=== PATIENT | female | born 1945 | race Caucasian/White ===

== ENCOUNTER 2018-03-06 08:12 | Emergency (ER) | payer MEDICARE, BC, SELFPAY ==
[2018-03-06 08:21] VITALS: BP 142/118; PULSE 91; RESP 16; TEMP 37; O2SAT 96
--- NOTE | 2018-03-06 08:33 | ED.GENADUL_ITS ---
Discharge Plan Disposition Patient Disposition: HOME Condition: Stable Discharge Details Chief Complaint: Abd Prob Clinical Impression: Acute pancreatitis Primary Care Provider: Faith Fink ED Provider: Kirt Wall Home Meds and New Rx's Prescriptions: New ondansetron 4 mg tablet,disintegrating 4 mg PO TID PRN (Reason: nausea and vomiting) 5 Days Qty: 20 RF: 0 oxycodone 5 mg tablet 5 mg PO Q4H PRN (Reason: pain) 10 Days Qty: 12 RF: 0 Continue Lactobac comb [id number] [Probiotic and Acidophilus] 1 EACH capsule 1 ea PO DAILY RF: 0 magnesium oxide [Laxative Dietary Supplement] 500 MG tablet 500 mg PO HS PRN RF: 0 trazodone 50 MG tablet 150 mg PO HS Qty: 270 RF: 4 almotriptan malate [Axert] 12.5 MG tablet 12.5 mg PO as directed Qty: 12 RF: 3 albuterol sulfate [Proventil HFA] 6.7 GM HFA aerosol inhaler 2 puff Inhalation Q4H PRN Qty: 1 RF: 6 fluticasone [Flovent Diskus] 50 MCG blister with device 50 mcg Inhalation BID RF: 0 dicyclomine [Bentyl] 10 MG/1 ML solution 10 mg PO QID RF: 0 gabapentin 100 MG capsule 100 mg PO HS RF: 0 aspirin 325 MG tablet 325 mg PO DAILY RF: 0 vitamins A,C,A-mxnb-ontfbu [PreserVision AREDS] 1 EACH capsule 1 ea PO DAILY RF: 0 Discharge Instructions Instructions: Pancreatitis (ED) Additional Instructions: for pain take 1000mg tylenol and 600mg ibuprofen every 6 hours for pain. If you need additional pain relief take 1 oxycodone follow up this week with your primary care provider's office if you have severe worsening of pain, high fevers or difficulty breathing return to the emergency department Discharge Data Discharge Physician: Kirt Wall Medical Decision Making 72 yo female with hx of zabrina, 2 partial bowel resection, who comes in with intermittent abdominal pain and bloating since december but worse this past week. She has had nausea but no vomit due to her prior zabrina. Has had increased bleching. She saw her pcp yesterday who started her on meds to help her have stools as prior to yesterday she hadn't had a stool in a week. Given her tenderness and hx will obtain labs and imaging to eval for pancreatitis vs sbo. Has no pain out of proprotion to exam so doubt mesenteric ischemia. pt feels better with toradol and zofran, lab work shows lipase in the 400's, has had elevations in the past but is not aware of prior diagnosis of pancreatitis. Awaiting imaging. Doesn't drink alcohol and has no known hx of gallstones so unclear cause of her pancreatitis imaging shows inflammation of the pancreas otherwise no findings. I recommended admission for pain control and fluids but she declined this as she feels she can adequately treat her pain at home. She is hd stable so feel this is reasonable, she has the capacity to make her own decisions and understands she must return if she worsens. Will have her f/u this week with her pcp's office Differential Diagnosis sbo, pancreatitis, ibs HPI General Mode of arrival: ambulatory . Date/Time Provider Initiated Documentation: 03/06/18 08:21 . Limitations to Documentation: no limitations . Information obtained by: patient . History of Present Illness 72 year old F presents to the emergency department with the chief complaint of abdominal pain, described as moderate, with intensity rated at 6. Quality is described as stabbing, and is localized to the abdomen. Patient reports no radiation. Patient started experiencing this week(s) (2) and it has been intermittent. No relieving factors improve symptom(s), No exacerbating factors reported . Patient notes other (nausea). Related Data Home Medications Medication Instructions Recorded Confirmed Lactobac comb 5-[id number] 1 ea PO DAILY 08/24/12 03/06/18 [Probiotic and Acidophilus] magnesium oxide [Laxative Dietary 500 mg PO HS PRN 08/24/12 03/06/18 Supplement] albuterol sulfate [Proventil HFA] 2 puff INHALATION Q4H PRN #1 02/12/16 03/06/18 inhaler almotriptan malate [Axert] 12.5 mg PO as directed #12 tab 02/12/16 03/06/18 trazodone 150 mg PO HS #270 tab-cap 02/12/16 03/06/18 vitamins A,C,M-jdek-mrnzwe 1 ea PO DAILY 03/25/16 03/06/18 [PreserVision AREDS] aspirin 325 mg PO DAILY tab-cap 09/24/17 03/06/18 dicyclomine [Bentyl] 10 mg PO QID 09/24/17 03/06/18 fluticasone [Flovent Diskus] 50 mcg INHALATION BID disk 09/24/17 03/06/18 gabapentin 100 mg PO HS tab-cap 09/24/17 03/06/18 ondansetron 4 mg PO TID PRN 5 Days #20 tab 03/06/18 oxycodone 5 mg PO Q4H PRN 10 Days #12 tab 03/06/18 Previous Rx's Medication Instructions Recorded ondansetron 4 mg PO TID PRN 5 Days #20 tab 03/06/18 oxycodone 5 mg PO Q4H PRN 10 Days #12 tab 03/06/18 Allergies Allergy/AdvReac Type Severity Reaction Status Date / Time codeine Allergy Mild Itching Unverified 03/06/18 08:25 hydromorphone Allergy Mild PRURITIS Unverified 03/06/18 08:25 morphine Allergy Mild PRURITIS Unverified 03/06/18 08:25 oxycodone Allergy Mild ITCH Unverified 03/06/18 08:25 polyethylene glycol Allergy Unknown HIVES Unverified 03/06/18 08:25 topiramate AdvReac Nausea Unverified 03/06/18 08:25 verapamil AdvReac HYPOTENSION Unverified 03/06/18 08:25 General Stated Complaint: Abd Prob SERENA: 3 Review of Systems Review of Systems All systems reviewed & are unremarkable except as noted in HPI and below Constitutional Denies chills, Denies fever(s) and Denies weakness Eyes Denies loss of vision ENT Denies change in voice Cardiovascular Denies chest pain and Denies dyspnea Respiratory Denies dyspnea Gastrointestinal Denies vomiting Genitourinary Denies dysuria Musculoskeletal Denies joint swelling Integumentary/Breasts Denies rash Neurologic Denies loss of vision and Denies weakness Psychiatric Denies depression Endocrine Denies cold intolerance and Denies heat intolerance PFSH Family History Mother Essential hypertension Personal history of malignant neoplasm Hyperlipidemia Father Diabetes Heart disease Sister Diabetes Brother Diabetes Essential hypertension Personal history of malignant neoplasm Hyperlipidemia Grandfather No problems noted. Grandfather No problems noted. Grandmother No problems noted. Grandmother No problems noted. Brother Alcohol abuse Personal history of malignant neoplasm Depression Obesity Brother No problems noted. Brother Diabetes Essential hypertension Heart disease Hyperlipidemia Brother Essential hypertension Heart disease Hyperlipidemia Myocardial infarction Brother Essential hypertension Depression Hyperlipidemia Sister Diabetes Essential hypertension Depression Hyperlipidemia Obesity Sister Benign neoplasm of brain Diabetes Essential hypertension Depression Hyperlipidemia Hypothyroidism Sister Diabetes Essential hypertension Depression Hyperlipidemia Sister Diabetes Essential hypertension Depression Hyperlipidemia Obesity Sister Diabetes Essential hypertension Hyperlipidemia Son Asthma Son No problems noted. Son Depression Asthma Social History Smoking/Tobacco Use Status: Former Tobacco Use Surgical History Fasciectomy, Palmar Fracture, Closed Treatment Ligation of fallopian tube (~12/1977) Zabrina Fundoplication Partial resection of colon Spinal Fusion (~06/2002) Spine Discectomy gastropexy Exam Const General: no acute distress Orientation: alert HENMT Head: normal to inspection Ears: external ears normal General nose exam: external nose normal Mouth: moist mucous membranes Eyes General: appearance normal, both eyes and all related structures Neck Neck: normal visual inspection Resp Effort & Inspection: normal respiratory effort and able to speak in complete sentences Cardio Rate: regular rate GI Inspection: other (luq tenderness, no significant distention or pain elsewhere, no guarding or rebound) Skin General skin exam: no rashes or lesions noted Neuro General: alert and oriented x3 Extrem General: normal to inspection Psych Mental Status: mental status grossly normal Course Vital Signs Temperature 37 C 03/06/18 08:21 Pulse 91 H 03/06/18 08:21 Respiratory Rate 16 03/06/18 08:21 Blood Pressure 142/118 H 03/06/18 08:21 Pulse Oximetry 96 03/06/18 08:21 Temperature 37 C 03/06/18 08:21 Temperature Source Skin 03/06/18 08:21 Pulse 91 H 03/06/18 08:21 Respiratory Rate 16 03/06/18 08:21 Respiratory Effort Non-Labored 03/06/18 08:21 Blood Pressure 142/118 H 03/06/18 08:21 Pulse Oximetry 96 03/06/18 08:21 Pain Level 8 03/06/18 08:21
--- NOTE | 2018-03-06 08:42 | DI.CT_ITS ---
SYMPTOM/DIAGNOSIS: ABD PAIN, BLOATING ABDOMEN AND PELVIC CT: The lung bases are clear. There is suture material at the GE junction. The liver, spleen, gallbladder, kidneys and adrenals are unremarkable. There is a question of mild prominence of the pancreatic head. No definite inflammatory changes are seen. Suture material is seen at the cecum and rectum. No bowel dilatation or inflammatory changes are seen. There is no free air or free fluid. The urinary bladder is nearly empty. The uterus and ovaries are unremarkable. There are post surgical changes at L 4-5. IMPRESSION: Previous stomach and colon surgery. No acute abnormality.
[2018-03-06 08:44] LABS: Abs Immature Grans 0.01 k/cumm (0.0-0.09); Absolute Basophil Count 0.02 k/cumm (0.0-0.2); Absolute Eosinophil Count 0.07 k/cumm (0.0-0.7); Absolute Lymphocyte Count 0.78 k/cumm (1.2-3.4); Absolute Monocyte Count 0.64 k/cumm (0.11-0.7); Absolute Neutrophil Count 5.59 k/cumm (1.2-6.7); Basophils % 0.3; HCT 43.7 % (36.0-46.0); HGB 14.7 g/dL (12.0-15.5); Immature Grans % 0.1; Mean Corp. HGB Concentration 33.6 g/dL (32.0-36.0); Mean Corpuscular Hemoglobin 31.7 pg (27.0-33.0); Mean Corpuscular Volume 94.4 fL (80-95); Mean Platelet Volume 9.9 fL (8.0-11.0); Neutrophils % 78.6; Platelet Count 171 x1000/uL (130-400); RBC 4.63 m/cumm (4.00-5.20); RBC Distribution Width 13.2 % (11.7-14.6); White Blood Cell Count 7.11 k/cumm (4.4-10.8)
[2018-03-06] MEDS: Normal Saline 1,000 ML 1000 ML IV (08:50)
[2018-03-06] MEDS: Ondansetron 4 MG/2 ML VIAL IVP (08:50)
[2018-03-06 08:53] LABS: Bilirubin Small (Negative); Blood Trace-intact (Negative); Clarity Sl Cloudy; Glucose Negative (Negative); Ketones Trace mg/dL (Negative); Leukocyte Esterase Trace (Negative); Nitrite Negative (Negative); Urobilinogen 0.2 EU/dL (Up TO 0.2); pH 7.5 (5-8)
[2018-03-06 08:55] LABS: Prothrombin Time 9.4 sec (9.3-10.8)
[2018-03-06] MEDS: Ketorolac 15 MG/ML VIAL IVP (08:55)
[2018-03-06 08:58] LABS: ALT 32 U/L (12-78); AST 17 U/L (15-37); Albumin 3.5 g/dL (3.4-5.0); Alkaline Phosphatase 83 U/L (46-116); Anion Gap 9.8 mmol/L (3-11); BUN 12 mg/dL (7-18); Bilirubin, Total 0.4 mg/dL (0.2-1.0); CO2 29.2 mmol/L (21.0-32.0); CREATININE 0.89 mg/dL (0.55-1.02); Calcium 8.7 mg/dL (8.5-10.1); Chloride 105 mmol/L (98-107); Glucose 117 mg/dL (70-100); Lipase 466 U/L (73-393); Potassium 3.6 mmol/L (3.5-5.1); Sodium 144 mmol/L (136-145); Total Protein 6.9 g/dL (6.4-8.2)
[2018-03-06 09:03] LABS: Bacteria Negative HPF (Negative); C & S Indicated? No; Casts Negative LPF (Negative); Crystals Many Amorphous HPF (Negative); Epithelial Cells Rare HPF (Negative); Mucus Negative (Negative); WBC 0-2 HPF (0-5)
--- NOTE | 2018-03-06 09:50 | DI.VRAD_ITS ---
EXAM: CT Abdomen and Pelvis Without Intravenous Contrast EXAM DATE/TIME: 03/06/2018 8:43 AM CLINICAL HISTORY: 72 years old, female; Pain and signs and symptoms; Bloating; Abdominal pain; Other: Upper abd pain TECHNIQUE: Axial computed tomography images of the abdomen and pelvis without intravenous contrast. All CT scans at this facility use at least one of these dose optimization techniques: automated exposure control; mA and/or kV adjustment per patient size (includes targeted exams where dose is matched to clinical indication); or iterative reconstruction. Coronal and sagittal reformatted images were created and reviewed. COMPARISON: CT ABD PELVIS WITH CONTRAST 05/25/2012 2:21 PM FINDINGS: Lower thorax: Sutures at the gastroesophageal junction ABDOMEN: Liver: Normal. No mass. Gallbladder and bile ducts: Normal. No calcified stones. No ductal dilation. Pancreas: Inflammatory changes around the head of the pancreas may represent pancreatitis in the appropriate clinical setting. Spleen: Normal. No splenomegaly. Adrenals: Normal. No mass. Kidneys and ureters: No renal calculus. No ureteral calculus. Stomach and bowel: Sutures in the right colon Sutures in the distal rectosigmoid Appendix: No evidence of appendicitis. PELVIS: Bladder: Unremarkable as visualized. Reproductive: Unremarkable as visualized. ABDOMEN and PELVIS: Intraperitoneal space: Normal. No free air. No significant fluid collection. Bones/joints: No acute fracture. No dislocation. Soft tissues: Unremarkable. Vasculature: Normal. No abdominal aortic aneurysm. Lymph nodes: Normal. No enlarged lymph nodes. IMPRESSION: Inflammatory changes around the head of the pancreas may represent pancreatitis in the appropriate clinical setting. Dictated and Authenticated by: Duyen Shukla MD. Ordering:ELSIE JORDAN MD
[2018-03-06 10:30] VITALS: BP 105/45; PULSE 57; RESP 16; TEMP 37; O2SAT 96
--- NOTE | 2018-03-08 08:18 | PDOC.ERCMPRO ---
Care Management Progress Note 03/08- requested assistance with a PCP (Aleks) f/u this week for pancreatitis. Referral faxed to [facility] this am.
--- NOTE | 2018-03-08 08:19 | CMPROGNOTE_ITS ---
Care Management Progress Note 03/08- requested assistance with a PCP (Aleks) f/u this week for pancreatitis. Referral faxed to [facility] this am.
== END 2018-03-06 12:53 | disposition home or self-care (01) ==
PROVIDERS: Emergency Provider Emergency Medicine; PCP Family Medicine
DX: K85.90 Acute pancreatitis without necrosis or infection, unspecified (principal); K58.9 Irritable bowel syndrome, unspecified
CPT/HCPCS: 36415; 80053; 80076; 83690; 96361; 96374; 96375; 99284; 74176; 81003; 81015; 85025; 85610; 99285; J1885; J2405

== ENCOUNTER 2018-05-13 01:23 | Outpatient (CLI) | payer MEDICARE, BC, SELFPAY ==
--- NOTE | 2018-05-13 13:07 | DI.MAMMO_ITS ---
SYMPTOMS/DIAGNOSIS: SCREENING, Z12.31 MAMMOGRAM: Mammograms were interpreted according to the usual protocol including computer analysis with CAD system, tomosynthesis and C view imaging. The breast tissue is of moderate radiodensity. There is no evidence of a dominant mass. There are no suspicious calcifications. When compared with previous examinations there is a question regarding interval development of a small symmetrical ovoid area of nodularity in the lateral portion of the left breast. The finding most likely representing an intramammary lymph node. The possibility of a small malignancy could not be entirely excluded and further assessment with a craniocaudad compression spot film and ultrasound is recommended. Category 0. Breast density Category B. MQSA ASSESSMENT OF FINDINGS: Incomplete: Needs additional imaging evaluation. Category 0. Patient will receive a letter notifying them of these results. BI-RADS category B. There are scattered areas of fibroglandular density.
== END 2018-05-13 01:43 ==
PROVIDERS: PCP Family Medicine; Visit Provider Family Medicine
DX: Z12.31 Encounter for screening mammogram for malignant neoplasm of breast (principal); R92.8 Other abnormal and inconclusive findings on diagnostic imaging of breast
CPT/HCPCS: 77063; 77067

== ENCOUNTER 2018-05-25 01:19 | Outpatient (CLI) | payer MEDICARE, BC, SELFPAY ==
--- NOTE | 2018-05-25 14:32 | DI.COMBO_ITS ---
SYMPTOMS/DIAGNOSIS: F/U MAMMO, ASYMMETRICAL OVOID AREA OF NODULARITY ADDITIONAL VIEWS OF THE RIGHT BREAST AND RIGHT BREAST ULTRASOUND: Additional images are interpreted according to the usual protocol including tomosynthesis and 2D imaging. Additional views of the right breast show a well circumscribed ovoid nodule in the outer right breast. No associated microcalcifications or architectural distortion is present. A targeted right breast ultrasound was evaluated. The upper outer and lower outer quadrants were evaluated sonographically. There is an ovoid hypoechoic radially oriented mass at the 9:00 o'clock position of the right breast 4 cm from the nipple. No internal blood flow, posterior acoustic enhancement or shadowing is seen. IMPRESSION: No definite evidence for malignancy. Sonographically benign appearing nodule in the right breast. This may represent an intraparenchymal lymph node. A 3 month follow up right ultrasound is recommended for re- evaluation. Category 3. The findings were discussed with the patient on the date of the examination. Breast density B. MQSA ASSESSMENT OF FINDINGS: Probably benign. Three month follow up recommended. Category 3. Patient will receive a letter notifying them of these results. BI-RADS category B. There are scattered areas of fibroglandular density.
== END 2018-05-25 01:39 ==
PROVIDERS: PCP Family Medicine; Visit Provider Family Medicine
DX: Z12.31 Encounter for screening mammogram for malignant neoplasm of breast (principal); R92.8 Other abnormal and inconclusive findings on diagnostic imaging of breast; N63.11 Unspecified lump in the right breast, upper outer quadrant
CPT/HCPCS: 76642; 77063; 77067

== ENCOUNTER 2018-08-26 00:08 | Outpatient (CLI) | payer MEDICARE, BC, SELFPAY ==
--- NOTE | 2018-08-26 14:03 | DI.US_ITS ---
SYMPTOMS/DIAGNOSIS: 3-MONTH F/U TO PREVIOUS ABNORMAL ULTRASOUND, R93.89 RIGHT BREAST ULTRASOUND: Ultrasound examination was obtained to reevaluate a well-circumscribed nodule seen in the right breast in the 9 o'clock position on examination of 05/25/2018. This is considerably smaller on today's examination measuring about 4 mm in greatest diameter and remains well circumscribed and of low echogenicity with no increased vascular flow in the area. CONCLUSION: Interval decrease in size of small right breast nodule. Follow-up mammogram suggested according to usual screening protocol. Category 1.
== END 2018-08-26 00:28 ==
PROVIDERS: PCP Family Medicine; Visit Provider Family Medicine
DX: R92.8 Other abnormal and inconclusive findings on diagnostic imaging of breast (principal); N63.11 Unspecified lump in the right breast, upper outer quadrant
CPT/HCPCS: 76642

== ENCOUNTER 2019-02-10 00:46 | Outpatient (CLI) | payer MEDICARE, BC, SELFPAY ==
--- NOTE | 2019-02-10 15:30 | DI.DEXA_ITS ---
EXAM: XR DEXA BONE DENSITY W/WO CHEL INDICATION: POSTMENOPAUSAL Z78.0, SCREENING OSTEOPOROSIS. COMPARISON: Prior examination of September 2012 TECHNIQUE: 2D digital imaging was performed. FINDINGS: DEXA scan was performed according to the usual protocol. Findings for the lumbar spine scanning are a T-score of -1.5. Prior examination of September 2012 showed lumbar T-score of -1.0. Left hip scanning shows T-score of -1.2. Left femoral neck T-score of -1.9. Prior examination of 2012 showed left hip T-score of -1.2 Right forearm scanning shows T-score of -2.1, prior examination of September 2012 showed right forearm T-sc ore of -1.3. IMPRESSION: Findings consistent with osteopenia according to the WHO criteria. Lateral vertebral scanogram shows no evidence of vertebral compression fracture.
[2019-02-10 17:16] LABS: Anion Gap 7.2 mmol/L (3-11); BUN 13 mg/dL (7-18); CO2 28.8 mmol/L (21.0-32.0); CREATININE 0.89 mg/dL (0.55-1.02); Calcium 8.7 mg/dL (8.5-10.1); Chloride 104 mmol/L (98-107); Glucose 98 mg/dL (70-100); Magnesium 2.2 mg/dL (1.8-2.4); Potassium 4.3 mmol/L (3.5-5.1); Sodium 140 mmol/L (136-145); Vitamin B12 353 pg/mL (193-986)
== END 2019-02-10 01:06 ==
PROVIDERS: PCP Family Medicine; Visit Provider Internal Medicine Gastroenterology
DX: M85.88 Other specified disorders of bone density and structure, other site (principal); Z78.0 Asymptomatic menopausal state; Z79.899 Other long term (current) drug therapy
CPT/HCPCS: 36415; 77080; 80048; 82607; 83735

== ENCOUNTER 2019-04-25 10:08 | Outpatient (REF) | payer MEDICARE, BC, SELFPAY ==
[2019-04-25 14:37] LABS: ALT 26 U/L (14-59); AST 18 U/L (15-37); Albumin 3.7 g/dL (3.4-5.0); Alkaline Phosphatase 92 U/L (46-116); BUN 14 mg/dL (7-18); Bilirubin, Total 0.4 mg/dL (0.2-1.0); CREATININE 0.84 mg/dL (0.55-1.02); Calcium 8.8 mg/dL (8.5-10.1); Calculated LDL 157 mg/dL; Chloride 106 mmol/L (98-107); Cholesterol 228 mg/dL (<200); Glucose 98 mg/dL (74-106); HDL Cholesterol 56 mg/dL (40-60); Potassium 3.9 mmol/L (3.5-5.1); Sodium 144 mmol/L (136-145); Total Protein 6.6 g/dL (6.4-8.2); Triglyceride 79 mg/dL (<150)
[2019-04-25 14:55] LABS: Hemoglobin A1C 5.7 % (4.5-6.2)
== END 2019-04-25 10:28 ==
LOC: NCHCN 10:08
PROVIDERS: PCP Family Medicine; Visit Provider Family Medicine
DX: E78.5 Hyperlipidemia, unspecified (principal); M79.7 Fibromyalgia; Z79.899 Other long term (current) drug therapy
CPT/HCPCS: 80053; 80061; 83036

== ENCOUNTER 2019-05-02 12:52 | Outpatient (CLI) | payer MEDICARE, BC, SELFPAY ==
[2019-05-02 14:15] LABS: Vitamin D 25 Total 44.2 ng/ml (30-100)
== END 2019-05-02 13:12 ==
PROVIDERS: PCP Family Medicine; Visit Provider Internal Medicine Gastroenterology
DX: R79.9 Abnormal finding of blood chemistry, unspecified (principal); M85.88 Other specified disorders of bone density and structure, other site
CPT/HCPCS: 36415; 82306

== ENCOUNTER 2019-06-02 00:50 | Outpatient (CLI) | payer MEDICARE, BC, SELFPAY ==
--- NOTE | 2019-06-02 13:01 | DI.MAMMO_ITS ---
EXAM: MG MAMMO SCREENING CLINICAL HISTORY: SCREENING Z12.31, CYST N60.09. TECHNIQUE: Full field digital CC and MLO mammographic images were obtained with 3D tomosynthesis and utilizing computer aided detection (CAD). COMPARISON: 2009 through 2018 FINDINGS: Breast Density - Category B - Scattered areas of fibroglandular density Masses/Architectural Distortion: None seen. Previously noted area of nodularity seen in the lateral r ight breast is not present on the current exam. Microcalcifications: No suspicious pleomorphic-type calcifications are seen. Skin Thickening/Nipple Retraction: None. Axilla: Unremarkable. IMPRESSION: 1. BI-RADS category 1, negative. No significant interval change with no specific features of maligna ncy noted. 2. Unless there is more urgent need, screening mammography is recommended, as per [employer] guidelines. BI-RADS Cat 1 - Negative Breast Density - Category B - Scattered areas of fibroglandular density A negative radiographic report should not delay biopsy if a dominant or clinically suspicious mass is present. Up to ten percent of cancers are not identified on mammography. A negative report may reinforce clinical impression. Adenosis and dense breasts may obscure an underlying neoplasm. False positive reports average 6 to 10%. Patient will receive a letter notifying them of these results.
== END 2019-06-02 01:10 ==
PROVIDERS: PCP Family Medicine; Visit Provider Family Medicine
DX: Z12.31 Encounter for screening mammogram for malignant neoplasm of breast (principal); N60.01 Solitary cyst of right breast
CPT/HCPCS: 77063; 77067

== ENCOUNTER 2020-04-25 09:30 | Outpatient (REF) | payer MEDICARE, BC, SELFPAY ==
[2020-04-25 22:15] LABS: HCT 45.3 % (36.0-46.0); HGB 14.9 g/dL (11.2-15.7); MCH 31.6 pg (27.0-33.0); MCHC 32.9 % (32.0-36.0); MCV 96.2 fL (80-95); MPV 10.7 fL (8.0-11.0); Platelet Count 191 10^3/uL (130-400); RBC 4.71 10^6/uL (3.93-5.22); RDW 12.2 % (11.7-14.6); RDW-SD 43.7 fL; WBC 6.34 10^3/uL (4.4-10.8)
[2020-04-25 22:32] LABS: ALT 22 U/L (14-59); AST 17 U/L (15-37); Albumin 3.8 g/dL (3.4-5.0); Alkaline Phosphatase 89 U/L (46-116); Anion Gap 6.7 mmol/L (3-11); BUN 14 mg/dL (7-18); Bilirubin, Total 0.5 mg/dL (0.2-1.0); CO2 30.3 mmol/L (21.0-32.0); CREATININE 0.95 mg/dL (0.55-1.02); Calcium 8.8 mg/dL (8.5-10.1); Calculated LDL 159 mg/dL (<100); Chloride 105 mmol/L (98-107); Cholesterol 237 mg/dL (<200); Estimated GFR 57.35 (mL/min/1.73m2); Glucose 99 mg/dL (74-106); HDL Cholesterol 54 mg/dL (40-60); Potassium 3.8 mmol/L (3.5-5.1); Sodium 142 mmol/L (136-145); Total Protein 6.7 g/dL (6.4-8.2); Triglyceride 120 mg/dL (<150)
== END 2020-04-25 09:50 ==
LOC: NCHCN 09:30
PROVIDERS: PCP Family Medicine; Visit Provider Family Medicine
DX: E78.5 Hyperlipidemia, unspecified (principal)
CPT/HCPCS: 80053; 80061; 85027

== ENCOUNTER 2020-05-04 15:47 | Emergency (ER) | payer MEDICARE, BC, SELFPAY ==
[2020-05-04] VITALS (14 sets, daily range): BP systolic 108–139; BP diastolic 64–113; PULSE 75–92; RESP 13–25; TEMP 36.8; O2SAT 94–97
--- NOTE | 2020-05-04 16:15 | DI.CT_ITS ---
EXAM: CT HEAD WO CLINICAL HISTORY: headache. TECHNIQUE: Imaging Protocol: Axial computed tomography images with coronal and sagittal reformatted images were created and reviewed COMPARISON: No exams were available for comparison FINDINGS: Ventricles and Extra axial spaces: Normal in size and morphology for the patient's age. Hemorrhage: None. Cerebral parenchyma: Normal. Midline shift: None. Brainstem/Cerebellum: Normal. Calvarium: Normal. Visualized Paranasal sinuses/Mastoids: Clear. Soft Tissues: Unremarkable. IMPRESSION: No acute intracranial process. RADIATION DOSE DELIVERED: 647.29mGy.cm Total DLP DATA REPOSITORY: All CT scans at this facility are submitted to the National Radiology Data Registry (NRDR) Dose Index Registry (DIR) with the [employer] (A[employer]). RADIATION OPTIMIZATION: All CT scans at this facility use at least one of these dose optimization te chniques: automated exposure control; mA and/or kV adjustment per patient size (includes targeted exa ms where dose is matched to clinical indication); or iterative reconstruction.
--- NOTE | 2020-05-04 16:15 | RT.EKG_ITS ---
APPROVED REPORT Exam: Resting ECG Patient Location: E HR:77 bpm ECG Measurements Heart Rate 77 AXIS NM 180 P 62 QRSd 74 QRS 4 QT 359 T 14 QTc 406 Conclusion Sinus rhythm...normal P axis, V-rate 60- 99
[2020-05-04 16:32] LABS: Abs Immature Grans 0.01 10^3/uL (0.0-0.06); Absolute Basophil Count 0.02 10^3/uL (0.0-0.2); Absolute Eosinophil Count 0.05 10^3/uL (0.0-0.7); Absolute Lymphocyte Count 0.65 10^3/uL (1.2-3.4); Absolute Monocyte Count 0.62 10^3/uL (0.1-0.8); Absolute Neutrophil Count 7.13 10^3/uL (1.2-6.7); Basophils % 0.2; Eosinophils % 0.6; HCT 46.1 % (36.0-46.0); HGB 15.4 g/dL (11.2-15.7); Immature Grans % 0.1; Lymphocytes % 7.7; MCH 31.3 pg (27.0-33.0); MCHC 33.4 % (32.0-36.0); MCV 93.7 fL (80-95); MPV 9.7 fL (8.0-11.0); Monocytes % 7.3; Neutrophils % 84.1; Nucleated RBC 0 %; Platelet Count 184 10^3/uL (130-400); RBC 4.92 10^6/uL (3.93-5.22); RDW 12.1 % (11.7-14.6); RDW-SD 42.3 fL; WBC 8.48 10^3/uL (4.4-10.8)
--- NOTE | 2020-05-04 16:35 | W.ED.GENAD ---
Discharge Plan Disposition Patient Disposition: HOME Condition: Stable Discharge Details Clinical Impression: GCA (giant cell arteritis) Primary Care Provider: Faith Fink ED Provider: Karmne Harrell Home Meds and New Rx's Prescriptions: New prednisone 20 mg tablet 80 mg PO DAILY Qty: 60 RF: 0 No Action Probiotic and Acidophilus 1 EACH capsule 1 ea PO DAILY RF: 0 magnesium oxide [Laxative Dietary Supplement] 500 MG tablet 500 mg PO HS PRN RF: 0 trazodone 50 MG tablet 150 mg PO HS Qty: 270 RF: 4 almotriptan malate [Axert] 12.5 MG tablet 12.5 mg PO as directed Qty: 12 RF: 3 albuterol sulfate [Proventil HFA] 6.7 GM HFA aerosol inhaler 2 puff Inhalation Q4H PRN Qty: 1 RF: 6 Flovent Diskus 50 MCG blister with device 50 mcg Inhalation BID RF: 0 gabapentin 100 MG capsule 400 mg PO HS RF: 0 PreserVision AREDS 1 EACH capsule 1 ea PO DAILY RF: 0 Discharge Instructions Instructions: Temporal Arteritis (ED) Additional Instructions: You need to return to the emergency department immediately if you have any visual changes or disturbances. Take prednisone 80 mg daily with food You need an ophthalmology appointment on Thursday May 07, 2020. You will need rheumatology follow up in one week. Referrals: [facility] - (you need an opthomologist follow up appointment early next week. case management has been consulted to help schedule this appointment. you will need an temporal artery biopsy in addition to exam) Medical Decision Making patient presents with left temporal pain, left jaw claudication, with suspected history of GCA and subsequent loss of vision in right eye 5 years ago. took 40 mg oral prednisone prior to arrival establish IV, labs including cbc, cmp, mag trop, sed rate crp. given 1 liter of NS with compazine [address] unremarkable. labs reviewed and suspicion for GCA, case discussed with DR Pedroza at [facility] who recommends 80mg oral prednisone daily and outpatient f/u, emergent return to ED for any visual changes. discharge plan reviewed with pt who acknowledges plan. case management consulted for coordinating outpatient ophthalmology appointment early next week. Medical Records Medical records reviewed: Yes I reviewed the patient's medical records. Medical records narrative: Patient Name: SHIREEN WOODS #: [id number]: ER Ordering Provider: : REG ER Primary Care Provider: Gloria Fink of Exam: 05/04/20ex: F : 5Age: 75 Exam(s) PROCEDURE INFORMATION: Exam: CT Head Without Contrast Exam date and time: 05/04/2020 5:22 PM Age: 75 years old Clinical indication: Other: Headache TECHNIQUE: Imaging protocol: Computed tomography of the head without contrast. Radiation optimization: All CT scans at this facility use at least one of these dose optimization techniques: automated exposure control; mA and/or kV adjustment per patient size (includes targeted exams where dose is matched to clinical indication); or iterative reconstruction. COMPARISON: MRI - BRAIN WO CONTRAST 03/13/2015 4:57 PM FINDINGS: Brain: Normal. No hemorrhage. Unremarkable white matter. No mass effect. Cerebral ventricles: No ventriculomegaly. Bones/joints: Unremarkable. No acute fracture. Paranasal sinuses: Visualized sinuses are unremarkable. No fluid levels. Mastoid air cells: Visualized mastoid air cells are well aerated. Soft tissues: Unremarkable. IMPRESSION: No acute intracranial abnormality. Dictated and Authenticated by: Phuong Howell MD. Ordering:TANNA Peraza MD Lab Data Lab results reviewed: Yes I reviewed the patient's lab results. Lab results narrative: Laboratory Results - last 24 hr 05/04/20 05/04/20 16:20 16:20 WBC 8.48 RBC 4.92 Hgb 15.4 Hct 46.1 H MCV 93.7 MCH 31.3 MCHC 33.4 RDW 12.1 Plt Count 184 MPV 9.7 Immature Gran % 0.1 Neutrophils % 84.1 Lymphocytes % 7.7 Monocytes % 7.3 Eosinophils % 0.6 Basophils % 0.2 Nucleated RBC % 0 Absolute Neutrophils 7.13 H Absolute Lymphocytes 0.65 L Absolute Monocytes 0.62 Absolute Eosinophils 0.05 Absolute Basophils 0.02 ESR 60 H Sodium 136 Potassium 3.9 Chloride 99 Carbon Dioxide 27.7 Anion Gap 9.3 BUN 11 Creatinine 0.88 Estimated GFR/1.73 m2 >= 60.00 Glucose 105 Calcium 9.2 Magnesium 2.2 Total Bilirubin 0.5 AST 23 ALT 32 Alkaline Phosphatase 111 Troponin I < 0.05 C-Reactive Protein 7.41 H Total Protein 8.2 Albumin 3.9 HPI General Mode of arrival: ambulatory. Date/Time Provider Initiated Documentation: 05/04/20 15:48. Limitations to Documentation: no limitations. Information obtained by: patient. HPI Narrative: Patient presents to the emergency department with a 1 day history of left temporal pain jaw claudication who denies any visual changes or disturbances in that left eye. 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 She also had a Covid test which is pending for a fever of unknown origin. She has chronic IBS with intermittent diarrhea no new symptoms she denies any respiratory complaints shortness of breath chest pain edema nausea or vomiting. She does have a history of migraines and that her symptoms initially were a typical migraine but states that today it is more evident these are the symptoms that were similar to symptoms she had 5 years ago and ultimately last vision in her right suspected to be caused by giant cell arteritis. Related Data Home Medications Medication Instructions Recorded Confirmed Probiotic and Acidophilus 1 ea PO DAILY 08/24/12 05/04/20 magnesium oxide [Laxative Dietary 500 mg PO HS PRN 08/24/12 05/04/20 Supplement] albuterol sulfate [Proventil HFA] 2 puff INHALATION Q4H PRN #1 02/12/16 05/04/20 inhaler almotriptan malate [Axert] 12.5 mg PO as directed #12 tab 02/12/16 05/04/20 trazodone 150 mg PO HS #270 tab-cap 02/12/16 05/04/20 PreserVision AREDS 1 ea PO DAILY 03/25/16 05/04/20 Flovent Diskus 50 mcg INHALATION BID disk 09/24/17 05/04/20 gabapentin 400 mg PO HS tab-cap 09/24/17 05/04/20 prednisone 80 mg PO DAILY #60 tab 05/04/20 Previous Rx's Medication Instructions Recorded prednisone 80 mg PO DAILY #60 tab 05/04/20 Allergies Allergy/AdvReac Type Severity Reaction Status Date / Time codeine Allergy Mild Itching Unverified 05/04/20 16:02 hydromorphone Allergy Mild PRURITIS Unverified 05/04/20 16:02 morphine Allergy Mild PRURITIS Unverified 05/04/20 16:02 oxycodone Allergy Mild ITCH Unverified 05/04/20 16:02 polyethylene glycol Allergy Unknown HIVES Unverified 05/04/20 16:02 topiramate AdvReac Nausea Unverified 05/04/20 16:02 verapamil AdvReac HYPOTENSION Unverified 05/04/20 16:02 General Stated Complaint: GenMedical SERENA: 3 Review of Systems All systems reviewed & are unremarkable except as noted in HPI and below Constitutional Constitutional: Denies body ache(s), Reports fever(s) and Reports headache(s) Eyes Eyes: Denies blurry vision, Denies change in vision, Denies diplopia, Denies eye discharge, Denies irritation, Denies itchy eyes, Denies loss of peripheral vision, Denies loss of vision, Denies other visual disturbances, Denies eye pain, Denies seeing flashes, Denies spots in vision and Denies tunnel vision ENT Ears, Nose, Mouth, and Throat: Reports headache(s) Cardiovascular Cardiovascular: Denies chest pain and Denies dyspnea Respiratory Respiratory: Denies chest congestion and Denies dyspnea Gastrointestinal Gastrointestinal: Denies abdominal pain, Denies constipation, Reports diarrhea (chronic and unchanged) and Denies nausea Neurologic Neurologic: Reports headache(s) and Denies loss of vision Allergic/Immunologic Allergic/Immunologic: Denies itchy eyes [facility] Surgical History Fasciectomy, Palmar 2004; right 2005; left Fracture, Closed Treatment FEMUR; DR. ESQUEDA gastropexy [facility] Ligation of fallopian tube (~12/1977) Zabrina Fundoplication Partial resection of colon 07/2009; 07/26/13 Spinal Fusion (~06/2002) Spine Discectomy Family History Mother Essential hypertension Personal history of malignant neoplasm BREAST Hyperlipidemia Father Diabetes Heart disease Sister Diabetes Brother Diabetes Essential hypertension Personal history of malignant neoplasm COLON Hyperlipidemia Grandfather No problems noted. Grandfather No problems noted. Grandmother No problems noted. Grandmother No problems noted. Brother Alcohol abuse Personal history of malignant neoplasm LIVER Depression Obesity Brother No problems noted. Brother Diabetes Essential hypertension Heart disease Hyperlipidemia Brother Essential hypertension Heart disease Hyperlipidemia Myocardial infarction Brother Essential hypertension Depression Hyperlipidemia Sister Diabetes Essential hypertension Depression Hyperlipidemia Obesity Sister Benign neoplasm of brain Diabetes Essential hypertension Depression Hyperlipidemia Hypothyroidism Sister Diabetes Essential hypertension Depression Hyperlipidemia Sister Diabetes Essential hypertension Depression Hyperlipidemia Obesity Sister Diabetes Essential hypertension Hyperlipidemia Son Asthma Son No problems noted. Son Depression Asthma Social History Smoking/Tobacco Use Status: Former Tobacco Use Smoking risk assessment performed?: Yes Alcohol Intake: current Alcohol Intake frequency: holidays/special occasions only Drug use: Never Substance use type: does not use Do you feel safe at home: Yes Do you feel safe in your relationship?: Yes Exam Const General: cooperative, healthy appearing, comfortable, no acute distress and anxious Nutritional Appearance: overweight Orientation: alert, awake and oriented x3 HENMT Head: normal to inspection, normocephalic and atraumatic Mouth: oral mucosae normal Eyes Periorbital: periorbital findings normal Eyelids: eyelids normal Conjunctivae: conjunctivae normal Sclera: sclerae normal Cornea: corneas normal EOM: EOM intact bilaterally Chest Chest: normal inspection of the chest Resp Effort & Inspection: normal respiratory effort Auscultation: clear to auscultation bilaterally Cardio Rate: regular rate Rhythm: regular rhythm GI Inspection: normal to inspection Palpation: soft Auscultation: normal bowel sounds Skin General skin exam: no rashes or lesions noted Neuro General: patient alert, patient awake, patient oriented x3, moves all extremities and no focal motor deficits Course Vital Signs Vital signs: Vital Signs Temperature 36.8 C 05/04/20 15:57 Pulse 85 05/04/20 15:57 Respiratory Rate 18 05/04/20 15:57 Blood Pressure 139/113 H 05/04/20 15:57 Pulse Oximetry 96 05/04/20 15:57 Temperature 36.8 C 05/04/20 15:57 Pulse 85 05/04/20 15:57 Respiratory Rate 18 05/04/20 15:57 Respiratory Effort Non-Labored 05/04/20 16:06 Blood Pressure 139/113 H 05/04/20 15:57 Blood Pressure Position Sitting 05/04/20 15:57 Pulse Oximetry 96 05/04/20 15:57 Oxygen Delivery Method Room Air 05/04/20 15:57 Oxygen Flow Rate 0 05/04/20 15:57 Pain Level 6 05/04/20 15:57 Lab/Test Results Lab/Test Results: Laboratory Tests Range/Units 05/04/20 16:20 WBC (4.4-10.8) 10^3/uL 8.48 RBC (3.93-5.22) 10^6/uL 4.92 Hgb (11.2-15.7) g/dL 15.4 Hct (36.0-46.0) % 46.1 H MCV (80-95) fL 93.7 MCH (27.0-33.0) pg 31.3 MCHC (32.0-36.0) % 33.4 RDW (11.7-14.6) % 12.1 Plt Count (130-400) 10^3/uL 184 MPV (8.0-11.0) fL 9.7 Immature Gran % 0.1 Neutrophils % 84.1 Lymphocytes % 7.7 Monocytes % 7.3 Eosinophils % 0.6 Basophils % 0.2 Nucleated RBC % % 0 Absolute Neutrophils (1.2-6.7) 10^3/uL 7.13 H Absolute Lymphocytes (1.2-3.4) 10^3/uL 0.65 L Absolute Monocytes (0.1-0.8) 10^3/uL 0.62 Absolute Eosinophils (0.0-0.7) 10^3/uL 0.05 Absolute Basophils (0.0-0.2) 10^3/uL 0.02
--- NOTE | 2020-05-04 16:37 | DI.RAD_ITS ---
EXAM: XR CHEST 1V IN DI DEPT CLINICAL HISTORY: jaw pain TECHNIQUE: 2D digital imaging was performed. COMPARISON: CR ABD FLAT UPRIGHT PA CHEST from 04/17/2015 FINDINGS: MEDIASTINUM: Normal. HEART: Normal. PULMONARY VASCULATURE: Normal. LUNGS: Clear. PLEURAL SPACE: No pleural effusion or pneumothorax. BONE:Within normal limits for the patient's age. OTHER FINDINGS:Normal. IMPRESSION: No acute pulmonary findings. DATA REPOSITORY: RADIATION DOSE DELIVERED:
[2020-05-04] MEDS: Normal Saline 1,000 ML 1000 ML IV (16:45)
[2020-05-04] MEDS: Prochlorperazine 10 MG/2 ML VIAL IVP (16:46)
[2020-05-04 16:53] LABS: ALT 32 U/L (14-59); AST 23 U/L (15-37); Albumin 3.9 g/dL (3.4-5.0); Alkaline Phosphatase 111 U/L (46-116); Anion Gap 9.3 mmol/L (3-11); BUN 11 mg/dL (7-18); Bilirubin, Total 0.5 mg/dL (0.2-1.0); C-Reactive Protein 7.41 mg/dL (0.0-0.3); CO2 27.7 mmol/L (21.0-32.0); CREATININE 0.88 mg/dL (0.55-1.02); Calcium 9.2 mg/dL (8.5-10.1); Chloride 99 mmol/L (98-107); Glucose 105 mg/dL (74-106); Magnesium 2.2 mg/dL (1.8-2.4); Potassium 3.9 mmol/L (3.5-5.1); Sodium 136 mmol/L (136-145); Total Protein 8.2 g/dL (6.4-8.2); Troponin I < 0.05 ng/mL (<0.06)
[2020-05-04 17:08] LABS: ESR 60 mm/hr (0-30)
--- NOTE | 2020-05-04 17:25 | DI.VRAD_ITS ---
PROCEDURE INFORMATION: Exam: XR Chest, 1 View Exam date and time: 05/04/2020 5:19 PM Age: 75 years old Clinical indication: Other: Jaw pain TECHNIQUE: Imaging protocol: XR of the chest Views: 1 view. COMPARISON: CR ABD FLAT UPRIGHT PA CHEST 04/17/2015 12:36 PM FINDINGS: Lungs: Patchy infiltrate in the right mid lung field.. Pleural space: Unremarkable. No pleural effusion. No pneumothorax. Heart/Mediastinum: Unremarkable. No cardiomegaly. Bones/joints: Unremarkable. IMPRESSION: Patchy infiltrate in the right mid lung field. Correlate with CT if clinically relevant. Dictated and Authenticated by: Phuong Howell MD. Ordering:TANNA Peraza MD
--- NOTE | 2020-05-04 17:31 | DI.VRAD_ITS ---
PROCEDURE INFORMATION: Exam: CT Head Without Contrast Exam date and time: 05/04/2020 5:22 PM Age: 75 years old Clinical indication: Other: Headache TECHNIQUE: Imaging protocol: Computed tomography of the head without contrast. Radiation optimization: All CT scans at this facility use at least one of these dose optimization techniques: automated exposure control; mA and/or kV adjustment per patient size (includes targeted exams where dose is matched to clinical indication); or iterative reconstruction. COMPARISON: MRI - BRAIN WO CONTRAST 03/13/2015 4:57 PM FINDINGS: Brain: Normal. No hemorrhage. Unremarkable white matter. No mass effect. Cerebral ventricles: No ventriculomegaly. Bones/joints: Unremarkable. No acute fracture. Paranasal sinuses: Visualized sinuses are unremarkable. No fluid levels. Mastoid air cells: Visualized mastoid air cells are well aerated. Soft tissues: Unremarkable. IMPRESSION: No acute intracranial abnormality. Dictated and Authenticated by: Phuong Howell MD. Ordering:TANNA Peraza MD
--- NOTE | 2020-05-04 18:51 | NUR.NOTE ---
Nursing Note: Patient did not get the Prednisone 40 mg prior to discharge. I called patient and instructed her to take 40 mg from the Rx. she already has for a total of 80 mg today. States she understands. States she will fill her new Rx. tomorrow. Provider notified.
== END 2020-05-04 18:20 | disposition home or self-care (01) ==
PROVIDERS: Emergency Provider Nurse Practitioner Acute Care; PCP Family Medicine
DX: M31.6 Other giant cell arteritis (principal); I73.9 Peripheral vascular disease, unspecified
CPT/HCPCS: 36415; 80053; 85652; 93005; 96361; 96374; 99285; 70450; 71045; 83735; 84484; 85025; 86140; 93010; J0780

== ENCOUNTER 2020-05-30 15:17 | Outpatient (REF) | payer MEDICARE, BC, SELFPAY ==
[2020-05-30 13:25] LABS: C-Reactive Protein 0.07 mg/dL (0.0-0.3)
== END 2020-05-30 15:37 ==
LOC: NCHCN 15:17
PROVIDERS: PCP Family Medicine; Visit Provider Family Medicine
DX: M31.9 Necrotizing vasculopathy, unspecified (principal)
CPT/HCPCS: 86140

== ENCOUNTER 2020-06-04 01:20 | Outpatient (CLI) | payer MEDICARE, BC, SELFPAY ==
--- NOTE | 2020-06-04 13:27 | DI.MAMMO_ITS ---
EXAM: MG MAMMO SCREENING CLINICAL HISTORY: SCREENING, 05.17 TECHNIQUE: Bilateral full field digital CC and MLO mammographic images were obtained with 3D tomosyn thesis and utilizing computer aided detection (CAD). COMPARISON: Available for comparison. FINDINGS: Masses/Architectural Distortion: None seen. Microcalcifications: No suspicious pleomorphic-type are seen. Skin Thickening/Nipple Retraction: None. IMPRESSION: 1. No significant interval change with no specific features of malignancy noted. 2. Unless there is more urgent need, screening mammography is recommended, as per [place] guidelines. BI-RADS Category 1 - Negative Breast Density - Category B - Scattered areas of fibroglandular density Breast density category C or D implies that the patient has dense breast tissue. Dense breast tissue is very common and is not abnormal but dense breast tissue can make it harder to find cancer on a ma mmogram. Also, dense breast tissue may increase their breast cancer risk. This information about the result of the mammogram report was provided to the patient to raise their awareness. Use this report when you speak with the patient about their risks for breast cancer, which includes their family hist ory. At that time, you may recommend for more screening tests (Ultrasound or MRI) as they might be us eful based on their risk. A negative radiographic report should not delay biopsy if a dominant or clinically suspicious mass is present. Up to ten percent of cancers are not identified on mammography. A negative report may reinforce clinical impression. Adenosis and dense breasts may obscure an underlying neoplasm. False positive reports average 6 to 10%. Patient will receive a letter notifying them of these results.
== END 2020-06-04 01:40 ==
PROVIDERS: PCP Family Medicine; Visit Provider Family Medicine
DX: Z12.31 Encounter for screening mammogram for malignant neoplasm of breast (principal)
CPT/HCPCS: 77063; 77067

== ENCOUNTER 2020-08-10 02:22 | Outpatient (CLI) | payer MEDICARE, BC, SELFPAY ==
[2020-08-10 11:27] LABS: C-Reactive Protein 0.43 mg/dL (0.0-0.3)
== END 2020-08-10 02:23 | disposition home or self-care (01) ==
LOC: LBO 02:22
PROVIDERS: PCP Family Medicine; Visit Provider Internal Medicine Rheumatology
DX: M35.3 Polymyalgia rheumatica (principal); M31.6 Other giant cell arteritis; Z79.899 Other long term (current) drug therapy
CPT/HCPCS: 36415; 86140

== ENCOUNTER 2020-09-03 03:16 | Outpatient (CLI) | payer MEDICARE, BC, SELFPAY ==
[2020-09-03 12:51] LABS: C-Reactive Protein 0.19 mg/dL (0.0-0.3)
== END 2020-09-03 03:17 | disposition home or self-care (01) ==
LOC: LOS 03:16
PROVIDERS: PCP Family Medicine; Visit Provider Internal Medicine Rheumatology
DX: M35.3 Polymyalgia rheumatica (principal); M31.6 Other giant cell arteritis; Z79.899 Other long term (current) drug therapy
CPT/HCPCS: 36415; 86140

== ENCOUNTER 2020-09-17 02:21 | Outpatient (CLI) | payer MEDICARE, BC, SELFPAY ==
[2020-09-17 12:49] LABS: C-Reactive Protein 0.34 mg/dL (0.0-0.3)
== END 2020-09-17 02:22 | disposition home or self-care (01) ==
LOC: LOS 02:21
PROVIDERS: PCP Family Medicine; Visit Provider Internal Medicine Rheumatology
DX: M35.3 Polymyalgia rheumatica (principal); M31.6 Other giant cell arteritis; Z79.899 Other long term (current) drug therapy
CPT/HCPCS: 36415; 86140

== ENCOUNTER 2020-10-01 03:17 | Outpatient (CLI) | payer MEDICARE, BC, SELFPAY ==
[2020-10-01 12:29] LABS: C-Reactive Protein 0.27 mg/dL (0.0-0.3)
== END 2020-10-01 03:18 | disposition home or self-care (01) ==
LOC: LOS 03:17
PROVIDERS: PCP Family Medicine; Visit Provider Internal Medicine Rheumatology
DX: M35.3 Polymyalgia rheumatica (principal); Z79.899 Other long term (current) drug therapy; M31.6 Other giant cell arteritis
CPT/HCPCS: 36415; 86140

== ENCOUNTER 2020-10-18 10:01 | Outpatient (CLI) | payer MEDICARE, BC, SELFPAY ==
[2020-10-18 12:20] LABS: C-Reactive Protein 0.51 mg/dL (0.0-0.3)
== END 2020-10-18 10:02 | disposition home or self-care (01) ==
PROVIDERS: PCP Family Medicine; Visit Provider Internal Medicine Rheumatology
DX: M35.3 Polymyalgia rheumatica (principal); M31.6 Other giant cell arteritis; Z79.899 Other long term (current) drug therapy
CPT/HCPCS: 36415; 86140

== ENCOUNTER 2020-11-16 01:28 | Outpatient (CLI) | payer MEDICARE, BC, SELFPAY ==
[2020-11-16 12:44] LABS: C-Reactive Protein 0.26 mg/dL (0.0-0.3)
== END 2020-11-16 01:29 | disposition home or self-care (01) ==
LOC: LOS 01:28
PROVIDERS: PCP Family Medicine; Visit Provider Internal Medicine Rheumatology
DX: M31.6 Other giant cell arteritis (principal); M35.3 Polymyalgia rheumatica; Z79.899 Other long term (current) drug therapy
CPT/HCPCS: 36415; 86140

== ENCOUNTER 2020-12-14 01:32 | Outpatient (CLI) | payer MEDICARE, BC, SELFPAY ==
[2020-12-14 12:39] LABS: C-Reactive Protein 0.25 mg/dL (0.0-0.3)
== END 2020-12-14 01:33 | disposition home or self-care (01) ==
LOC: LOS 01:32
PROVIDERS: PCP Family Medicine; Visit Provider Internal Medicine Rheumatology
DX: M35.3 Polymyalgia rheumatica (principal); M31.6 Other giant cell arteritis; Z79.899 Other long term (current) drug therapy
CPT/HCPCS: 36415; 86140

== ENCOUNTER 2021-01-01 03:12 | Outpatient (CLI) | payer MEDICARE, BC, SELFPAY ==
[2021-01-01 12:37] LABS: C-Reactive Protein 0.51 mg/dL (0.0-0.3)
== END 2021-01-01 03:13 | disposition home or self-care (01) ==
LOC: LOS 03:13
PROVIDERS: PCP Family Medicine; Visit Provider Internal Medicine Rheumatology
DX: M31.6 Other giant cell arteritis (principal); Z79.899 Other long term (current) drug therapy; M35.3 Polymyalgia rheumatica
CPT/HCPCS: 36415; 86140

== ENCOUNTER 2021-01-16 02:37 | Outpatient (CLI) | payer MEDICARE, BC, SELFPAY ==
[2021-01-16 12:52] LABS: C-Reactive Protein 0.38 mg/dL (0.0-0.3)
== END 2021-01-16 02:38 | disposition home or self-care (01) ==
LOC: LOS 02:38
PROVIDERS: PCP Family Medicine; Visit Provider Internal Medicine Rheumatology
DX: M31.6 Other giant cell arteritis (principal); Z79.899 Other long term (current) drug therapy; M35.3 Polymyalgia rheumatica
CPT/HCPCS: 36415; 86140

== ENCOUNTER 2021-01-29 01:13 | Outpatient (CLI) | payer MEDICARE, BC, SELFPAY ==
[2021-01-29 12:29] LABS: C-Reactive Protein 0.39 mg/dL (0.0-0.3)
== END 2021-01-29 01:14 | disposition home or self-care (01) ==
LOC: LOS 01:14
PROVIDERS: PCP Family Medicine; Visit Provider Internal Medicine Rheumatology
DX: M35.3 Polymyalgia rheumatica (principal); M31.6 Other giant cell arteritis; Z79.899 Other long term (current) drug therapy
CPT/HCPCS: 36415; 86140

== ENCOUNTER 2021-02-14 03:53 | Outpatient (CLI) | payer MEDICARE, BC, SELFPAY ==
[2021-02-14 13:45] LABS: C-Reactive Protein 0.24 mg/dL (0.0-0.3)
== END 2021-02-14 03:54 | disposition home or self-care (01) ==
LOC: LOS 03:53
PROVIDERS: PCP Family Medicine; Visit Provider Internal Medicine Rheumatology
DX: M35.3 Polymyalgia rheumatica (principal); M31.6 Other giant cell arteritis; Z79.899 Other long term (current) drug therapy
CPT/HCPCS: 36415; 86140

== ENCOUNTER 2021-03-04 02:52 | Outpatient (CLI) | payer MEDICARE, BC, SELFPAY ==
[2021-03-04 10:39] LABS: C-Reactive Protein 0.34 mg/dL (0.0-0.3)
== END 2021-03-04 02:53 | disposition home or self-care (01) ==
LOC: LOS 02:52
PROVIDERS: PCP Family Medicine; Visit Provider Internal Medicine Rheumatology
DX: M35.3 Polymyalgia rheumatica (principal); Z79.899 Other long term (current) drug therapy; M31.6 Other giant cell arteritis
CPT/HCPCS: 36415; 86140

== ENCOUNTER 2021-03-18 02:36 | Outpatient (CLI) | payer MEDICARE, BC, SELFPAY ==
[2021-03-18 12:43] LABS: Anion Gap 10.1 mmol/L (3-11); BUN 15 mg/dL (7-18); CO2 27.9 mmol/L (21.0-32.0); Calcium 8.6 mg/dL (8.5-10.1); Chloride 105 mmol/L (98-107); Estimated GFR 54.05 (mL/min/1.73m2); Glucose 122 mg/dL (74-106); Sodium 143 mmol/L (136-145)
[2021-03-18 13:05] LABS: C-Reactive Protein 0.39 mg/dL (0.0-0.3)
== END 2021-03-18 02:37 | disposition home or self-care (01) ==
PROVIDERS: PCP Family Medicine; Visit Provider Internal Medicine Rheumatology
DX: Z79.899 Other long term (current) drug therapy (principal); M31.6 Other giant cell arteritis; M35.3 Polymyalgia rheumatica
CPT/HCPCS: 36415; 80048; 86140

== ENCOUNTER 2021-04-01 03:12 | Outpatient (CLI) | payer MEDICARE, BC, SELFPAY ==
[2021-04-01 13:58] LABS: C-Reactive Protein 0.38 mg/dL (0.0-0.3)
== END 2021-04-01 03:13 | disposition home or self-care (01) ==
LOC: LOS 03:12
PROVIDERS: Internal Medicine Rheumatology; PCP Family Medicine; Visit Provider Family Medicine
DX: M35.3 Polymyalgia rheumatica (principal); Z79.899 Other long term (current) drug therapy; M31.6 Other giant cell arteritis
CPT/HCPCS: 36415; 86140

== ENCOUNTER 2021-04-05 02:10 | Outpatient (CLI) | payer MEDICARE, BC, SELFPAY ==
--- NOTE | 2021-04-05 14:30 | DI.DEXA_ITS ---
Exam(s) XR DEXA BONE DENSITY W/WO CHEL EXAM: XR DEXA BONE DENSITY W/WO CHEL CLINICAL HISTORY: OSTEOPENIA M85.88 TECHNIQUE: App[employer] Horizon C densitometer COMPARISON: CR XR DEXA BONE DENSITY W/WO CHEL from 2012 and 02/10/2019 FINDINGS: Lateral view of the thoracic and lumbar spine shows no evidence of compression fractures. Bone mineral density measurements of the lumbar spine correspond to a total T-score of -1.8, consiste nt with osteopenia. 3.9 percent decrease from 2019. 9.1 percent decrease compared with 2012. Bone mineral density measurements of the left hip correspond to a total T-score of -1.4. The femora l neck T-score is -1.9, in the osteopenic range. 3.9 percent decrease when compared with 2018. 3. 1 percent decrease compared with 2012.. The left forearm bone mineral density measurements correspond to a T-score of the distal 3rd of -2.3 , in the osteopenic range.. FRAX: 10 year fracture risk of major osteoporotic fracture 19 percent. 10 year risk of hip fracture 5.5 percent. IMPRESSION: Osteopenia of the lumbar spine, left hip and left forearm. Mildly decreased bone density when compar ed with previous exams.
== END 2021-04-05 02:30 ==
PROVIDERS: PCP Family Medicine; Visit Provider Internal Medicine Gastroenterology
DX: M85.88 Other specified disorders of bone density and structure, other site (principal)
CPT/HCPCS: 77080

== ENCOUNTER 2021-04-17 17:00 | Outpatient (REF) | payer MEDICARE, BC, SELFPAY ==
[2021-04-17 22:49] LABS: ALT 37 U/L (14-59); AST 24 U/L (15-37); Albumin 3.9 g/dL (3.4-5.0); Alkaline Phosphatase 81 U/L (46-116); Anion Gap 7.9 mmol/L (3-11); BUN 15 mg/dL (7-18); Bilirubin, Total 0.5 mg/dL (0.2-1.0); CO2 30.1 mmol/L (21.0-32.0); CREATININE 1.1 mg/dL (0.55-1.02); Calcium 9.5 mg/dL (8.5-10.1); Calculated LDL 181 mg/dL (<100); Chloride 103 mmol/L (98-107); Cholesterol 273 mg/dL (<200); Estimated GFR 48.29 (mL/min/1.73m2); Glucose 109 mg/dL (74-106); HDL Cholesterol 71 mg/dL (40-60); Potassium 4.4 mmol/L (3.5-5.1); Sodium 141 mmol/L (136-145); Total Protein 6.8 g/dL (6.4-8.2); Triglyceride 109 mg/dL (<150)
== END 2021-04-17 17:01 | disposition home or self-care (01) ==
LOC: NCHCN 17:00
PROVIDERS: PCP Family Medicine; Visit Provider Family Medicine
DX: E78.5 Hyperlipidemia, unspecified (principal); F32.9 Major depressive disorder, single episode, unspecified; M85.88 Other specified disorders of bone density and structure, other site
CPT/HCPCS: 80053; 80061

== ENCOUNTER 2021-05-09 03:24 | Outpatient (CLI) | payer MEDICARE, BC, SELFPAY ==
[2021-05-09 15:47] LABS: Anion Gap 8.5 mmol/L (3-11); BUN 14 mg/dL (7-18); CO2 29.5 mmol/L (21.0-32.0); Chloride 105 mmol/L (98-107); Estimated GFR 53.91 (mL/min/1.73m2); Glucose 109 mg/dL (74-106); Potassium 3.7 mmol/L (3.5-5.1); Sodium 143 mmol/L (136-145)
[2021-05-09 16:05] LABS: C-Reactive Protein 0.37 mg/dL (0.0-0.3)
== END 2021-05-09 03:25 | disposition home or self-care (01) ==
PROVIDERS: PCP Family Medicine; Visit Provider Internal Medicine Rheumatology
DX: M35.3 Polymyalgia rheumatica (principal); M31.6 Other giant cell arteritis; Z79.899 Other long term (current) drug therapy
CPT/HCPCS: 36415; 80048; 86140

== ENCOUNTER 2021-05-27 04:40 | Outpatient (CLI) | payer MEDICARE, SELFPAY ==
[2021-05-27 13:00] LABS: C-Reactive Protein 0.42 mg/dL (0.0-0.3)
[2021-05-27 13:15] LABS: Vitamin D 25 Total 57.1 ng/mL (30-100)
== END 2021-05-27 04:41 | disposition home or self-care (01) ==
LOC: LBO 04:40
PROVIDERS: PCP Family Medicine; Visit Provider Internal Medicine Rheumatology
DX: M85.88 Other specified disorders of bone density and structure, other site (principal); M35.3 Polymyalgia rheumatica; M31.6 Other giant cell arteritis; Z79.899 Other long term (current) drug therapy
CPT/HCPCS: 36415; 80048; 82306; 86140

== ENCOUNTER 2021-06-12 01:42 | Outpatient (CLI) | payer MEDICARE, SELFPAY ==
[2021-06-12 09:56] LABS: C-Reactive Protein 0.39 mg/dL (0.0-0.3)
== END 2021-06-12 01:43 | disposition home or self-care (01) ==
LOC: LBO 01:42
PROVIDERS: PCP Family Medicine; Visit Provider Internal Medicine Rheumatology
DX: M35.3 Polymyalgia rheumatica (principal); M31.6 Other giant cell arteritis; Z79.899 Other long term (current) drug therapy
CPT/HCPCS: 36415; 86140

== ENCOUNTER 2021-06-14 10:19 | Emergency (ER) | payer MEDICARE, SELFPAY ==
[2021-06-14 10:26] VITALS: BP 143/82; PULSE 64; RESP 16; TEMP 36.4; O2SAT 96
--- NOTE | 2021-06-14 10:30 | DI.RAD_ITS ---
Exam(s) XR WRIST RT COMPLETE EXAM: XR WRIST RT COMPLETE CLINICAL HISTORY: pain volar radial after lifting. TECHNIQUE: 2D digital imaging was performed of the right wrist. Three views were obtained. PA, lat eral and oblique views were obtained. COMPARISON: No exams were available for comparison FINDINGS: BONES: No acute fracture is present. No bony destructive lesion is seen. JOINTS: The carpal bones are normally aligned. Chondrocalcinosis is present. SOFT TISSUE: Normal. IMPRESSION: No acute fracture or dislocation. DATA REPOSITORY: RADIATION DOSE DELIVERED:
--- NOTE | 2021-06-14 10:57 | ED.GENADUL_ITS ---
Discharge Plan Disposition Patient Disposition: HOME Condition: Stable Discharge Details Clinical Impression: Arthritis of right wrist Primary Care Provider: Faith Fink ED Provider: Antelmo Harrington Home Meds and New Rx's Prescriptions: Continued Probiotic and Acidophilus 1 EACH capsule 1 ea PO DAILY RF: 0 magnesium oxide [Laxative Dietary Supplement] 500 MG tablet 500 mg PO HS PRN RF: 0 trazodone 50 MG tablet 75 mg PO HS Qty: 270 RF: 4 albuterol sulfate [Proventil HFA] 6.7 GM HFA aerosol inhaler 2 puff Inhalation Q4H PRN Qty: 1 RF: 6 Flovent Diskus 50 MCG blister with device 50 mcg Inhalation BID RF: 0 gabapentin 100 MG capsule 400 mg PO HS RF: 0 PreserVision AREDS 1 EACH capsule 1 ea PO DAILY RF: 0 prednisone 20 mg tablet 3 mg PO DAILY RF: 0 Discharge Instructions Instructions: Wrist Injury (ED) Additional Instructions: Use Velcro wrist splint over the next 1 week. Please take acetaminophen (tylenol) - 650mg every 6 hours by mouth as needed for pain. If pain persist, please follow-up with orthopedics. Please contact your primary care physician to arrange follow-up. Return to the ER immediately for any worsening or new concerning symptoms. Referrals: [facility] [Provider Group] Faith Fink [Primary Care Provider] - Discharge Data Discharge Date/Time-TO BE ENTERED AT DEPARTURE: 06/14/21 11:40 Medical Decision Making 76-year-old female here with right wrist pain over the past 4 days after lifting heavy weight. Patient is neurovascular intact distally. Tender over distal radius volarly. She has had a nodule removed from her right wrist in the remote past and tenderness the same localized to area under scar. I am concerned about tendinitis versus less likely fracture. Patient is concerned pain symptoms very similar to when she fell and fractured her left wrist. X-ray of the right wrist was reviewed and interpreted by radiology: No fracture or acute injury. Suspect tendinitis. Lidocaine patch applied for analgesia. Patient has Velcro volar wrist splint and this was reapplied. I recommended supportive care over the next week and recommended follow-up with orthopedics if pain persists. HPI General Mode of arrival: ambulatory . Date/Time Provider Initiated Documentation: 06/14/21 10:40 . Limitations to Documentation: no limitations . Information obtained by: patient . HPI Narrative: 76-year-old female presents with chief complaint of right wrist pain. Patient notes that 4 days ago she assisted her sister after a fall. She does not recall any specific trauma to her wrist but believes she injured it while lifting her sister from ground. Pain is moderate to severe, worse with movement. Pain localized to volar wrist. No associated numbness/tingling. Related Data Home Medications Medication Instructions Recorded Confirmed Probiotic and Acidophilus 1 ea PO DAILY 08/24/12 06/14/21 magnesium oxide [Laxative Dietary 500 mg PO HS PRN 08/24/12 06/14/21 Supplement] albuterol sulfate [Proventil HFA] 2 puff INHALATION Q4H PRN #1 02/12/16 06/14/21 inhaler trazodone 75 mg PO HS #270 tab-cap 02/12/16 06/14/21 PreserVision AREDS 1 ea PO DAILY 03/25/16 06/14/21 Flovent Diskus 50 mcg INHALATION BID disk 09/24/17 06/14/21 gabapentin 400 mg PO HS tab-cap 09/24/17 06/14/21 prednisone 3 mg PO DAILY 06/14/21 06/14/21 Allergies Allergy/AdvReac Type Severity Reaction Status Date / Time codeine Allergy Mild Itching Unverified 06/14/21 10:30 hydromorphone Allergy Mild PRURITIS Unverified 06/14/21 10:30 morphine Allergy Mild PRURITIS Unverified 06/14/21 10:30 oxycodone Allergy Mild ITCH Unverified 06/14/21 10:30 polyethylene glycol Allergy Unknown HIVES Unverified 06/14/21 10:30 topiramate AdvReac Nausea Unverified 06/14/21 10:30 verapamil AdvReac HYPOTENSION Unverified 06/14/21 10:30 General Stated Complaint: Orthopedic SERENA: 4 Review of Systems Constitutional Constitutional: Denies fever(s) Musculoskeletal Musculoskeletal: Reports as per HPI Neurologic Neurologic: Reports as per HPI PFSH All Active Problems (Updated 06/14/21 @ 11:28 by Antelmo Harrington MD) Arthritis of right wrist (Acute) Deep venous thrombosis of lower extremity (Acute ~1975) Diverticulitis (Acute 07/26/13) Status post sigmoid resection (Acute 07/26/13) Lap. Hand assisted sigmoid resection with colorectal anastomosis done by Dr. Jonathan Nguyen. Surgical History Fasciectomy, Palmar 2004; right 2005; left Fracture, Closed Treatment FEMUR; DR. ESQUEDA gastropexy [facility] [place] Ligation of fallopian tube (~12/1977) Zabrina Fundoplication Partial resection of colon 07/2009; 07/26/13 Spinal Fusion (~06/2002) Spine Discectomy Family History Mother Essential hypertension Personal history of malignant neoplasm BREAST Hyperlipidemia Father Diabetes Heart disease Sister Diabetes Brother Diabetes Essential hypertension Personal history of malignant neoplasm COLON Hyperlipidemia Grandfather No problems noted. Grandfather No problems noted. Grandmother No problems noted. Grandmother No problems noted. Brother Alcohol abuse Personal history of malignant neoplasm LIVER Depression Obesity Brother No problems noted. Brother Diabetes Essential hypertension Heart disease Hyperlipidemia Brother Essential hypertension Heart disease Hyperlipidemia Myocardial infarction Brother Essential hypertension Depression Hyperlipidemia Sister Diabetes Essential hypertension Depression Hyperlipidemia Obesity Sister Benign neoplasm of brain Diabetes Essential hypertension Depression Hyperlipidemia Hypothyroidism Sister Diabetes Essential hypertension Depression Hyperlipidemia Sister Diabetes Essential hypertension Depression Hyperlipidemia Obesity Sister Diabetes Essential hypertension Hyperlipidemia Son Asthma Son No problems noted. Son Depression Asthma Social History Smoking/Tobacco Use Status: Former Tobacco Use Smoking risk assessment performed?: Yes Alcohol Intake: current Alcohol Intake frequency: a few times a week Drug use: Never Substance use type: does not use Do you feel safe at home: Yes Do you feel safe in your relationship?: Yes Exam Const General: cooperative and no acute distress HENMT Mouth: moist mucous membranes Eyes Conjunctivae: normal conjunctivae Sclera: normal sclerae Cardio Rate: regular rate and not tachycardic Rhythm: regular rhythm Skin General skin exam: no rashes or lesions noted Extrem General: no edema Right upper extremity: wrist Details: tenderness Location: of the distal radius and abnormal ROM Details: pain with active ROM during Details: with extension and with flexion; no swelling, no unusual warmth, no lacerations, no ecchymosis and no deformity Other: no scaphoid tenderness Course Vital Signs Vital signs: Vital Signs Temperature 36.4 C L 06/14/21 10:26 Pulse 64 06/14/21 10:26 Respiratory Rate 16 06/14/21 10:26 Blood Pressure 143/82 H 06/14/21 10:26 Pulse Oximetry 96 06/14/21 10:26 Temperature 36.4 C L 06/14/21 10:26 Temperature Source Skin 06/14/21 10:26 Pulse 64 06/14/21 10:26 Respiratory Rate 16 06/14/21 10:26 Respiratory Effort 06/14/21 10:26 Blood Pressure 143/82 H 06/14/21 10:26 Blood Pressure Position Sitting 06/14/21 10:26 Pulse Oximetry 96 06/14/21 10:26 Oxygen Delivery Method Room Air 06/14/21 10:26 Oxygen Flow Rate 0 06/14/21 10:26 Pain Level 6 06/14/21 10:26
[2021-06-14] MEDS: Lidocaine 5% Patch 1 PATCH TP (10:59)
== END 2021-06-14 11:40 | disposition home or self-care (01) ==
PROVIDERS: Emergency Provider Student in an Organized Health Care Education/Training Program; PCP Family Medicine
DX: M13.831 Other specified arthritis, right wrist (principal); M25.531 Pain in right wrist
CPT/HCPCS: 29125; 99283; 73110

== ENCOUNTER 2021-06-26 01:52 | Outpatient (CLI) | payer MEDICARE, SELFPAY ==
[2021-06-26 12:06] LABS: C-Reactive Protein 0.19 mg/dL (0.0-0.3)
== END 2021-06-26 01:53 | disposition home or self-care (01) ==
LOC: LBO 01:52
PROVIDERS: PCP Family Medicine; Visit Provider Internal Medicine Rheumatology
DX: M35.3 Polymyalgia rheumatica (principal); M31.6 Other giant cell arteritis; Z79.899 Other long term (current) drug therapy
CPT/HCPCS: 36415; 86140

== ENCOUNTER 2021-06-28 01:27 | Outpatient (CLI) | payer MEDICARE, SELFPAY ==
--- NOTE | 2021-06-28 | DI.US_ITS ---
Exam(s) US PELVIS TRANSVAGINAL EXAM: US PELVIS TRANSVAGINAL CLINICAL HISTORY: UTERINE ADNEXAL CYST, N83.8. TECHNIQUE: Transabdominal and transvaginal pelvic ultrasound was performed using standard protocol. COMPARISON: CT CT ANGIO CHEST from 04/10/2021 FINDINGS: KIDNEYS: Kidneys are symmetric in size. No evidence of renal calculi. No evidence of hydronephrosis. No renal mass or cyst identified. UTERUS: Position: Anteverted. Size: 4.7 long by 2.5 AP by 4.3 transverse cm Endometrium: 0.3 cm. Normal for patient's menstrual status. Myometrium: There is a 1 cm hypoechoic area in the fundus of the uterus which may represent a fibroid . Cervix: Unremarkable. OVARIES: The right ovary cannot be seen due to overlying bowel. Left: 2.6 x 1.6 x 2.1 cm Cyst or mass: There is a 1.9 x 1.6 x 2 cm simple cyst on the left ovary. CUL-DE-SAC: Free fluid: None. Other: None. IMPRESSION: 1. Normal sonographic appearance of the kidneys. 2. Question of a 1 cm uterine fibroid. 3. The right ovary was not seen due to overlying bowel. 4. There is a 1.9 x 1.6 x 2 cm simple cyst on the left ovary. A follow-up pelvic ultrasound is recom mended in 3-6 months for re-evaluation. DATA REPOSITORY:
--- NOTE | 2021-06-28 | DI.CT_ITS ---
Exam(s) CT CHEST WO EXAM: CT CHEST WO CLINICAL HISTORY: F/U PULMONARY NODULE, R91.1. TECHNIQUE: Imaging protocol: Axial computed tomography images were obtained and coronal and sagittal reformatted images were created and reviewed. COMPARISON: CT CHEST WITH CONTRAST from 09/02/[address] ANGIO CHEST from 04/10/2021 FINDINGS: Tracheobronchial tree: Patent where visualized. Pulmonary parenchyma: No focal consolidation. There are few noncalcified pulmonary nodules in the linda ngs. The largest measures 3 mm. No architectural distortion. Mediastinum and Toya: No dominant adenopathy or fluid collection. The esophagus is unremarkable.Posts urgical changes at the gastroesophageal junction. Thyroid gland: Unremarkable. Pleura: No effusion or pneumothorax. Heart: The heart is not dilated. Coronary artery calcification is present. No pericardial effusion. Aorta: Thoracic aorta non-dilated. Atherosclerosis. Upper abdomen: Unremarkable. Lymph nodes: Within normal limits. Soft tissues: Unremarkable. Bones:Within normal limits for the patient's age. IMPRESSION: A few small pulmonary nodules. The largest measures 3 mm. For high risk patients, optional CT scan of the chest in 12 months may be considered. (Samson et al, 2017). RADIATION DOSE DELIVERED: 661.97mGy.cm Total DLP 661.97mGy.cm Total DLP DATA REPOSITORY: All CT scans at this facility are submitted to the National Radiology Data Registry (NRDR) Dose Index Registry (DIR) with the [employer] (ACR). RADIATION OPTIMIZATION: All CT scans at this facility use at least one of these dose optimization te chniques: automated exposure control; mA and/or kV adjustment per patient size (includes targeted exa ms where dose is matched to clinical indication); or iterative reconstruction.
== END 2021-06-28 01:47 ==
PROVIDERS: PCP Family Medicine; Visit Provider Family Medicine
DX: N83.8 Other noninflammatory disorders of ovary, fallopian tube and broad ligament (principal); N83.292 Other ovarian cyst, left side; R91.1 Solitary pulmonary nodule; R91.8 Other nonspecific abnormal finding of lung field
CPT/HCPCS: 71250; 76830; 76856

== ENCOUNTER 2021-07-10 01:48 | Outpatient (CLI) | payer MEDICARE, SELFPAY ==
[2021-07-10 11:55] LABS: C-Reactive Protein 0.18 mg/dL (0.0-0.3)
== END 2021-07-10 01:49 | disposition home or self-care (01) ==
LOC: LBO 01:48
PROVIDERS: PCP Family Medicine; Visit Provider Internal Medicine Rheumatology
DX: M31.6 Other giant cell arteritis (principal)
CPT/HCPCS: 36415; 86140

== ENCOUNTER 2021-07-23 03:01 | Outpatient (CLI) | payer MEDICARE, SELFPAY ==
--- NOTE | 2021-07-23 10:58 | DI.MAMMO_ITS ---
Exam(s) MAMMO SCREENING EXAM: MAMMO SCREENING CLINICAL HISTORY: SCREENING MAMMO FOR BREAST CANCER Z12.31. TECHNIQUE: Bilateral full field digital CC and MLO mammographic images were obtained with 3D tomosyn thesis and utilizing computer aided detection (CAD). COMPARISON: Prior mammograms were reviewed, the most recent being May 2020. FINDINGS: Are no CAD designations. No new significant radiograph findings in the right breast. In the left breast there are 2 findings seen on the CC 3D imaging, 1 located 3 cm in from the nipple and the other located 6 cm in from the nipple, the former measuring approximately 4 x 2 millimeters a nd the other measuring approximately 7 x 5 millimeters. There are no malignant-appearing microcalcif ication groups in these regions nor elsewhere in either breast. There is no significant architectural distortion nor skin thickening-retraction. IMPRESSION: 1. No radiographic evidence of malignancy in the right breast. 2. Two findings in left breast as described above. Spot compression view and ultrasound recommended. BI-RADS Category 0 - Assessment Incomplete: Need additional imaging evaluation Breast Density - Category B - Scattered areas of fibroglandular density Breast density Category C or D implies that the patient has dense breast tissue. Dense breast tissue can make it harder to find cancer on a mammogram. Dense breast tissue is also associated with an incr eased risk of breast cancer. This information about the result of the mammogram report was provided to the patient to raise their awareness. Use this report when you speak with the patient about their risks for breast cancer, which includes their family history. At that time, you may recommend additional screening tests (Ultrasoun d or MRI) as these tests may add significant information. A negative radiographic report should not delay biopsy if a dominant or clinically suspicious mass is present. Up to ten percent of cancers are not identified on mammography. A negative report may reinforce clinical impression. Adenosis and dense breasts may obscure an underlying neoplasm. False positive reports average 6 to 10%. Patient will receive a letter notifying them of these results.
== END 2021-07-23 03:21 ==
PROVIDERS: PCP Family Medicine; Visit Provider Family Medicine
DX: Z12.31 Encounter for screening mammogram for malignant neoplasm of breast (principal); R92.8 Other abnormal and inconclusive findings on diagnostic imaging of breast
CPT/HCPCS: 77063; 77067

== ENCOUNTER 2021-07-24 04:23 | Outpatient (CLI) | payer MEDICARE, SELFPAY ==
[2021-07-24 13:15] LABS: C-Reactive Protein 0.22 mg/dL (0.0-0.3)
== END 2021-07-24 04:24 | disposition home or self-care (01) ==
LOC: LBO 04:23
PROVIDERS: PCP Family Medicine; Visit Provider Internal Medicine Rheumatology
DX: M31.6 Other giant cell arteritis (principal)
CPT/HCPCS: 36415; 86140

== ENCOUNTER 2021-08-07 01:18 | Outpatient (CLI) | payer MEDICARE, SELFPAY ==
--- NOTE | 2021-08-07 14:30 | DI.MAMMO_ITS ---
Exam(s) MG MAMMO SCREEN CALL BACK UNI US BREAST LT COMPLETE EXAM: MG MAMMO SCREEN CALL BACK UNI -LEFT AND COMPLETE LEFT BREAST ULTRASOUND CLINICAL HISTORY: F/U ABNL MAMMO; TWO LT BREAST FINDINGS ONE 4X2 MM AND OTHER 7X5 MM. TECHNIQUE: Unilateral spot mammographic images obtained with 3D tomosynthesisand utilizing computer aided detection (CAD). . COMPLETE LEFT breast Ultrasound was also performed, including all 4 quadrants, the retroareolar regio n, and the ipsilateral axilla. COMPARISON: Prior mammograms were reviewed. This additional imaging was performed due to findings described on the recent screening mammogram of 07/23/2021. FINDINGS: DIAGNOSTIC LEFT BREAST MAMMOGRAM: Additional mammographic views performed todaydo not dissipate the nodules described on the recent scr eening mammogram report.Therefore we proceeded with breast ultrasound. COMPLETE LEFT BREAST ULTRASOUND: Ultrasound performed today reveals a small benign-appearing septated microcyst measuring 4 x 3.8 mill imeters at the 12 o'clock position, this corresponding the smaller of the 2 nodules described on the recent mammogram.. At the 6 o'clock position there is a slightly larger microcyst measuring 5 x 3 millimeters, this rishi esponding to larger of the 2 nodules on the recent mammogram. At the 4 o'clock position there is a small benign-appearing lymph node measuring 7 x 2 millimeters. Most importantly, there are no concerning solid nodules evident in the left breast. Scanning of the left axilla revealed no significant adenopathy. IMPRESSION: Benign left breast findings as described above, with the findings on ultrasound corresponding to the new nodule seen on the recent screening mammogram. Appropriate follow-up is repeat left breast mammogram in 6 months. The patient was informed of these findings and recommendations prior to leaving the department today. BI-RADS Category 3 - 6 month - Probably Benign Finding: Recommend follow-up mammography in 6 months Breast Density - Category B - Scattered areas of fibroglandular density Breast density Category C or D implies that the patient has dense breast tissue. Dense breast tissue can make it harder to find cancer on a mammogram. Dense breast tissue is also associated with an incr eased risk of breast cancer. This information about the result of the mammogram report was provided to the patient to raise their awareness. Use this report when you speak with the patient about their risks for breast cancer, which includes their family history. At that time, you may recommend additional screening tests (Ultrasoun d or MRI) as these tests may add significant information. A negative radiographic report should not delay biopsy if a dominant or clinically suspicious mass is present. Up to ten percent of cancers are not identified on mammography. A negative report may reinforce clinical impression. Adenosis and dense breasts may obscure an underlying neoplasm. False positive reports average 6 to 10%. Patient will receive a letter notifying them of these results.
== END 2021-08-07 01:38 ==
PROVIDERS: PCP Family Medicine; Visit Provider Family Medicine
DX: Z12.31 Encounter for screening mammogram for malignant neoplasm of breast (principal); D24.2 Benign neoplasm of left breast
CPT/HCPCS: 76642; 77063; 77067

== ENCOUNTER 2021-11-06 02:07 | Outpatient (CLI) | payer MEDICARE, SELFPAY | END 2021-11-06 02:08 | disposition home or self-care (01) | LOC: LOS 02:07 | PROVIDERS: PCP Family Medicine; Visit Provider Internal Medicine Rheumatology ==

== ENCOUNTER 2021-12-06 13:05 | Outpatient (CLI) | payer MEDICARE, SELFPAY ==
[2021-12-06 14:34] LABS: ALT 46 U/L (14-59); AST 38 U/L (15-37); Alkaline Phosphatase 97 U/L (46-116); Anion Gap 9.6 mmol/L (3-11); BUN 11 mg/dL (7-18); Bilirubin, Total 0.3 mg/dL (0.2-1.0); CO2 26.4 mmol/L (21.0-32.0); CREATININE 0.9 mg/dL (0.55-1.02); Calcium 8.8 mg/dL (8.5-10.1); Chloride 105 mmol/L (98-107); Glucose 85 mg/dL (74-106); Potassium 3.8 mmol/L (3.5-5.1); Sodium 141 mmol/L (136-145); Total Protein 7.2 g/dL (6.4-8.2)
== END 2021-12-06 13:06 | disposition home or self-care (01) ==
LOC: LBO 13:07
PROVIDERS: PCP Family Medicine; Visit Provider Family Medicine
DX: E78.5 Hyperlipidemia, unspecified (principal); F32.A Depression, unspecified; M19.90 Unspecified osteoarthritis, unspecified site
CPT/HCPCS: 36415; 80053

== ENCOUNTER 2021-12-23 10:13 | Emergency (ER) | payer MEDICARE, SELFPAY ==
[2021-12-23 10:33] VITALS: BP 121/70; PULSE 69; RESP 18; TEMP 36.6; O2SAT 95
--- NOTE | 2021-12-23 10:45 | DI.CT_ITS ---
Exam(s) CT HEAD CERVICAL SPINE WO EXAM: CT HEAD CERVICAL SPINE WO CLINICAL HISTORY: fall on 11/14 with persistant pain. TECHNIQUE: Imaging Protocol: Axial computed tomography images with coronal and sagittal reformatted images were created and reviewed COMPARISON: CT CT HEAD WO from 05/04/2020 FINDINGS: BRAIN: There are no skull fractures nor fluid in the visualized paranasal sinuses. There is no evidence of intracranial hemorrhage, mass effect, or shift of midline structures. There are no extra-axial fluid collections. The ventricles are not enlarged or shifted and there is no blo od within the ventricular system nor within the basal cisterns. CERVICAL SPINE: There is no evidence of fracture nor listhesis. No significant prevertebral soft tissue swelling. Degenerative changes are noted in the facet joints. There is no significant facet joint malalignment. No significant osseous lesions evident. Some straightening of the cervical lordosis noted IMPRESSION: No acute intracranial findings on this noninfused CT scan of the brain.No significant change from No evidence of cervical spine fracture, malalignment, nor acute compromise of the cervical spinal can al. RADIATION DOSE DELIVERED: 1,324.19mGy.cm Total DLP DATA REPOSITORY: All CT scans at this facility are submitted to the National Radiology Data Registry (NRDR) Dose Index Registry (DIR) with the [employer] (A[employer]). RADIATION OPTIMIZATION: All CT scans at this facility use at least one of these dose optimization te chniques: automated exposure control; mA and/or kV adjustment per patient size (includes targeted exa ms where dose is matched to clinical indication); or iterative reconstruction.
--- NOTE | 2021-12-23 10:51 | ED.GENADUL_ITS ---
Discharge Plan Disposition Patient Disposition: HOME Condition: Stable Discharge Details Clinical Impression: Concussion Primary Care Provider: Faith Fink ED Provider: Gissell Reyez Home Meds and New Rx's Prescriptions: New ondansetron 4 mg tablet,disintegrating 4 mg PO Q6H PRN (Reason: nausea and vomiting) Qty: 10 0RF Continued krill oil 500 mg capsule 500 mg PO DAILY atorvastatin 10 mg tablet 10 mg PO DAILY diphenhydramine HCl [Allergy (diphenhydramine)] 25 mg tablet 25 mg PO Q6H PRN magnesium oxide [Laxative Dietary Supplement] 500 MG tablet 500 mg PO HS PRN Label Comments: 08/17/17 PCP NOTE 250 MG QD. gabapentin 100 MG capsule 400 mg PO HS meloxicam 7.5 mg tablet 7.5 mg PO DAILY PRN calcium carbonate 500 mg calcium (1,250 mg) tablet 1,000 mg PO DAILY rjsnsotruw-gowczzvcwbshg-agcb 50-325-40 mg capsule 1 - 2 cap PO DAILY PRN trazodone 150 mg tablet 75 mg PO QHS PRN omeprazole 40 mg capsule,delayed release(DR/EC) 40 mg PO DAILY PRN magnesium 500 mg tablet 500 mg PO DAILY gabapentin 100 mg capsule 400 mg PO QHS promethazine 12.5 mg tablet 12.5 mg PO Q8H PRN acetaminophen 500 mg capsule 500 mg PO DIRECTED PRN fluticasone propionate [Flovent HFA] 220 mcg/actuation HFA aerosol inhaler 2 puff inhalation BID albuterol sulfate [Proventil HFA] 90 mcg/actuation HFA aerosol inhaler 2 puff inhalation Q4H PRN cholecalciferol (vitamin D3) [Vitamin D3] 25 mcg (1,000 unit) tablet 2,000 unit PO DIRECTED PreserVision AREDS 14,320-226-200 sknx-un-oiae capsule 1 cap PO DAILY PreserVision AREDS 1 EACH capsule 1 ea PO DAILY Discharge Instructions Instructions: Concussion (ED) Additional Instructions: Your imaging and labs are reassuring here today. Please keep your upcoming appointment with your orthopedic provider regarding your right arm fracture. I am concerned that some of your continued headache and nausea may be associated with a concussion. Please encourage hydration. I am concerned that your lack of sleep may also be contributing to some of your symptoms, please try to rest as much as possible. You may find, particularly with your shoulder injury, but you are able to sleep better in a more upright position. Please continue with Tylenol as needed for your discomfort, take as directed on the packaging. Please try to cut back on your oxycodone or hydrocodone as these also may be contributing to some of your symptoms. Please try to encourage brain rest, abstain from screens and heavy physical activity. Please follow-up with your primary care in 1 week for reevaluation. If you develop headache, visual change, inability stay hydrated or any self worsening symptoms please seek care urgently once again. I have prescribed you further oxycodone to use in the event that your nausea comes back. Please take as prescribed. Referrals: Faith Fink [Primary Care Provider] - Discharge Data Discharge Date/Time-TO BE ENTERED AT DEPARTURE: 12/23/21 14:30 Medical Decision Making Patient is a pleasant 76-year-old female presenting today with chief complaint of headache, nausea, general malaise and right arm pain. She reports that she fell on 11/14/2021. She was walking in the airport in [place] when she tripped over a piece of tape and fell landing on her right side. Was diagnosed with a radial fracture and proximal humerus fracture based on patient's report. She reports that she has scheduled follow-up for this, already have imaging for this. Is in a sling and has a plan for that. Has been managing the pain with acetaminophen or oxycodone. She was prescribed both immediate acting and extended release oxycodone by [facility]. She also reports that she took the hydrocodone. She was questioning if some of her intermittent headache and nausea was associated with the oxycodone. Despite changing the medication to something she had leftover from previous surgery, she states that the symptoms have persisted. Patient is status post Zabrina fundoplication is not able to vomit. She states that she did take her promethazine which helped with her nausea but seem to make her malaise, headache worse. She describes it along with this she has a somewhat lightheaded feeling. She denies any shortness of breath, no chest pain. She did not strike her head but feels that she may have gotten whiplash and endorses some neck pain. On exam, patient appears anxious and teary. She is hemodynamically stable. Appears nontoxic. Her neurologic exam is intact. She does have some midline cervical tenderness that extends out bilaterally. No thoracic discomfort. Lungs are clear, normal cardiac auscultation. Her right upper extremity is significantly swollen at the proximal shoulder and have some ecchymosis inferiorly. Patient is not on any anticoagulation. Patient spoke with her primary care who was concerned for subdural. Patient does report that she has chronic migraines and this headache is much different. Describes as intermittent diffuse headache rather than a severe focal headache. We will move forward with head CT, I am in agreement with this concern. We will also include the C-spine given her discomfort. Also considered side effect of her medication and plan to obtain baseline lab, in particular concern for potential renal or hepatic injury based on the medication she has been taking. BRAIN: There are no skull fractures nor fluid in the visualized paranasal sinuses. There is no evidence of intracranial hemorrhage, mass effect, or shift of midline structures.? There are no extra-axial fluid collections.? The ventricles are not enlarged or shifted and there is no blood within the ventricular system nor within the basal cisterns. CERVICAL SPINE: There is no evidence of fracture nor listhesis.? No significant prevertebral soft tissue swelling. Degenerative changes are noted in the facet joints. There is no significant facet joint malalignment. No significant osseous lesions evident. Some straightening of the cervical lordosis noted IMPRESSION: No acute intracranial findings on this noninfused CT scan of the brain.No significant change from 05/04/2020 No evidence of cervical spine fracture, malalignment, nor acute compromise of the cervical spinal canal. Discussed these findings with patient. Advised that she certainly suffered a concussion with her contributing to her symptoms. Also concerned that the hydrocodone this will be contributing to her symptoms. Encourage hydration. Advised that if she can come abstain from narcotics and stick with nonnarcotic pain regimen. She has plan follow-up appointment with orthopedics. I encouraged follow-up with primary care as well. She did do well with Zofran and we will continue to prescribe this to help with symptomatic management. We discussed activity that she should avoid with concussion, encourage brain rest. Return precautions discussed. All of her questions or concerns were addressed and she is in agreement this plan. HPI General Date/Time Provider Initiated Documentation: 12/23/21 10:35 . Limitations to Documentation: no limitations . Information obtained by: patient and RN notes reviewed . History of Present Illness 76 year old F presents to the emergency department with the chief complaint of SMITH, lightheadedness after trauma , described as moderate and similar to prior episodes (hx of migraines), Quality is described as aching, and is localized to the head. Patient reports no radiation. Patient started experiencing this day(s) and it has been intermittent. No relieving factors improve symptom(s), No exacerbating factors reported . Patient notes headaches, malaise and nausea/vomiting; denies confusion (not confused but feels off), chest pain, cough, diaphoresis, fever/chills, loss of appetite, rash, shortness of breath, syncope and weakness. Patient did receive the following treatments prior to arrival, other (hydrocodone for humeral fracture) Related Data Home Medications Medication Instructions Recorded Confirmed magnesium oxide 500 mg tablet 500 mg PO HS PRN 08/24/12 12/26/21 (Laxative Dietary Supplement) vitamins A,C,U-bzzd-nibhvn 14,320 1 ea PO DAILY 03/25/16 12/26/21 unit-226 mg-200 unit capsule (PreserVision AREDS) gabapentin 100 mg capsule 400 mg PO HS 09/24/17 12/26/21 acetaminophen 500 mg capsule 500 mg PO DIRECTED PRN 06/18/21 12/26/21 albuterol sulfate 90 mcg/actuation 2 puff inhalation Q4H PRN 06/18/21 12/26/21 aerosol inhaler (Proventil HFA) vorodhllva-apoomquonszfd-vkcekgbq 1 - 2 cap PO DAILY PRN 06/18/21 12/26/21 50 mg-325 mg-40 mg capsule calcium carbonate 500 mg calcium 1,000 mg PO DAILY 06/18/21 12/26/21 (1,250 mg) tablet cholecalciferol (vitamin D3) 25 2,000 unit PO DIRECTED 06/18/21 12/26/21 mcg (1,000 unit) tablet (Vitamin D3) fluticasone propionate 220 2 puff inhalation BID 06/18/21 12/26/21 mcg/actuation HFA aerosol inhaler (Flovent HFA) gabapentin 100 mg capsule 400 mg PO QHS 06/18/21 12/26/21 magnesium 500 mg tablet 500 mg PO DAILY 06/18/21 12/26/21 meloxicam 7.5 mg tablet 7.5 mg PO DAILY PRN 06/18/21 12/26/21 omeprazole 40 mg capsule,delayed 40 mg PO DAILY PRN 06/18/21 12/26/21 release promethazine 12.5 mg tablet 12.5 mg PO Q8H PRN 06/18/21 12/26/21 trazodone 150 mg tablet 75 mg PO QHS PRN 06/18/21 12/26/21 vitamins A,C,B-enhx-firrmv 14,320 1 cap PO DAILY 06/18/21 12/26/21 unit-226 mg-200 unit capsule (PreserVision AREDS) atorvastatin 10 mg tablet 10 mg PO DAILY 08/14/21 12/26/21 diphenhydramine HCl 25 mg tablet 25 mg PO Q6H PRN 08/14/21 12/26/21 (Allergy (diphenhydramine)) krill oil 500 mg capsule 500 mg PO DAILY 08/14/21 12/26/21 ondansetron 4 mg disintegrating 4 mg PO Q6H PRN nausea and 12/23/21 12/26/21 tablet vomiting #10 tabs Previous Rx's Medication Instructions Recorded ondansetron 4 mg disintegrating 4 mg PO Q6H PRN nausea and 12/23/21 tablet vomiting #10 tabs Allergies Allergy/AdvReac Type Severity Reaction Status Date / Time codeine Allergy Mild Itching Unverified 12/26/21 10:53 hydromorphone Allergy Mild PRURITIS Unverified 12/26/21 10:53 morphine Allergy Mild PRURITIS Unverified 12/26/21 10:53 oxycodone Allergy Mild ITCH Unverified 12/26/21 10:53 topiramate AdvReac Nausea Unverified 12/26/21 10:53 verapamil AdvReac HYPOTENSION Unverified 12/26/21 10:53 General Stated Complaint: Headache SERENA: 3 Review of Systems Constitutional Constitutional: Reports as per HPI, Reports fatigue, Denies fever(s), Denies frequent falls, Reports headache(s) and Denies weakness Eyes Eyes: Reports as per HPI and Denies change in vision ENT Ears, Nose, Mouth, and Throat: Denies vertigo and Reports headache(s) Cardiovascular Cardiovascular: Reports as per HPI, Denies chest pain, Denies dyspnea and Denies dyspnea on exertion Respiratory Respiratory: Reports as per HPI, Denies chest congestion, Denies cough, Denies dyspnea and Denies dyspnea on exertion Gastrointestinal Gastrointestinal: Reports as per HPI, Denies abdominal pain, Denies change in bowel habits and Denies vomiting Musculoskeletal Musculoskeletal: Reports as per HPI, Denies back pain, Denies myalgias, Denies muscle cramps and Denies numbness Integumentary/Breasts Skin/Breast: Reports as per HPI and Denies rash Neurologic Neurologic: Reports as per HPI, Denies confusion, Denies vertigo, Denies frequent falls, Reports headache(s), Denies localized weakness, Denies numbness, Denies sensory deficit and Denies weakness Psychiatric Psychiatric: Denies confusion Endocrine Endocrine: Reports fatigue PFSH All Active Problems (Updated 12/26/21 @ 12:51 by Sharmaine Mesa) Contusion of right knee (Acute) Closed fracture of right proximal humerus (Acute) Concussion (Acute) Deviated nasal septum (Acute) Tonsillolith (Acute) Sensorineural hearing loss, bilateral (Acute) Pulsatile tinnitus, left ear (Acute) GERD (gastroesophageal reflux disease) (Chronic) Macular degeneration (Acute) Hyperlipemia (Acute) Back pain, chronic (Acute) Knee pain, left (Acute) Shoulder pain, right (Acute) Osteoarthritis (Chronic) IBS (irritable bowel syndrome) (Chronic) Fibromyalgia (Acute) Depression (Chronic) Joint pain (Acute) Temporal arteritis (Acute) Dry eyes (Acute) Insomnia (Acute) Complex cyst of uterine adnexa (Acute) Pulmonary nodule (Acute) Hearing loss (Acute) Deep venous thrombosis of lower extremity (Acute ~1975) Diverticulitis (Acute 07/26/13) Status post sigmoid resection (Acute 07/26/13) Lap. Hand assisted sigmoid resection with colorectal anastomosis done by Dr. Jonathan Nguyen. Medical History Asthma Breast cyst Hx of abnormal cervical Papanicolaou smear Migraine Shoulder pain, left Tubular adenoma of colon Surgical History Fasciectomy, Palmar 2004; right 2006; left Fracture, Closed Treatment FEMUR; DR. ESQUEDA gastropexy [facility] [place]/O right wrist surgery H/O shoulder surgery History of bilateral tubal ligation History of bowel resection History of knee replacement procedure of right knee History of Zabrina fundoplication Hx of abdominal surgery Ligation of fallopian tube (~12/1977) Zabrina Fundoplication Partial resection of colon 07/2009; 07/26/13 Spinal Fusion (~06/2002) Spine Discectomy Family History Mother Essential hypertension Personal history of malignant neoplasm BREAST Hyperlipidemia Father Diabetes Heart disease Sister Diabetes Brother Diabetes Essential hypertension Personal history of malignant neoplasm COLON Hyperlipidemia Grandfather No problems noted. Grandfather No problems noted. Grandmother No problems noted. Grandmother No problems noted. Brother Alcohol abuse Personal history of malignant neoplasm LIVER Depression Obesity Brother No problems noted. Brother Diabetes Essential hypertension Heart disease Hyperlipidemia Brother Essential hypertension Heart disease Hyperlipidemia Myocardial infarction Brother Essential hypertension Depression Hyperlipidemia Sister Diabetes Essential hypertension Depression Hyperlipidemia Obesity Sister Benign neoplasm of brain Diabetes Essential hypertension Depression Hyperlipidemia Hypothyroidism Sister Diabetes Essential hypertension Depression Hyperlipidemia Sister Diabetes Essential hypertension Depression Hyperlipidemia Obesity Sister Diabetes Essential hypertension Hyperlipidemia Son Asthma Son No problems noted. Son Depression Asthma Social History Smoking/Tobacco Use Status: Former Tobacco Use Quit Date: 05/18/75 Smoking risk assessment performed?: Yes Alcohol Intake: current Alcohol Intake frequency: a few times a week Drug use: Never Substance use type: does not use What type of physical activity do you participate in: walking Duration: 15-30 minutes/day Frequency: 5-6 times per week Do you feel safe at home: Yes Do you feel safe in your relationship?: Yes Exam Const General: cooperative, healthy appearing, comfortable, no acute distress, well developed, well groomed and anxious Nutritional Appearance: average body habitus and well nourished Orientation: alert, awake and oriented x3 HENMT Head: normal to inspection, no palpable skull fracture, normocephalic and atraumatic Ears: hearing grossly normal bilaterally, external ears normal and TM's normal bilaterally General nose exam: external nose normal Mouth: oral mucosae normal and moist mucous membranes Throat: posterior oropharynx normal Eyes General: appearance normal, both eyes and all related structures Alignment and Position: alignment normal Periorbital: periorbital findings normal Eyelids: eyelids normal Sclera: sclerae normal Cornea: corneas normal Pupils: PERRL EOM: EOM intact bilaterally Neck Neck: normal visual inspection, full ROM, no lymphadenopathy and no meningeal signs Resp Effort & Inspection: normal respiratory effort, able to speak in complete sentences and no respiratory distress Auscultation: clear to auscultation bilaterally, no rales, no rhonchi and no wheezes Cardio Rate: regular rate Rhythm: regular rhythm Heart Sounds: S1 normal and S2 normal Back/Spine/Pelvis Cervical Spine: normal cervical lordosis, cervical ROM normal, No cervical spasm, cervical spinal tenderness and No step off deformity Skin General skin exam: no rashes or lesions noted Neuro General: patient alert, patient awake and patient oriented x3 Cranial Nerves: CN's II-XI intact bilaterally Cognition: normal cognition Speech: speech normal Gait: normal gait Motor: muscle tone normal throughout, strength 5/5 throughout (exam limited secondary to right humeral fx but no deficit noted in hand), no movement abnormalities noted and no fasciculations Sensory Exam: no sensory deficits noted Coordination: cshrcv-ln-qbhf test normal and vlwh-jq-ydvt test normal Extrem General: normal to inspection, capillary refill normal, no pedal edema and no calf tenderness Psych Appearance: grossly normal and well kempt Mental Status: mental status grossly normal Speech and Movement: speech and movement normal Course Vital Signs Vital signs: Vital Signs Temperature 36.6 C 12/23/21 10:33 Pulse 69 12/23/21 10:33 Respiratory Rate 18 12/23/21 10:33 Blood Pressure 121/70 12/23/21 10:33 Pulse Oximetry 95 12/23/21 10:33 Temperature 36.6 C 12/23/21 10:33 Temperature Source Temporal Artery Scan 12/23/21 10:33 Pulse 69 12/23/21 10:33 Respiratory Rate 18 12/23/21 10:33 Respiratory Effort Non-Labored 12/23/21 10:38 Blood Pressure 121/70 12/23/21 10:33 Blood Pressure Position Sitting 12/23/21 10:33 Pulse Oximetry 95 12/23/21 10:33 Oxygen Delivery Method Room Air 12/23/21 10:33 Oxygen Flow Rate 0 12/23/21 10:33
[2021-12-23] MEDS: Ondansetron O.D.T. 4 MG TABEF PO (11:25)
[2021-12-23 11:41] LABS: Abs Immature Grans 0.04 10^3/uL (0.0-0.06); Absolute Basophil Count 0.02 10^3/uL (0.0-0.2); Absolute Eosinophil Count 0.07 10^3/uL (0.0-0.7); Absolute Lymphocyte Count 0.98 10^3/uL (1.2-3.4); Absolute Monocyte Count 0.83 10^3/uL (0.1-0.8); Absolute Neutrophil Count 5.37 10^3/uL (1.2-6.7); Basophils % 0.3; HCT 41.4 % (36.0-46.0); HGB 13.7 g/dL (11.2-15.7); Immature Grans % 0.5; Lymphocytes % 13.4; MCH 31.2 pg (27.0-33.0); MCHC 33.1 % (32.0-36.0); MCV 94 fL (80-95); MPV 9.9 fL (8.0-11.0); Monocytes % 11.4; Neutrophils % 73.4; Platelet Count 160 10^3/uL (130-400); RBC 4.39 10^6/uL (3.93-5.22); RDW 13.5 % (11.7-14.6); RDW-SD 46.5 fL; WBC 7.31 10^3/uL (4.4-10.8)
[2021-12-23 11:57] LABS: ALT 50 U/L (14-59); AST 23 U/L (15-37); Albumin 3.3 g/dL (3.4-5.0); Alkaline Phosphatase 97 U/L (46-116); Anion Gap 10.2 mmol/L (3-11); BUN 12 mg/dL (7-18); Bilirubin, Total 0.3 mg/dL (0.2-1.0); CO2 25.8 mmol/L (21.0-32.0); CREATININE 0.7 mg/dL (0.55-1.02); Calcium 8.5 mg/dL (8.5-10.1); Chloride 106 mmol/L (98-107); Glucose 93 mg/dL (74-106); Potassium 3.9 mmol/L (3.5-5.1); Sodium 142 mmol/L (136-145); Total Protein 6.9 g/dL (6.4-8.2)
== END 2021-12-23 14:30 | disposition home or self-care (01) ==
PROVIDERS: Emergency Provider Physician Assistant; PCP Family Medicine
DX: S06.0X9A Concussion with loss of consciousness of unspecified duration, initial encounter (principal); S40.011A Contusion of right shoulder, initial encounter; M79.89 Other specified soft tissue disorders; J45.909 Unspecified asthma, uncomplicated; Z79.51 Long term (current) use of inhaled steroids; Z87.891 Personal history of nicotine dependence; W01.0XXA Fall on same level from slipping, tripping and stumbling without subsequent striking against object, initial encounter; Y93.01 Activity, walking, marching and hiking
CPT/HCPCS: 80053; 99284; 70450; 72125; 85025

== ENCOUNTER 2021-12-26 12:15 | Outpatient (CLI) | payer MEDICARE, SELFPAY ==
--- NOTE | 2021-12-26 11:15 | DI.RAD_ITS ---
Exam(s) XR SHOULDER RT COMPLETE 2+V EXAM: XR SHOULDER RT COMPLETE 2+V CLINICAL HISTORY: R PROXIMAL HUMERUS FRACTURE. TECHNIQUE: 2D digital imaging was performed. COMPARISON: CR LEFT SHOULDER COMPLETE from 05/07/2016 DX CR GABE RE from 12/14/2021 FINDINGS: Two views On the frontal view there is a 3 millimeter calcific density medially adjacent to the greater tuberos ity consistent with calcific insertional tendinitis of the rotator cuff. Subacromial space is mildly diminished. No osteophytes evident on the frontal view. On the outlet view there is slight cortica l irregularity noted. Recommend additional views to rule out subtle fracture of the humeral head. IMPRESSION: DATA REPOSITORY: RADIATION DOSE DELIVERED:
--- NOTE | 2021-12-26 11:30 | DI.RAD_ITS ---
Exam(s) XR KNEE RT 3V AP,LAT,HERLINDA EXAM: XR KNEE RT 3V AP,LAT,HERLINDA CLINICAL HISTORY: right knee injury. TECHNIQUE: 2D digital imaging was performed. COMPARISON: CR LEFT KNEE 4+ VIEWS from 06/25/2012 FINDINGS: 3 views Satisfactory position alignment of the components of prosthesis. No fracture nor loosening evident. IMPRESSION: DATA REPOSITORY: RADIATION DOSE DELIVERED:
== END 2021-12-26 12:16 | disposition home or self-care (01) ==
LOC: DIORS 12:16
PROVIDERS: PCP Family Medicine; Referring Provider Family Medicine; Visit Provider Physician Assistant
DX: S42.201A Unspecified fracture of upper end of right humerus, initial encounter for closed fracture (principal); Z96.651 Presence of right artificial knee joint; W19.XXXA Unspecified fall, initial encounter; Z98.890 Other specified postprocedural states; S80.01XA Contusion of right knee, initial encounter
CPT/HCPCS: 73562; 99215; 73030

== ENCOUNTER 2022-01-22 15:35 | Outpatient (CLI) | payer MEDICARE, SELFPAY ==
--- NOTE | 2022-01-22 15:00 | DI.RAD_ITS ---
Exam(s) XR SHOULDER RT COMPLETE 2+V EXAM: XR SHOULDER RT COMPLETE 2+V CLINICAL HISTORY: RIGHT PROXIMALHUMERUS FX F/U. TECHNIQUE: 2D digital imaging was performed of the right shoulder. Three images were obtained. AP, Y-view and axillary views were obtained. COMPARISON: DX CR SCHOUDER RE from 12/14/2021 CR XR SHOULDER RT COMPLETE 2+V from 12/26/2021 FINDINGS: BONES: There has been no change in the alignment of the proximal humeral fracture. There is some alex amina formation about the fracture site laterally consistent with some interval healing. No new fractu res identified. No bony destructive lesion is seen. JOINTS: No dislocation present. Mild degenerative changes are seen in the acromioclavicular joint. SOFT TISSUE: Normal. IMPRESSION: Stable proximal right humeral fracture. DATA REPOSITORY: RADIATION DOSE DELIVERED:
== END 2022-01-22 15:36 | disposition home or self-care (01) ==
LOC: DIORS 15:35
PROVIDERS: PCP Family Medicine; Visit Provider Student in an Organized Health Care Education/Training Program
DX: S42.201A Unspecified fracture of upper end of right humerus, initial encounter for closed fracture (principal); S46.011A Strain of muscle(s) and tendon(s) of the rotator cuff of right shoulder, initial encounter; X58.XXXA Exposure to other specified factors, initial encounter
CPT/HCPCS: 99214; 73030

== ENCOUNTER 2022-01-23 12:28 | Outpatient (REF) | payer MEDICARE, SELFPAY ==
[2022-01-23 15:05] LABS: ALT 31 U/L (14-59); AST 22 U/L (15-37); Albumin 3.9 g/dL (3.4-5.0); Alkaline Phosphatase 103 U/L (46-116); Bilirubin, Direct 0.1 mg/dL (0.0-0.2); Bilirubin, Total 0.5 mg/dL (0.2-1.0)
[2022-01-23 15:24] LABS: Calculated LDL 128 mg/dL (<100); Cholesterol 214 mg/dL (<200); HDL Cholesterol 70 mg/dL (40-60); Triglyceride 84 mg/dL (<150)
== END 2022-01-23 12:29 | disposition home or self-care (01) ==
LOC: NCHCN 12:28
PROVIDERS: PCP Family Medicine; Visit Provider Family Medicine
DX: E78.5 Hyperlipidemia, unspecified (principal)
CPT/HCPCS: 80061; 80076

== ENCOUNTER → 2022-02-13 03:37 | Outpatient (CLI) | payer MEDICARE, SELFPAY ==
--- NOTE | 2022-02-13 09:48 | DI.MAMMO_ITS ---
Exam(s) MG MAMMO DIAGNOSTIC UNI US BREAST LT LIMITED EXAM: MAMMO DIAGNOSTIC UNI and U/S breast LT limited CLINICAL HISTORY: 6-MO F/U LT BREAST CYST, N60.09. TECHNIQUE: Craniocaudal and mediolateral oblique Full Field Digital Mammography views of the left br east with Computer Aided Diagnosis followed by Tomosynthesis and left breast ultrasound. COMPARISON: Comparison is made with prior examinations. FINDINGS: Mammography/Tomosynthesis: Masses/Architectural Distortion: The nodule seen in the central posterior left breast are unchanged. No suspicious areas of architectural distortion are seen. Microcalcifictions: No suspicious pleomorphic-type are seen. Skin Thickening/Nipple Retraction: None. Limited left breast US: Echotexture: Normal appearance of the glandular tissue. Shadowing: No suspicious foci. Cyst: Stable cyst is seen. Solid lesions: Stable intraparenchymal lymph node at the 4 o'clock position is seen. Ductal dilation: None. IMPRESSION: 1. No evidence of malignancy is noted. 2. A six-month follow-up left mammogram and ultrasound are requested for re-evaluation. 3. The findings were discussed with the patient on the date of the examination. BI-RADS Category 3 - 6 month - Probably Benign Finding: Recommend follow-up imaging in 6 months Breast Density - Category B - Scattered areas of fibroglandular density Breast density Category C or D implies that the patient has dense breast tissue. Dense breast tissue can make it harder to find cancer on a mammogram. Dense breast tissue is also associated with an incr eased risk of breast cancer. This information about the result of the mammogram report was provided to the patient to raise their awareness. Use this report when you speak with the patient about their risks for breast cancer, which includes their family history. At that time, you may recommend additional screening tests (Ultrasoun d or MRI) as these tests may add significant information. A negative radiographic report should not delay biopsy if a dominant or clinically suspicious mass is present. Up to ten percent of cancers are not identified on mammography. A negative report may reinforce clinical impression. Adenosis and dense breasts may obscure an underlying neoplasm. False positive reports average 6 to 10%. Patient will receive a letter notifying them of these results.
== END ==
PROVIDERS: PCP Family Medicine; Visit Provider Family Medicine
DX: R92.8 Other abnormal and inconclusive findings on diagnostic imaging of breast (principal); Z12.31 Encounter for screening mammogram for malignant neoplasm of breast
CPT/HCPCS: 76642; 77061; 77065; G0279

== ENCOUNTER 2022-03-05 14:13 | Outpatient (CLI) | payer MEDICARE, SELFPAY ==
--- NOTE | 2022-03-05 13:00 | DI.RAD_ITS ---
Exam(s) XR SHOULDER RT COMPLETE 2+V EXAM: XR SHOULDER RT COMPLETE 2+V CLINICAL HISTORY: right rotator cuff f/u. TECHNIQUE: 2D digital imaging was performed. COMPARISON: CR XR SHOULDER RT COMPLETE 2+V from 12/26/2021 CR XR SHOULDER RT COMPLETE 2+V from 01/22/2022 FINDINGS: Two views: Again noted is a healing fracture of the humeral head without significant displacement and no disloca tion glenohumeral joint. There is a calcific density seen posteriorly adjacent to the humeral head. This may represent small fragment which was also evident on previous images. Glenohumeral joint is otherwise unremarkable. IMPRESSION: Healing fracture as described above. DATA REPOSITORY: RADIATION DOSE DELIVERED:
== END 2022-03-05 14:14 | disposition home or self-care (01) ==
LOC: DIORS 14:14
PROVIDERS: PCP Family Medicine; Referring Provider Family Medicine; Visit Provider Student in an Organized Health Care Education/Training Program
DX: S46.011D Strain of muscle(s) and tendon(s) of the rotator cuff of right shoulder, subsequent encounter (principal); X58.XXXD Exposure to other specified factors, subsequent encounter; S42.201D Unspecified fracture of upper end of right humerus, subsequent encounter for fracture with routine healing
CPT/HCPCS: 99214; 73030

== ENCOUNTER 2022-03-20 10:50 | Emergency (ER) | payer MEDICARE, SELFPAY ==
[2022-03-20] VITALS (35 sets, daily range): BP systolic 108–130; BP diastolic 46–84; PULSE 57–71; RESP 18–19; TEMP 36.6–36.7; O2SAT 95–99
--- NOTE | 2022-03-20 11:04 | ED.GENADUL_ITS ---
Discharge Plan Disposition Patient Disposition: HOME Discharge Details Clinical Impression: Abdominal pain Primary Care Provider: Faith Fink ED Provider: Elijah Yen [place] Meds and New Rx's Prescriptions: New sucralfate 1 gram tablet 1 g PO QACHS Qty: 60 0RF No Action krill oil 500 mg capsule 500 mg PO DAILY atorvastatin 10 mg tablet 10 mg PO DAILY diphenhydramine HCl [Allergy (diphenhydramine)] 25 mg tablet 25 mg PO Q6H PRN fluoxetine [Prozac] 10 mg capsule 20 mg PO DAILY meloxicam 7.5 mg tablet 7.5 mg PO BID calcium carbonate 500 mg calcium (1,250 mg) tablet 1,250 mg PO DAILY wgupklidlc-ooirxkdhybpzg-fkkp 50-325-40 mg capsule 1 - 2 cap PO DAILY PRN trazodone 150 mg tablet 75 mg PO QHS PRN omeprazole 40 mg capsule,delayed release(DR/EC) 40 mg PO DAILY PRN magnesium 500 mg tablet 500 mg PO DAILY gabapentin 100 mg capsule 400 mg PO QHS acetaminophen 500 mg capsule 500 mg PO DIRECTED PRN fluticasone propionate [Flovent HFA] 220 mcg/actuation HFA aerosol inhaler 2 puff inhalation BID albuterol sulfate [Proventil HFA] 90 mcg/actuation HFA aerosol inhaler 2 puff inhalation Q4H PRN cholecalciferol (vitamin D3) [Vitamin D3] 25 mcg (1,000 unit) tablet 2,000 unit PO DIRECTED PreserVision AREDS 14,320-226-200 cmsw-nm-mowd capsule 1 cap PO DAILY ondansetron 4 mg tablet,disintegrating 4 mg PO Q6H PRN (Reason: nausea and vomiting) Qty: 10 0RF promethazine 12.5 mg Tablet 12.5 mg PO TID PRN Discharge Instructions Instructions: Abdominal Pain (ED) Additional Instructions: You were seen in the ED for left upper quadrant abdominal pain with associated nausea and episodes of vomiting and diarrhea. Your vital signs and exam are reassuring. Your laboratory studies are also reassuring. CT scan showed only postoperative changes but no acute abdominal process. Your pain improved with fluids, antiemetic, proton pump inhibitor. You should continue taking your omeprazole. I have sent prescription for sucralfate which you should start. Would stick with a bland diet over the weekend and follow-up with GI on Thursday as planned. Return to ED for fever, persistent vomiting, new or worsening pain, bloody diarrhea, other concerns. Medical Decision Making Patient presents to ED with left upper quadrant abdominal pain, which has been present since last night, more frequent this last week and initially started less frequently about a month and a half ago. Her abdomen is benign to my exam with minimal tenderness in the left upper quadrant. IV established and fluids started. IV Zofran and pantoprazole ordered. Laboratory studies, EKG, CT scan will be obtained. Patient laboratory studies with normal white count and hemoglobin. Chemistries and kidney function are normal. Liver function, lipase, troponin are all negative. Urinalysis without evidence of infection. EKG without any acute changes. Symptoms greatly improved with medications and fluid. CT scan completed and read by radiology as no acute abdominal pelvic pathology. Patient has follow-up with her GI specialist next week. I will have her continue her omeprazole 20 mg twice daily. I will add sucralfate short-term until she can follow-up. Suspect pain is acid related given the left upper quadrant symptoms though diarrhea not really consistent with that. Patient given return precautions. Lab Data Lab results reviewed: Yes I reviewed the patient's lab results. ECG Data Attestation: I personally reviewed and interpreted this ECG (s) as follows: Interpretation: See EKG HPI General Mode of arrival: ambulatory . Date/Time Provider Initiated Documentation: 03/20/22 11:04 . Limitations to Documentation: no limitations . Information obtained by: patient . HPI Narrative: Patient presents to ED with left upper quadrant abdominal pain which she has had on and off for about a month month and a half. She has episodes of this pain with associated nausea and diarrhea. Typically after diarrhea she seems better. This week she has had more frequent episodes and since last night has had constant left upper quadrant abdominal pain that radiates to her back. She has previous history of bowel resection, Zabrina fundoplication, peptic ulcer disease. She has intermittently been taking omeprazole. She denies having chest pain or shortness of breath. She denies hematemesis or hematochezia. She denies fever or URI symptoms. Diarrhea when she has it is watery but she also has episodes of normal bowel movements. Pain will not resolve this morning so she came in for ED. Related Data Home Medications Medication Instructions Recorded Confirmed acetaminophen 500 mg capsule 500 mg PO DIRECTED PRN 06/18/21 03/20/22 albuterol sulfate 90 mcg/actuation 2 puff inhalation Q4H PRN 06/18/21 03/20/22 aerosol inhaler (Proventil HFA) erwufropyi-liekpwbyjgguk-czaidflx 1 - 2 cap PO DAILY PRN 06/18/21 03/20/22 50 mg-325 mg-40 mg capsule calcium carbonate 500 mg calcium 1,250 mg PO DAILY 06/18/21 03/20/22 (1,250 mg) tablet cholecalciferol (vitamin D3) 25 2,000 unit PO DIRECTED 06/18/21 03/20/22 mcg (1,000 unit) tablet (Vitamin D3) fluticasone propionate 220 2 puff inhalation BID 06/18/21 03/20/22 mcg/actuation HFA aerosol inhaler (Flovent HFA) gabapentin 100 mg capsule 400 mg PO QHS 06/18/21 03/20/22 magnesium 500 mg tablet 500 mg PO DAILY 06/18/21 03/20/22 meloxicam 7.5 mg tablet 7.5 mg PO BID 06/18/21 03/20/22 omeprazole 40 mg capsule,delayed 40 mg PO DAILY PRN 06/18/21 03/20/22 release trazodone 150 mg tablet 75 mg PO QHS PRN 06/18/21 03/20/22 vitamins A,C,G-vlcp-wasrsy 14,320 1 cap PO DAILY 06/18/21 03/20/22 unit-226 mg-200 unit capsule (PreserVision AREDS) atorvastatin 10 mg tablet 10 mg PO DAILY 08/14/21 03/20/22 diphenhydramine HCl 25 mg tablet 25 mg PO Q6H PRN 08/14/21 03/20/22 (Allergy (diphenhydramine)) krill oil 500 mg capsule 500 mg PO DAILY 08/14/21 03/20/22 ondansetron 4 mg disintegrating 4 mg PO Q6H PRN nausea and 12/23/21 03/20/22 tablet vomiting #10 tabs fluoxetine 10 mg capsule (Prozac) 20 mg PO DAILY 03/05/22 03/20/22 promethazine 12.5 mg tablet 12.5 mg PO TID PRN 03/20/22 03/20/22 sucralfate 1 gram tablet 1 g PO QACHS #60 tabs 03/20/22 Previous Rx's Medication Instructions Recorded ondansetron 4 mg disintegrating 4 mg PO Q6H PRN nausea and 12/23/21 tablet vomiting #10 tabs sucralfate 1 gram tablet 1 g PO QACHS #60 tabs 03/20/22 Allergies Allergy/AdvReac Type Severity Reaction Status Date / Time codeine Allergy Mild Itching Unverified 03/20/22 14:17 hydromorphone Allergy Mild PRURITIS Unverified 03/20/22 14:17 morphine Allergy Mild PRURITIS Unverified 03/20/22 14:17 oxycodone Allergy Mild ITCH Unverified 03/20/22 14:17 topiramate AdvReac Nausea Unverified 03/20/22 14:17 verapamil AdvReac HYPOTENSION Unverified 03/20/22 14:17 General Stated Complaint: Abd Prob SERENA: 3 Review of Systems Narrative: 02/28 Review of Systems completed and is negative except as stated above in HPI (Systems reviewed: Const, Eyes, ENT, Resp, CV, GI, , MSK, Skin, Neuro) PFSH All Active Problems (Updated 03/20/22 @ 14:29 by Elijah Yen MD) Abdominal pain (Acute) Shoulder pain, left (Acute) Traumatic tear of right rotator cuff (Acute) Contusion of right knee (Acute) Closed fracture of right proximal humerus (Acute 12/14/21) Deviated nasal septum (Acute) Tonsillolith (Acute) Sensorineural hearing loss, bilateral (Acute) Pulsatile tinnitus, left ear (Acute) GERD (gastroesophageal reflux disease) (Chronic) Macular degeneration (Acute) Back pain, chronic (Acute) Knee pain, left (Acute) Shoulder pain, right (Acute) Osteoarthritis (Chronic) IBS (irritable bowel syndrome) (Chronic) Fibromyalgia (Acute) Depression (Chronic) Joint pain (Acute) Dry eyes (Acute) Insomnia (Acute) Complex cyst of uterine adnexa (Acute) Pulmonary nodule (Acute) Hearing loss (Acute) Diverticulitis (Acute 07/26/13) Status post sigmoid resection (Acute 07/26/13) Lap. Hand assisted sigmoid resection with colorectal anastomosis done by Dr. Jonathan Nguyen. Medical History Asthma Breast cyst Deep venous thrombosis of lower extremity (~1975) Hx of abnormal cervical Papanicolaou smear Hyperlipemia Migraine Temporal arteritis Tubular adenoma of colon Surgical History Fracture, Closed Treatment FEMUR; DR. ESQUEDA H/O right wrist surgery H/O shoulder surgery History of bilateral tubal ligation History of bowel resection History of knee replacement procedure of right knee History of Zabrina fundoplication Hx of abdominal surgery Spinal Fusion (~06/2002) Family History Mother Essential hypertension Personal history of malignant neoplasm BREAST Hyperlipidemia Father Diabetes Heart disease Sister Diabetes Brother Diabetes Essential hypertension Personal history of malignant neoplasm COLON Hyperlipidemia Grandfather No problems noted. Grandfather No problems noted. Grandmother No problems noted. Grandmother No problems noted. Brother Alcohol abuse Personal history of malignant neoplasm LIVER Depression Obesity Brother No problems noted. Brother Diabetes Essential hypertension Heart disease Hyperlipidemia Brother Essential hypertension Heart disease Hyperlipidemia Myocardial infarction Brother Essential hypertension Depression Hyperlipidemia Sister Diabetes Essential hypertension Depression Hyperlipidemia Obesity Sister Benign neoplasm of brain Diabetes Essential hypertension Depression Hyperlipidemia Hypothyroidism Sister Diabetes Essential hypertension Depression Hyperlipidemia Sister Diabetes Essential hypertension Depression Hyperlipidemia Obesity Sister Diabetes Essential hypertension Hyperlipidemia Son Asthma Son No problems noted. Son Depression Asthma Social History Smoking/Tobacco Use Status: Former Tobacco Use Quit Date: 05/18/75 Smoking risk assessment performed?: Yes Alcohol Intake: current Alcohol Intake frequency: a few times a week Drug use: Never Substance use type: does not use Current gender identity: female What type of physical activity do you participate in: walking Duration: 15-30 minutes/day Frequency: 5-6 times per week Do you feel safe at home: Yes Do you feel safe in your relationship?: Yes Exam Narrative Exam Narrative: Const: WDWN female in NAD. HEENT: NC/AT. Normal facial exam. Eyes: Normal conjunctiva and sclera. Neck: Supple. Trachea midline. Lungs: Normal respiratory effort. Lungs are clear. Cor: RRR without murmur/gallop. Good radial pulses. GI: Soft. NT/ND. No guarding or rebound. Neuro: A+O x 3. Normal speech, mentation, gait. Cranial nerves II - XII grossly intact. No gross motor or sensory deficit. Ext: No C/C/E. Skin: Warm and dry without rash. Course Vital Signs Vital signs: Vital Signs Temperature 98 F 03/20/22 10:57 Pulse 71 03/20/22 10:57 Respiratory Rate 18 03/20/22 10:57 Blood Pressure 121/57 L 03/20/22 10:57 Pulse Oximetry 98 03/20/22 10:57 Temperature 98 F 03/20/22 10:57 Temperature Source Temporal Artery Scan 03/20/22 10:57 Pulse 71 03/20/22 10:57 Respiratory Rate 18 03/20/22 10:57 Blood Pressure 121/57 L 03/20/22 10:57 Blood Pressure Position Sitting 03/20/22 10:57 Pulse Oximetry 98 03/20/22 10:57 Oxygen Delivery Method Room Air 03/20/22 10:57 Oxygen Flow Rate 0 03/20/22 10:57
--- NOTE | 2022-03-20 11:30 | DI.CT_ITS ---
Exam(s) CT ABDOMEN PELVIS W EXAM: CT ABDOMEN PELVIS W INDICATION: LUQ pain. COMPARISON: CT CT ANGIO CHEST from 04/10/2021 TECHNIQUE: FINDINGS: CT examination of the abdomen and pelvis was performed with intravenous infusion of 100 cc of Omnipaq ue 350. Images obtained through the lung bases are unremarkable. The liver is unremarkable in appearance. Gallbladder and bile ducts are CT normal. Pancreas appears normal. Spleen is unremarkable in appearance. Adrenals appear normal. The kidneys are unremarkable with no evidence of hydronephrosis, nephrolithiasis, or renal mass.. Ur inary bladder unremarkable. Abdominal aorta is of normal diameter and no major vascular abnormality is seen. No abdominal wall hernia. No abdominal or pelvic adenopathy. EXPLORATION DRILLER structures appear unremarkable for age. Appendix is normal. Multiple prior bowel surgeries and esophageal hiatus surgery noted. No evidence of diverticulitis or bowel obstruction. IMPRESSION: No evidence of acute process. RADIATION DOSE DELIVERED: 1,095.21mGy.cm Total DLP 1,095.21mGy.cm Total DLP !Error CTDIvol RADIATION OPTIMIZATION: All CT scans at this facility use at least one of these dose optimization te chniques: automated exposure control; mA and/or kV adjustment per patient size (includes targeted exa ms where dose is matched to clinical indication); or iterative reconstruction.
[2022-03-20] MEDS: Normal Saline 1,000 ML 1000 ML IV (12:10)
[2022-03-20 12:11] LABS: Abs Immature Grans 0.03 10^3/uL (0.0-0.06); Absolute Basophil Count 0.03 10^3/uL (0.0-0.2); Absolute Eosinophil Count 0.11 10^3/uL (0.0-0.7); Absolute Lymphocyte Count 0.97 10^3/uL (1.2-3.4); Absolute Monocyte Count 0.61 10^3/uL (0.1-0.8); Absolute Neutrophil Count 7.18 10^3/uL (1.2-6.7); Basophils % 0.3; Eosinophils % 1.2; HCT 45.1 % (36.0-46.0); HGB 14.6 g/dL (11.2-15.7); Immature Grans % 0.3; Lymphocytes % 10.9; MCH 30.9 pg (27.0-33.0); MCHC 32.4 % (32.0-36.0); MCV 96 fL (80-95); MPV 10.2 fL (8.0-11.0); Monocytes % 6.8; Neutrophils % 80.5; Platelet Count 179 10^3/uL (130-400); RBC 4.72 10^6/uL (3.93-5.22); RDW 12.8 % (11.7-14.6); RDW-SD 45.9 fL; WBC 8.93 10^3/uL (4.4-10.8)
[2022-03-20] MEDS: Ondansetron 4 MG/2 ML VIAL IVP (12:12)
[2022-03-20] MEDS: Normal Saline Flush 10 ML SYR IVP (12:14)
[2022-03-20] MEDS: Pantoprazole 40 MG VIAL IVP (12:14)
[2022-03-20 12:29] LABS: ALT 28 U/L (14-59); AST 21 U/L (15-37); Albumin 3.8 g/dL (3.4-5.0); Alkaline Phosphatase 99 U/L (46-116); BUN 15 mg/dL (7-18); Bilirubin, Total 0.4 mg/dL (0.2-1.0); CREATININE 0.8 mg/dL (0.55-1.02); Chloride 107 mmol/L (98-107); Estimated GFR 76.31 (mL/min/1.73m2); Glucose 111 mg/dL (74-106); Lipase 85 U/L (73-393); Potassium 3.6 mmol/L (3.5-5.1); Sodium 143 mmol/L (136-145); Total Protein 7.3 g/dL (6.4-8.2); Troponin I < 50 ng/L (<or=60)
--- NOTE | 2022-03-20 12:30 | RT.EKG_ITS ---
APPROVED REPORT Exam: Resting ECG Reason for Exam: LUQ abdominal pain Patient Location: E HR:60 bpm ECG Measurements Heart Rate 60 AXIS KS 197 P 74 QRSd 72 QRS 9 QT 410 T 24 QTc 411 Conclusion Sinus rhythm...normal P axis, V-rate 60- 99 There are no significant changes compared to prior EKG performed on 05/04/2020 at 16:35.
[2022-03-20 12:48] LABS: Bilirubin Negative (Negative); Blood Trace-intact (Negative); Clarity Clear (Clear); Glucose Negative (Negative); Ketones Negative (Negative); Leukocyte Esterase Negative (Negative); Nitrite Negative (Negative); Specific Gravity >= 1.030 (1.005-1.025); Urobilinogen 0.2 EU/dL (Up TO 0.2)
[2022-03-20 12:58] LABS: Bacteria Rare HPF (Negative); C & S Indicated? No; Casts Negative LPF (Negative); Crystals Negative HPF (Negative); Epithelial Cells Moderate HPF (Negative); Mucus Moderate (Negative); WBC 0-2 HPF (0-5)
== END 2022-03-20 15:37 | disposition home or self-care (01) ==
PROVIDERS: Emergency Provider Emergency Medicine; PCP Family Medicine
DX: R10.12 Left upper quadrant pain (principal)
CPT/HCPCS: 36415; 80053; 83690; 93005; 96361; 96374; 96375; 99285; 74177; 81003; 81015; 83735; 84484; 85025; 93010; 99284; J2405

== ENCOUNTER → 2022-03-27 02:43 | Outpatient (CLI) | payer MEDICARE, SELFPAY ==
--- NOTE | 2022-03-27 07:30 | DI.MRI_ITS ---
Exam(s) MR UPPER JOINT RT WO EXAM: MR UPPER JOINT RT WO CLINICAL HISTORY: R SHOULDER PAIN,traumatic tear rt rotator cuff,closed fx rt prox humerus. TECHNIQUE: Multiplanar multisequence MRI was performed. COMPARISON: CR XR SHOULDER RT COMPLETE 2+V from 12/26/2021 CR XR SHOULDER RT COMPLETE 2+V from 03/05/[address] ABDOMEN PELVIS W from 03/20/2022 FINDINGS: BONES: There is edema seen in the healing proximal right humeral fracture. JOINTS: There are mild degenerative changes seen at the acromioclavicular joint. The glenohumeral shabbir int is normal. TENDONS: Supraspinatus: There is a full-thickness tear of the supraspinatus tendon. There is a gap of approxi mately 1 cm. Infraspinatus: Unremarkable. Subscapularis: There is tendinosis of the subscapularis tendon. Teres [place]: Unremarkable. Biceps and [place]: There is tendinosis of the long head of the biceps. MUSCLES: There is mild fatty atrophy of all 4 of the rotator cuff muscles. GLENOID LABRUM: Unremarkable on this noncontrast examination. SOFT TISSUES: Unremarkable. LIGAMENTS: Unremarkable. OTHER: There is a small amount of fluid in the subacromial subdeltoid bursa. IMPRESSION: 1. Full-thickness tear of the supraspinatus tendon. 2. Tendinosis of the subscapularis and long head of the biceps. 3. Healing fracture of the proximal humerus. 4. Mild fatty atrophy of the rotator cuff muscles. DATA REPOSITORY:
== END ==
PROVIDERS: PCP Family Medicine; Visit Provider Student in an Organized Health Care Education/Training Program
DX: S42.201D Unspecified fracture of upper end of right humerus, subsequent encounter for fracture with routine healing (principal); S46.011A Strain of muscle(s) and tendon(s) of the rotator cuff of right shoulder, initial encounter; M75.21 Bicipital tendinitis, right shoulder; X58.XXXA Exposure to other specified factors, initial encounter
CPT/HCPCS: 73221

== ENCOUNTER 2022-03-27 18:21 | Outpatient (REF) | payer MEDICARE, SELFPAY ==
[2022-04-02 19:24] LABS: Lactoferrin, Qt, Stool <6.25 mcg/mL (<7.25)
== END 2022-03-27 18:22 | disposition home or self-care (01) ==
LOC: LBN 18:21
PROVIDERS: PCP Family Medicine; Visit Provider Internal Medicine Gastroenterology
DX: R19.7 Diarrhea, unspecified (principal); R11.2 Nausea with vomiting, unspecified; R10.12 Left upper quadrant pain; R10.13 Epigastric pain
CPT/HCPCS: 83631; 87329; 87493; 87177; 87230

== ENCOUNTER 2022-03-28 16:46 | Outpatient (REF) | payer MEDICARE, SELFPAY | END 2022-03-28 16:47 | disposition home or self-care (01) | LOC: LBN 16:46 | PROVIDERS: PCP Family Medicine; Visit Provider Internal Medicine Gastroenterology | DX: R19.7 Diarrhea, unspecified (principal); R11.2 Nausea with vomiting, unspecified; R10.13 Epigastric pain; R10.12 Left upper quadrant pain | CPT/HCPCS: 87329; 87177 ==

== ENCOUNTER → 2022-04-01 13:33 | Outpatient (BNVA) | payer MEDICARE, SELFPAY | PROVIDERS: PCP Family Medicine; Referring Provider Family Medicine; Visit Provider Student in an Organized Health Care Education/Training Program | DX: W19.XXXA Unspecified fall, initial encounter (principal); S46.011A Strain of muscle(s) and tendon(s) of the rotator cuff of right shoulder, initial encounter; S42.201A Unspecified fracture of upper end of right humerus, initial encounter for closed fracture | CPT/HCPCS: 99214 ==

== ENCOUNTER 2022-05-22 09:01 | Day surgery (SDC) | payer MEDICARE, SELFPAY ==
[2022-05-22] VITALS (10 sets, daily range): BP systolic 107–137; BP diastolic 56–85; PULSE 50–65; RESP 10–16; TEMP 36–36.6; O2SAT 94–100; BMI 31.9
--- NOTE | 2022-05-22 07:59 | W.ANESPRE ---
General Info Date of Service Date Performed: 05/22/22 Height: 5 ft 6 in Weight: 89.8 kg Body Mass Index (BMI): 31.9 Surgical Procedure: Operation Date: 05/22/22 11:10 Proposed Procedure Side Surgeon p Shoulder Rotator Cuff Arthroscopic w/Extensive Debridement,Biceps Tenodesis,Subacromial Decompression Right Bakari Head MD Meds Allergies and Home Medications Allergies Allergy/AdvReac Type Severity Reaction Status Date / Time codeine Allergy Mild Itching Verified 05/22/22 09:12 hydromorphone Allergy Mild PRURITIS Verified 05/22/22 09:14 morphine Allergy Mild PRURITIS Verified 05/22/22 09:14 oxycodone Allergy Mild ITCH Verified 05/22/22 09:14 topiramate AdvReac Mild Nausea Verified 05/22/22 09:14 verapamil AdvReac HYPOTENSION Verified 05/22/22 09:14 Home Medication Medication Instructions Recorded acetaminophen 500 mg capsule 500 mg PO DIRECTED PRN 06/18/21 albuterol sulfate 90 mcg/actuation 2 puff inhalation Q4H PRN 06/18/21 aerosol inhaler (Proventil HFA) riitqmmpjr-wvrxhwmzykngh-abnopycw 1 - 2 cap PO DAILY PRN 06/18/21 50 mg-325 mg-40 mg capsule calcium carbonate 500 mg calcium 1,250 mg PO DAILY 06/18/21 (1,250 mg) tablet cholecalciferol (vitamin D3) 25 2,000 unit PO DIRECTED 06/18/21 mcg (1,000 unit) tablet (Vitamin D3) fluticasone propionate 220 2 puff inhalation BID PRN 06/18/21 mcg/actuation HFA aerosol inhaler (Flovent HFA) gabapentin 100 mg capsule 400 mg PO QHS 06/18/21 magnesium 500 mg tablet 500 mg PO DAILY 06/18/21 meloxicam 7.5 mg tablet 7.5 mg PO BID PRN 06/18/21 omeprazole 40 mg capsule,delayed 40 mg PO DAILY PRN 06/18/21 release trazodone 150 mg tablet 75 mg PO QHS PRN 06/18/21 vitamins A,C,X-uhen-ozmuwh 14,320 1 cap PO DAILY 06/18/21 unit-226 mg-200 unit capsule (PreserVision AREDS) atorvastatin 10 mg tablet 10 mg PO DAILY 08/14/21 diphenhydramine HCl 25 mg tablet 25 mg PO Q6H PRN 08/14/21 (Allergy (diphenhydramine)) krill oil 500 mg capsule 500 mg PO DAILY 08/14/21 ondansetron 4 mg disintegrating 4 mg PO Q6H PRN nausea and 12/23/21 tablet vomiting #10 tabs promethazine 12.5 mg tablet 12.5 mg PO TID PRN 03/20/22 sucralfate 1 gram tablet 1 g PO QACHS #60 tabs 03/20/22 tramadol 50 mg tablet 50 mg PO Q8H PRN severe pain #16 05/22/22 tabs Current Visit Medications: Current Medications Generic Name Dose Route Start Last Admin Trade Name Freq PRN Reason Stop Dose Admin Ringer's Solution 1,000 mls @ 30 mls/hr 05/22/22 06:00 IV 06/20/22 23:59 INFUSION TRUONG Cefazolin Sodium/Dextrose 2 gm in 50 mls @ 100 mls/hr 05/22/22 06:00 Ancef Duplex IVPB 06/20/22 23:59 PREOP TRUONG IV Miscellaneous Supplies 1 each 05/22/22 06:00 Iv Access IV 06/20/22 23:59 DIRECTED TRUONG Sodium Chloride 0 ml 05/22/22 06:00 Normal Saline Flush 10 Ml Syr IV 06/20/22 23:59 PRN PRN Sodium Chloride 0 ml 05/22/22 06:00 Normal Saline 10 Ml Vial IJ 06/20/22 23:59 DIRECTED PRN Sterile Water 0 ml 05/22/22 06:00 Water,Injection,Sterile 10 Ml Vial IJ 06/20/22 23:59 DIRECTED PRN Tramadol HCl 50 mg 05/22/22 07:18 Tramadol 50 Mg Tab PO Q6H PRN PRN PFSH Active Problems Active Problems: Problem Status Onset Code Shoulder pain, left M25.512 Traumatic tear of right rotator cuff S46.011A Contusion of right knee S80.01XA Closed fracture of right proximal humerus 12/14/21 S42.201A Deviated nasal septum J34.2 Tonsillolith J35.8 Sensorineural hearing loss, bilateral H90.3 Pulsatile tinnitus, left ear H93.A2 GERD (gastroesophageal reflux disease) K21.9 Macular degeneration H35.30 Back pain, chronic M54.9, G89.29 Knee pain, left M25.562 Shoulder pain, right M25.511 Osteoarthritis M19.90 IBS (irritable bowel syndrome) K58.9 Fibromyalgia M79.7 Depression F32.A Joint pain M25.50 Dry eyes H04.123 Insomnia G47.00 Complex cyst of uterine adnexa N83.8 Pulmonary nodule R91.1 Hearing loss H91.90 Diverticulitis 07/26/13 K57.92 Status post sigmoid resection 07/26/13 Medical History Medical History Asthma Breast cyst Deep venous thrombosis of lower extremity (~1975) Hx of abnormal cervical Papanicolaou smear Hyperlipemia Migraine Temporal arteritis Tubular adenoma of colon Surgical History Surgical History Fracture, Closed Treatment FEMUR; DR. ESQUEDA H/O right wrist surgery H/O shoulder surgery History of bilateral tubal ligation History of bowel resection History of knee replacement procedure of right knee History of Zabrina fundoplication Hx of abdominal surgery Spinal Fusion (~06/2002) Tobacco Smoking/Tobacco Use Status: Former Tobacco Use Alcohol Alcohol Intake: current Alcohol intake frequency: a few times a week Substance Use Substance use: Never Substance use type: does not use Vital Signs and Lab Results Vital Signs Comment Vital Signs Comment:: Temp Pulse Resp BP Pulse Ox 36.5 C 62 16 128/73 98 05/22/22 09:32 05/22/22 09:32 05/22/22 09:32 05/22/22 09:32 05/22/22 09:32 Lab Results Blood Type / Crossmatch: No Data to Display Complete Blood Count: No Data to Display Complete Metabolic Panel: No Data to Display Liver Function Panel: No Data to Display Coagulation Panel: No Data to Display Cardiac Panel: No Data to Display Arterial Blood Gas: No Data to Display Venous Blood Gas: No Data to Display Pancreas Panel: No Data to Display Thyroid Panel: No Data to Display Infectious Disease: No Data to Display Blood Cultures: No Data to Display Toxicology Panel: No Data to Display Imaging and Studies Imaging and Studies Study information below may be from another EMR and interpreted by another provider. Please see original notes in EMR for more complete details. EKG Summary: 03/20/2022: Exam: Resting ECG Reason for Exam: LUQ abdominal pain Patient Location: E HR:60 bpm ECG Measurements Heart Rate 60 AXIS WA 197 P 74 QRSd 72 QRS 9 QT 410 T24 QTc 411 Conclusion Sinus rhythm...normal P axis, V-rate 60- 99 There are no significant changes compared to prior EKG performed on 05/04/2020 at 16:35. I have reviewed and I agree with the emergency room physician's ECG interpretation. Electronically signed by: <Electronically signed by Azalea New M.D. in [place]> 03/20/22 1328 Carotid Artery Summary:: 03/13/2015: Exam(s) [id number] MRI:Brain WO [id number] US:Carotid SYMPTOMS/DIAGNOSIS: DECREASED VISION OF RIGHT EYE, VISION LOSS, RIGHT-SIDED HEADACHE, PARRA SPOT AND BLURRY VISION, H53.129, H53.10, H54.7, R51; H/O MIGRAINES CAROTID ULTRASOUND: Minimal calcific plaque is seen in the common carotid bulb. There is no visible stenosis. The velocity measurements obtained are within the normal range. Both vertebral arteries show antegrade flow. IMPRESSION: Minimal calcific plaque in the common carotid bulb. No evidence of significant internal carotid artery stenosis. MRI OF THE BRAIN: T2 sagittal, T1, T2, FLAIR, gradient-echo and diffusion axial images were performed. No intracranial hemorrhage, mass or infarct is seen. There are a few tiny high signal lesions in the white matter that likely represent the sequelae of microvascular disease. The ventricles are normal in size. The vascular flow voids appear intact. The orbits, sinuses and pituitary are unremarkable. IMPRESSION: Minimal white matter changes. No acute abnormality. Anesthesia Assessment and Plan Anesthesia History Personal History: No History of Anesthesia Complications Family History: No Family History of Anesthesia Complications Exercise Tolerance Exercise Tolerance: Metabolic Equivalents>4 Cardiac & Pulmonary Exam Cardiac Exam: Normal S1/S2 Heart Sounds Pulmonary Exam: Clear Bilateral Breath Sounds Implantable Cardiac Device Does patient have a Pacemaker or an ICD?: No Airway Exam Known Difficult Airway: No Mallampati Class: 1 Mouth Opening: Normal (> 3cm) Thyromental Distance: Greater than 3 cm Neck Range of Motion: Full ROM Neck Circumference: Normal Teeth Condition: Normal Dentition ASA Classification ASA Score: ASA 3 Emergency Case?: No NPO Status NPO Status: NPO Clears >2 hours, Solids >8 hours Anesthesia Plan Resuscitation Status: Full Code Anesthesia Technique: General Anesthesia Airway Planned: Endotracheal Tube Pain Management: Surgeon and patient request nerve block Monitors Used: Standard Monitors Preoperative Comments:: Reports no previous complications with anesthesia
[2022-05-22] MEDS: Lactated Ringers 1,000 ML 30 ML IV (10:05)
--- NOTE | 2022-05-22 11:00 | W.PM.OP ---
Date of service: 05/22/22 Time of Service: 11:00 Operative Note Operative Note DATE OF PROCEDURE: 05/22/22 PRE-OP DIAGNOSIS: Right: 1. Rotator cuff tear 2. SLAP tear 3. Greater tuberosity malunion POST-OP DIAGNOSIS: same PROCEDURE: Right: 1. Rotator cuff repair, CPT# 21105. This involved repair of the supraspinatus using anchors and sutures to reattach the rotator cuff back to the footprint of the greater tuberosity. 2. Arthroscopic biceps tenodesis, CPT# 00992. This involved arthroscopically suturing and reattaching the long head of the biceps tendon to the proximal humerus at the superior margin of the bicipital groove with a screw at the correct tension. 3. Extensive debridement, CPT# 95855. This involved using arthroscopic hand instruments, power instruments, and radiofrequency instruments to release the long head of the biceps tendon and debride areas of labral tearing, SLAP tearing, release the anterior capsule and MGHL, debride synovitis, and smooth bone step off from the prior fracture with a tuberoplasty working within the glenohumeral joint anteriorly, superiorly and posteriorly. 4. Subacromial decompression, CPT# 68512. This involved using arthroscopic power instruments and a radiofrequency wand to complete a bursectomy. The behavioral health assistant was medically required in order to help assist in techniques above, which require positioning the arm, holding the arthroscope, and manipulating multiple instruments and sutures at the same time. This cannot be done without the help of an experienced behavioral health assistant. SURGEON: Bakari Head PIPE RACKER: Gillian Thayer ANESTHESIA TYPE: Local By Surgeon, General LMA/ETT and Primary Nerve Block Refer to Anesthesia Record ESTIMATED BLOOD LOSS: 10 PATHOLOGY: none sent COMPLICATIONS: None Patient was transported to: PACU Patient's condition: stable Implants: Arthrex: 4.75mm SwiveLocks x 1 and 5.5mm x 1 Indications: The patient was diagnosed with the above conditions and appropriately indicated for surgical intervention. Please see complete medical record for details. Findings: Exam under anesthesia: Moderately full range of motion. Mechanical glenohumeral crepitation with forward elevation abduction. No instability. Glenohumeral joint: Moderate bursitis. Significant degenerative anterior and posterior labral tearing. Unstable biceps anchor type SLAP tear. Intact subscapularis. Thickening and contracture of anterior capsule and [facility]. Largely torn, near?full-thickness supraspinatus rotator cuff tear. About 2 mm step-off greater tuberosity malunion, which involve the articular surface anteriorly and superiorly of the humeral head and obliquely traverse posteriorly away from from the joint. Subacromial space: Significant bursitis. Thin veil of bursal tissue hiding supraspinatus tear. Supraspinatus had limited tissue for repair. Thinned laterally and thickened, probably chronically torn medially retracted tissue. Separate split between the supraspinatus and infraspinatus more posteriorly. Greater tuberosity healed and stable. Procedure Description: In the operating room, general anesthesia was induced. Bilateral shoulders were examined. The patient was positioned in the beachchair position. All bony prominences were well-padded. Preoperative antibiotics were administered. The shoulder was prepped and draped in the usual sterile fashion. The correct patient, procedure, and side of the procedure were all verified prior to incision. Starting through the posterior portal a standard complete diagnostic arthroscopy was performed of the glenohumeral joint including inspection of the long head of the biceps, anterior and superior labrum, subscapularis tendon, supraspinatus and infraspinatus tendons, and axillary recess. The glenoid and humeral head cartilage as well as the posterior labrum were inspected from an anterior viewing portal. Significant findings and interventions noted above. The greater tuberosity articular step-off was smooth working through the posterior portal with the arthroscopic shaver. Next, an all-arthroscopic suprapectoral biceps tenodesis was performed through an anterior portal using a Loop N Tack method with a SutureTape FiberLink cinched around and through the tendon. The biceps was tenotomized from the labrum and fixated with a suture anchor at the superior margin of the bicipital groove. Starting through the posterior portal, the arthroscope was directed into the subacromial space. A MRI was inserted at both the anterior superior lateral and posterior superior lateral portals, which were created. A combination of power instruments and a radiofrequency ablator were used to debride bursitis anteriorly, posteriorly, and laterally as well as expose the rotator cuff tear, which was somewhat medial along the greater tuberosity with intact infraspinatus wrapping around posteriorly. The coracoacromial ligament was preserved. The bursectomy was completed viewing laterally and working from posteriorly and the rotator cuff was thoroughly inspected with findings noted above. The thin veil of bursal tissue about the supraspinatus tear was elevated and resected to a stable tissue margin. The tear was somewhat medial along the greater tuberosity. The supraspinatus was mobilized and debrided of chronic frayed and fibrinous tissue. It could be reapproximated reasonably well without undue tension to the medial about half of the greater tuberosity. There was a separate tear more posteriorly between the supraspinatus and probably infraspinatus, which may have reflected more of an L configuration than a crescent tear. The self retrieving suture passer was used to shuttle a FiberWire simple stitch with healthy tissue grabs through this posterior tear and secured with an [facility] arthroscopic knot with excellent tissue fixation and reduction of this tear. The remainder of the tear acted like a somewhat medial crescent tear with limited tissue, which was not unexpected given the probable chronicity of the tear and advanced patient age. The self retrieving suture passer was then used to shuttle a FiberTape inverted horizontal mattress again with healthy tissue grabs about the tear and a suture tape FiberLink placed in a ripstop configuration centrally in the tear. The optimal location on the greater tuberosity for tissue coverage healing without undue tension was localized. Provisional reduction checked through the rigid cannula. The undersized punch was again used given the soft bone and site of prior fracture for an oversized suture anchor which was loaded with the supraspinous repair sutures and successively deployed with appropriate tension. There was good fixation strength and rotator cuff repair. It was inspected through range of motion and stable. The shoulder was drained of arthroscopic fluid. All portal sites were copiously irrigated. These incisions were closed using 3-0 Monocryl in a buried fashion and then covered with Mastisol, Steri-Strips, Xeroform, dry gauze, and ABDs. The dressings were covered and secured with Medipore tape. The operative extremity was placed into a sling for immobilization. The patient awoke from anesthesia without complication and was transferred to the recovery room in a stable condition.
[2022-05-22] MEDS: ceFAZolin 2 GM/50 ML BAG IVPB (11:57)
--- NOTE | 2022-05-22 12:31 | W.ANESNERVE ---
Nerve Block Single Injection Procedure Date and Time Date Performed: 05/22/22 Procedure Start: 11:15 Location Where Procedure Performed Procedure Location: Day Surgery Unit Reason Performed: Postoperative Analgesia Requesting Provider: Bakari Head Timeout Performed Timeout Performed: Yes Monitoring Used ECG, Blood Pressure, SpO2 and See EMR for corresponding vital signs Sterility Sterility: Hand Hygiene, Surgical Cap, Surgical Mask, Sterile Gloves, Eye Protection and Chlorhexidine Sedation Given During Procedure Sedation Given (Indicate Dose Given): Versed IV (Administered in divided doses) Dose:: 2mg Patient Mental Status Patient Mental Status: Sedate with meaningful communication Nerve Block 1st Nerve Block: Laterality: Right Block Type: Interscalene Ultrasound Image Saved?: Yes Needle / Catheter Used: 80mm SonoPlex II Local Anesthetic Bolus (Indicate Dose Given): Lidocaine used for local infiltration of skin, Injected in 3-5ml increments after negative blood aspiration, Bupivacaine 0.5% Dose:: 15mL and Exparel Dose:: 10mL Additives (Indicate Dose Given): None Ultrasound: Sterile probe cover and gel used Nerve Stimulator: Not Used Paresthesia: None Procedure Tolerated: No Complications Procedure Outcome: Successful Procedure Comment: Patient's brachial plexus at the interscalene groove had aberrant vessel and blocked patient slighted distal to avoid, discused with patient. Color doppler was utilized prior to administration of block. Patient tolerated procedure well. Performed By: Claudia Rene
[2022-05-22] MEDS: EPINEPHrine 30 MG/30 ML VIAL (13:46)
[2022-05-22] MEDS: Bupivacaine 0.5% Pres-Free W/EPI 30 ML VIAL (13:47)
--- NOTE | 2022-05-22 13:54 | W.PM.DSUDISC ---
Date of service: 05/22/22 Time of Service: 15:00 Discharge Plan Disposition Patient Disposition: Home Discharge Details Attending Provider: Bakari Head Primary Care Provider: Faith Fink Home Meds and New Rx's Prescriptions: New tramadol 50 mg tablet 50 mg PO Q8H PRN (Reason: severe pain) Qty: 16 0RF Continued krill oil 500 mg capsule 500 mg PO DAILY atorvastatin 10 mg tablet 10 mg PO DAILY diphenhydramine HCl [Allergy (diphenhydramine)] 25 mg tablet 25 mg PO Q6H PRN meloxicam 7.5 mg tablet 7.5 mg PO BID PRN calcium carbonate 500 mg calcium (1,250 mg) tablet 1,250 mg PO DAILY vhntkcqash-mcevjuiwkigmw-btiv 50-325-40 mg capsule 1 - 2 cap PO DAILY PRN trazodone 150 mg tablet 75 mg PO QHS PRN omeprazole 40 mg capsule,delayed release(DR/EC) 40 mg PO DAILY PRN magnesium 500 mg tablet 500 mg PO DAILY gabapentin 100 mg capsule 400 mg PO QHS acetaminophen 500 mg capsule 500 mg PO DIRECTED PRN fluticasone propionate [Flovent HFA] 220 mcg/actuation HFA aerosol inhaler 2 puff inhalation BID PRN albuterol sulfate [Proventil HFA] 90 mcg/actuation HFA aerosol inhaler 2 puff inhalation Q4H PRN cholecalciferol (vitamin D3) [Vitamin D3] 25 mcg (1,000 unit) tablet 2,000 unit PO DIRECTED PreserVision AREDS [id number] guym-nm-ybql capsule 1 cap PO DAILY ondansetron 4 mg tablet,disintegrating 4 mg PO Q6H PRN (Reason: nausea and vomiting) Qty: 10 0RF promethazine 12.5 mg Tablet 12.5 mg PO TID PRN sucralfate 1 gram tablet 1 g PO QACHS Qty: 60 0RF Discharge Instructions Additional Instructions: Surgery: Right shoulder arthroscopy with rotator cuff repair, biceps tenodesis, extensive debridement, and subacromial decompression. Activity: For 6 weeks, you should keep your arm at your side in a neutral position at all times except for physical therapy. Do not try to lift or raise your arm using your own muscles. You should use the sling whenever you are out of the house. You may have to adjust the abduction pillow or remove it for comfort. At home it is best to remove the sling and rest the arm on a pillow at your side or support the operative side with your other hand. You may allow the arm to dangle at your side. A physical therapy prescription will be sent electronically to begin in about 3 weeks. Prescriptions: May resume meloxicam or Advil as needed for moderate pain and swelling Tramadol 50 mg take 1 every 6-8 hours as needed for severe pain You may use pwco-ltn-ldtkswl Tylenol (acetaminophen) as needed for mild pain. These pain medications may be taken all at once or in different combinations as needed. Also, recommend Colace (docusate) as a stool softener as surgery and pain medicine cause constipation. You may try hpte-fgb-cbawqnb diphenhydramine (Benadryl) 25-50 mg nightly as a sleep aid Dressings: Remove shoulder bandage after 3 days. Leave the sticky Steri-Strips in place until they fall off or remove them after you shower. Cover the incisions with Band-Aids or leave them open to air. You may shower after 5 days. Follow-up: 10-[address] Head You may take off the leg compression stockings this evening at home. You may also leave them on a few days longer if you have a history of leg swelling or edema. Let us know right away if you develop any redness, drainage, fevers, chest pain, or trouble breathing. Do not drink alcohol or drive for at least 24 hours after anesthesia. Please call the office during business hours with any questions or concerns. Discharge Orders Discharge Orders: Discharge Order (Routine); Ordered 05/22/22 Ordered By: Bakari Head DS: Diagnosis Discharge Diagnosis (1) Traumatic tear of right rotator cuff: Status: Acute (2) Closed fracture of right proximal humerus: Status: Acute
[2022-05-22] MEDS: fentaNYL 100 MCG/2 ML VIAL IVP ×2 (14:26→14:33)
[2022-05-22] MEDS: Normal Saline 10 ML VIAL IJ (15:01)
[2022-05-22] MEDS: HYDROmorphone 2 MG/ML SYR IVP (15:01)
--- NOTE | 2022-05-22 16:37 | W.ANESPOSTOP ---
Postoperative Evaluation Date, Time and Location Date Performed: 05/22/22 Time Performed: 14:50 Patient Location: Day Surgery Unit Vital Signs Most Recent Imported Vital Signs: Most Recent Vital Signs Temp Pulse Resp BP Pulse Ox 36.3 C L 53 L 16 112/68 98 05/22/22 15:46 05/22/22 15:46 05/22/22 15:46 05/22/22 15:46 05/22/22 15:46 Pain Score Most Recent Pain Score: Most Recent Pain Score Pain Level 5 05/22/22 15:46 Assessment Mental Status: Awake (Alert & Oriented to Patient Baseline) Airway and Respiratory Function: Patent airway with normal (patient baseline) respiratory exam Cardiovascular Function: Hemodynamically Stable Hydration Status: Adequately Hydrated Nausea & Vomiting: No Nausea or Vomiting Pain: Pain is tolerable per patient Peripheral Nerve Block: Regional nerve block not resolved at time of post operative discharge (Patient reports some significant lateral pain, but also notes that her right arm is heavy and had difficulty lifting the extremity.) Teaching Patient Teaching: Discussed Safe Use of Pain Medication Given Recent Anesthesia
== END 2022-05-22 16:50 | disposition home or self-care (01) ==
PROVIDERS: PCP Family Medicine; Visit Provider Student in an Organized Health Care Education/Training Program
PROC: (CPT 29827; principal; 2022-05-22 11:00)
DX: S46.011A Strain of muscle(s) and tendon(s) of the rotator cuff of right shoulder, initial encounter (principal); S42.201A Unspecified fracture of upper end of right humerus, initial encounter for closed fracture; S42.251A Displaced fracture of greater tuberosity of right humerus, initial encounter for closed fracture; K21.9 Gastro-esophageal reflux disease without esophagitis; M79.7 Fibromyalgia; W19.XXXA Unspecified fall, initial encounter
CPT/HCPCS: 29827; 29828; 29826; 29823; 76942; 99213; J0131; J0690; J1100; J1170; J1885; J2250; J2370; J2405; J2704; J3010

== ENCOUNTER → 2022-06-03 12:59 | Outpatient (BNVA) | payer MEDICARE, SELFPAY | PROVIDERS: PCP Family Medicine; Referring Provider Family Medicine; Visit Provider Student in an Organized Health Care Education/Training Program | DX: S46.011D Strain of muscle(s) and tendon(s) of the rotator cuff of right shoulder, subsequent encounter (principal); S42.201D Unspecified fracture of upper end of right humerus, subsequent encounter for fracture with routine healing; X58.XXXD Exposure to other specified factors, subsequent encounter ==

== ENCOUNTER → 2022-07-22 12:53 | Outpatient (BNVA) | payer MEDICARE, SELFPAY | PROVIDERS: PCP Family Medicine; Referring Provider Family Medicine; Visit Provider Student in an Organized Health Care Education/Training Program | DX: M25.511 Pain in right shoulder; Z47.89 Encounter for other orthopedic aftercare ==

== ENCOUNTER 2022-08-20 01:56 | Outpatient (CLI) | payer MEDICARE, SELFPAY ==
--- NOTE | 2022-08-20 09:53 | DI.MAMMO_ITS ---
Exam(s) MG MAMMO DIAGNOSTIC BI EXAM: MG MAMMO DIAGNOSTIC BI CLINICAL HISTORY: DIAGNOSTIC, 6 MO F/U, R92.8 TECHNIQUE: Mammograms were interpreted according to the usual protocol including computer analysis w ith CAD system, tomosynthesis and C-view imaging. COMPARISON: MG Diagnostic Right Mammo from 10/28/2013 MG Screening Bilat Mammo from 10/16/2014 MG Screening Bilat Mammo from 10/18/2015 MG MG mammo screening from 05/13/2018 MG MG mammo screen call back UNI from 05/25/2018 MG MG MAMMO SCREENING from 06/02/2019 MG MG MAMMO SCREENING from 06/04/2020 MG MG MAMMO SCREENING from 07/23/2021 MG MG MAMMO SCREEN CALL BACK UNI from 08/07/2021 MG MG MAMMO DIAGNOSTIC UNI from 02/13/2022 US US BREAST LT LIMITED from 02/13/2022 FINDINGS: The breasts are composed of scattered fibroglandular densities, Breast Density category B. No suspicious masses or suspicious microcalcifications are seen. Stable appearance of 2 small nodules in the central left breast. No skin thickening or abnormal axillary lymph nodes are seen. There has been no significant change from prior exams. IMPRESSION: BI-RADS Cat 2 - Benign Findings Yearly screening mammography is recommended. Breast Density - Category B, scattered fibroglandular densities. A negative radiographic report should not delay biopsy if a dominant or clinically suspicious mass is present. Up to ten percent of cancers are not identified on mammography. A negative report may reinforce clinical impression. Adenosis and dense breasts may obscure an underlying neoplasm. False positive reports average 6 to 10%. Patient will receive a letter notifying them of these results.
== END 2022-08-20 02:16 ==
LOC: DI 01:57
PROVIDERS: PCP Family Medicine; Visit Provider Family Medicine
DX: R92.8 Other abnormal and inconclusive findings on diagnostic imaging of breast (principal); N60.82 Other benign mammary dysplasias of left breast
CPT/HCPCS: 77062; 77066; G0279

== ENCOUNTER → 2022-09-02 10:43 | Outpatient (BNVA) | payer MEDICARE, SELFPAY | PROVIDERS: PCP Family Medicine; Referring Provider Family Medicine; Visit Provider Student in an Organized Health Care Education/Training Program | DX: S46.011D Strain of muscle(s) and tendon(s) of the rotator cuff of right shoulder, subsequent encounter (principal); M25.611 Stiffness of right shoulder, not elsewhere classified; S42.201D Unspecified fracture of upper end of right humerus, subsequent encounter for fracture with routine healing; X58.XXXD Exposure to other specified factors, subsequent encounter | CPT/HCPCS: 99213 ==

== ENCOUNTER 2022-09-03 13:10 | Outpatient (REF) | payer MEDICARE, SELFPAY ==
[2022-09-03 15:51] LABS: Abs Immature Grans 0.01 10^3/uL (0.0-0.06); Absolute Basophil Count 0.03 10^3/uL (0.0-0.2); Absolute Eosinophil Count 0.11 10^3/uL (0.0-0.7); Absolute Lymphocyte Count 0.85 10^3/uL (1.2-3.4); Absolute Monocyte Count 0.45 10^3/uL (0.1-0.8); Absolute Neutrophil Count 3.65 10^3/uL (1.2-6.7); Basophils % 0.6; Eosinophils % 2.2; HCT 43.5 % (36.0-46.0); HGB 14.3 g/dL (11.2-15.7); Immature Grans % 0.2; Lymphocytes % 16.7; MCH 30.9 pg (27.0-33.0); MCHC 32.9 % (32.0-36.0); MCV 94 fL (80-95); MPV 10.9 fL (8.0-11.0); Monocytes % 8.8; Neutrophils % 71.5; Platelet Count 170 10^3/uL (130-400); RBC 4.63 10^6/uL (3.93-5.22); RDW 13.2 % (11.7-14.6); RDW-SD 45.6 fL
[2022-09-03 16:20] LABS: T4 9.5 ug/dL (4.7-13.3); TSH 1.45 uIU/mL (0.36-3.74)
[2022-09-04 20:29] LABS: T3, Total 168 ng/dL (97-169)
== END 2022-09-03 13:11 | disposition home or self-care (01) ==
LOC: NCHCN 13:10
PROVIDERS: PCP Family Medicine; Visit Provider Family Medicine
DX: R53.83 Other fatigue (principal)
CPT/HCPCS: 84436; 84443; 84480; 85025

== ENCOUNTER 2022-10-24 00:15 | Outpatient (CLI) | payer MEDICARE, SELFPAY ==
--- NOTE | 2022-10-24 07:00 | DI.US_ITS ---
Exam(s) US PELVIS TRANSVAGINAL EXAM: US PELVIS TRANSVAGINAL CLINICAL HISTORY: UTERINE ADNEXAL CYST, N83.8. TECHNIQUE: Transabdominal and transvaginal pelvic ultrasound was performed using standard protocol. COMPARISON: US US PELVIS TRANSVAGINAL from 06/28/[address] ABDOMEN PELVIS W from 03/20/2022 FINDINGS: UTERUS: Position: Anteverted. Size: 5.3 long by 2.9 AP by 4.2 transverse cm Endometrium: 0.2 cm. Normal for patient's menstrual status. There is a trace amount of fluid within t he endometrial canal. Myometrium: There does appear to be a slightly hypoechoic 1 x 1 x 0.9 cm fibroid in the fundus. Cervix: Unremarkable. OVARIES: Right: 2.2 x 2.2 x 1.4 cm Cyst or mass: No suspicious cystic or solid masses. Left: 1.8 x 0.9 x 1.6 cm Cyst or mass: No suspicious cystic or solid masses. DOPPLER: Color: Symmetric and uniform flow to both ovaries. CUL-DE-SAC: Free fluid: None. Other: There is a 3 x 1.4 x 1.6 cm cystic area seen in the left adnexa which appears to be separate f rom the ovary. This was present on the prior ultrasound. There also is a cystic structure in the le ft adnexa on the CT scan from 03/20/2022. This is nonspecific. A paraovarian cyst or other benign cy stic pelvic lesion cannot be excluded. IMPRESSION: 1. 1 cm uterine fibroid. 2. Unremarkable bilateral ovaries. 3. Stable left adnexal cystic structure. If further imaging is warranted, an MRI may be obtained for further evaluation. DATA REPOSITORY:
--- NOTE | 2022-10-24 08:00 | DI.CT_ITS ---
Exam(s) CT CHEST WO EXAM: CT CHEST WO CLINICAL HISTORY: PULMONARY NODULE, R91.1. TECHNIQUE: Imaging protocol: Axial computed tomography images were obtained and coronal and sagittal reformatted images were created and reviewed. COMPARISON: CT CT CHEST WO from 06/28/2021 FINDINGS: Tracheobronchial tree: Patent where visualized. Pulmonary parenchyma: No consolidation or dominant measurable mass. There is scarring or atelectasis in the left lower lobe. No new pulmonary nodules are seen. There is a 3 mm pulmonary nodule in the right lower lobe. Mediastinum and Toya: No dominant adenopathy or fluid collection. The esophagus is unremarkable. Thyroid gland: Unremarkable. Pleura: No effusion or pneumothorax. Heart: The heart is not dilated. Mild coronary artery calcification is present. No pericardial effus ion. Aorta: Thoracic aorta non-dilated. Atherosclerosis is present. Upper abdomen: Unremarkable. Postsurgical changes are seen at the gastroesophageal junction. Lymph nodes: Within normal limits. Soft tissues: Unremarkable. Bones:Within normal limits for the patient's age. IMPRESSION: 1. Stable pulmonary nodules. No new pulmonary nodules. 2. No acute pulmonary process. RADIATION DOSE DELIVERED: 580.26mGy.cm Total DLP 580.26mGy.cm Total DLP DATA REPOSITORY: All CT scans at this facility are submitted to the National Radiology Data Registry (NRDR) Dose Index Registry (DIR) with the [employer] (A[employer]). RADIATION OPTIMIZATION: All CT scans at this facility use at least one of these dose optimization te chniques: automated exposure control; mA and/or kV adjustment per patient size (includes targeted exa ms where dose is matched to clinical indication); or iterative reconstruction.
== END 2022-10-24 00:35 ==
LOC: DI 00:15
PROVIDERS: PCP Family Medicine; Visit Provider Family Medicine
DX: R91.1 Solitary pulmonary nodule (principal); N83.8 Other noninflammatory disorders of ovary, fallopian tube and broad ligament
CPT/HCPCS: 71250; 76830; 76856

== ENCOUNTER → 2022-12-02 10:55 | Outpatient (BNVA) | payer MEDICARE, SELFPAY | PROVIDERS: PCP Family Medicine; Referring Provider Family Medicine; Visit Provider Student in an Organized Health Care Education/Training Program | DX: S46.011D Strain of muscle(s) and tendon(s) of the rotator cuff of right shoulder, subsequent encounter (principal); S42.201D Unspecified fracture of upper end of right humerus, subsequent encounter for fracture with routine healing; X58.XXXD Exposure to other specified factors, subsequent encounter | CPT/HCPCS: 99213 ==

== ENCOUNTER → 2023-01-15 14:27 | Outpatient (BNVA) | payer MEDICARE, SELFPAY | PROVIDERS: PCP Family Medicine; Referring Provider Family Medicine; Visit Provider Nurse Practitioner Adult Health | DX: G43.109 Migraine with aura, not intractable, without status migrainosus (principal); G43.009 Migraine without aura, not intractable, without status migrainosus; F07.81 Postconcussional syndrome | CPT/HCPCS: 99204; 99215 ==

== ENCOUNTER → 2023-01-21 12:28 | Outpatient (BNVA) | payer MEDICARE, SELFPAY | PROVIDERS: PCP Family Medicine; Referring Provider Family Medicine; Visit Provider Nurse Practitioner Adult Health | DX: R51.9 Headache, unspecified (principal) | CPT/HCPCS: 64405 ==

== ENCOUNTER → 2023-02-04 10:51 | Outpatient (BNVA) | payer MEDICARE, SELFPAY | PROVIDERS: PCP Family Medicine; Referring Provider Family Medicine; Visit Provider Nurse Practitioner Adult Health | DX: M54.2 Cervicalgia (principal); G89.29 Other chronic pain; G44.309 Post-traumatic headache, unspecified, not intractable | CPT/HCPCS: 99214 ==

== ENCOUNTER → 2023-02-26 09:52 | Outpatient (BNVA) | payer MEDICARE, SELFPAY | PROVIDERS: PCP Family Medicine; Referring Provider Family Medicine; Visit Provider Nurse Practitioner Adult Health | DX: G43.009 Migraine without aura, not intractable, without status migrainosus (principal); G43.109 Migraine with aura, not intractable, without status migrainosus | CPT/HCPCS: 99211 ==

== ENCOUNTER 2023-03-05 02:38 | Outpatient (CLI) | payer MEDICARE, SELFPAY ==
--- NOTE | 2023-03-05 | DI.MRI_ITS ---
Exam(s) MR CERVICAL SPINE WO EXAM: MR CERVICAL SPINE WO CLINICAL HISTORY: POST TRAUMATIC HEADACHE,G44.309 TECHNIQUE: Multiplanar multisequence MRI of the cervical spine was performed without intravenous con trast. COMPARISON: CT CT HEAD CERVICAL SPINE WO from 12/23/2021 FINDINGS: BONES: Vertebral body heights are maintained. Intervertebral disc spaces are normal. Alignment is nor mal. There is a hemangioma or fatty rest in the C5 vertebral body. CERVICAL CORD: Craniovertebral junction is unremarkable. The cervical cord is normal size and signal intensity. No evidence of tonsillar ectopia or Chiari malformation. SOFT TISSUES: Unremarkable. C2-3: No disc herniation or bulge is identified. No significant central spinal canal or neural forami nal stenosis. C3-4: No disc herniation or bulge is identified. No significant central spinal canal or neural forami nal stenosis C4-5: No disc herniation or bulge is identified. No significant central spinal canal or neural forami nal stenosis C5-6: No disc herniation or bulge is identified. No significant central spinal canal or neural forami nal stenosis C6-7: No disc herniation or bulge is identified. No significant central spinal canal or neural forami nal stenosis C7-T1: No disc herniation or bulge is identified. No significant central spinal canal or neural obed inal stenosis IMPRESSION: No focal disc herniation, central spinal canal or neural foraminal stenosis is seen in the cervical s pine. DATA REPOSITORY:
== END 2023-03-05 02:58 ==
LOC: DI 02:39
PROVIDERS: PCP Family Medicine; Visit Provider Family Medicine
DX: G44.309 Post-traumatic headache, unspecified, not intractable (principal); R05.9 Cough, unspecified
CPT/HCPCS: 72141

== ENCOUNTER 2023-03-05 11:07 | Emergency (ER) | payer MEDICARE, SELFPAY ==
[2023-03-05] VITALS (26 sets, daily range): BP systolic 121–150; BP diastolic 71–81; PULSE 55–73; RESP 9–18; TEMP 36.7; O2SAT 96–97
--- NOTE | 2023-03-05 11:00 | RT.EKG_ITS ---
APPROVED REPORT Exam: Resting ECG Reason for Exam: lightheaded, dizzy Patient Location: E HR:60 bpm ECG Measurements Heart Rate 60 AXIS SC 204 P 35 QRSd 73 QRS -1 QT 408 T 8 QTc 408 Conclusion Sinus rhythm...normal P axis, V-rate 60- 99
--- NOTE | 2023-03-05 11:28 | W.ED.GENAD ---
Discharge Plan Disposition Patient Disposition: Home Condition: Stable Discharge Details Clinical Impression: Bradyarrhythmia, Postural dizziness with presyncope Primary Care Provider: Faith Fink ED Provider: Rico Godoy Meds and New Rx's Prescriptions: Continued diphenhydramine HCl [Allergy (diphenhydramine)] 25 mg tablet 25 mg PO Q6H PRN Emgality Pen 120 mg/mL pen injector 240 mg subcut ONCE Qty: 2 0RF Rx Instructions: as a single dose; administer as two 120 mg injections at separate sites gabapentin 100 mg capsule See Rx Instructions PO DAILY PRN (Reason: headaches) Qty: 60 1RF Rx Instructions: Take 100-300 mg daily as needed for headaches. meloxicam 7.5 mg tablet 7.5 mg PO BID PRN calcium carbonate 500 mg calcium (1,250 mg) tablet 1,250 mg PO DAILY [id number]-zwxanjuxulkak-ttnz 50-325-40 mg capsule 1 - 2 cap PO DAILY PRN trazodone 150 mg tablet 75 mg PO QHS PRN omeprazole 40 mg capsule,delayed release(DR/EC) 40 mg PO DAILY PRN acetaminophen 500 mg capsule 500 mg PO DIRECTED PRN fluticasone propionate [Flovent HFA] 220 mcg/actuation HFA aerosol inhaler 2 puff inhalation BID PRN albuterol sulfate [Proventil HFA] 90 mcg/actuation HFA aerosol inhaler 2 puff inhalation Q4H PRN cholecalciferol (vitamin D3) [Vitamin D3] 25 mcg (1,000 unit) tablet 2,000 unit PO DIRECTED ondansetron 4 mg tablet,disintegrating 4 mg PO Q6H PRN (Reason: nausea and vomiting) Qty: 10 0RF Discharge Instructions Instructions: Bradycardia (ED), Near Syncope (ED) Additional Instructions: please make appointment with cardiology about slow heart rate and a tilt test Referrals: Faith Fink [Primary Care Provider] - 3 days Discharge Data Discharge Physician: Rico Godoy Medical Decision Making MDM: Summary: Patient presents to the emergency department after she was an MRI and when she got out of the MRI table felt very dizzy and thought she was going to pass out. Apparently the patient has had these episodes of getting dizzy and she might have orthostasis but is not documented here for she takes medications for for migraines. CT scan of the head was negative x-ray was negative labs include troponin all were negative. At this point also the patient had a vdvhi-nu-pbqz ultrasound echocardiography done by me which is completely normal with normal aortic mitral valves normal ejection fraction no pericardial effusion. At this time the patient will be discharged home for her dizziness could be orthostatic hypotension which she will need a tilt test study. Data Review Analysis All the data on this patient was reviewed by me including laboratory and imaging studies as well as bedside studies performed by me Independent review of Studies Imaging Gevbn-fc-ydwy ultrasound CT scan were read as normal and interpreted by me Lab: Labs are unremarkable to include troponins CBC and chemistry Risk Stratification: Patient has been having 1 year of dizzy spells will need follow-up and a tilt table test for I believe this not neurological but more cardiovascular or orthostasis. This time she is stable and will be discharged home with close follow-up Differential Diagnosis: 1. Presyncope 2. Orthostatic hypotension 3. Valvular heart disease 4. Vasovagal 5. Bradycardia arrhythmia Consultants: Shared disposition: Patient presents disposition she will follow-up by her primary care doctor and I have advised her to get a cardiology appointment for 2 to Impression: Medical Records Medical records reviewed: Yes I reviewed the patient's medical records. Imaging Data Radiologic Study: Attestation: I personally reviewed and interpreted this imaging study as follows: Imaging: CT Scan My impression: No intracranial abnormality Radiologist's impression: No intracranial [place] as read by the radiologist Lab Data Lab results reviewed: Yes I reviewed the patient's lab results. ECG Data Attestation: I personally reviewed and interpreted this ECG (s) as follows: Prior ECG tracings: not available for review Interpretation: Heart is 60 normal sinus rhythm no acute ST-T changes HPI General Date/Time Provider Initiated Documentation: 03/05/23 11:28. HPI Narrative: Patient presents emergency department after she went to have an MRI in radiology and felt very dizzy and had a presyncopal episode. Patient states that she felt dizzy and this is happened several times presents was having an MRI of the neck. Reports that she feels dizzy and stumbles to the side but they have done all kinds of tests and nothing has come about. Patient otherwise is very healthy and this started about 2 years ago when she went on a trip to [place] and fell off a plane having significant trauma when she broke her right shoulder needed abrasions and is continued. Patient been followed by neurology. She also states that sometimes she has severe migraine headaches but today does not have any headache. Related Data Home Medications Medication Instructions Recorded Confirmed acetaminophen 500 mg capsule 500 mg PO DIRECTED PRN 06/18/21 03/05/23 albuterol sulfate 90 mcg/actuation 2 puff inhalation Q4H PRN 06/18/21 03/05/23 aerosol inhaler (Proventil HFA) wkywlltyrv-onwshtyivlydz-iijlfdzy 1 - 2 cap PO DAILY PRN 06/18/21 03/05/23 50 mg-325 mg-40 mg capsule calcium carbonate 500 mg calcium 1,250 mg PO DAILY 06/18/21 03/05/23 (1,250 mg) tablet cholecalciferol (vitamin D3) 25 2,000 unit PO DIRECTED 06/18/21 03/05/23 mcg (1,000 unit) tablet (Vitamin D3) fluticasone propionate 220 2 puff inhalation BID PRN 06/18/21 03/05/23 mcg/actuation HFA aerosol inhaler (Flovent HFA) meloxicam 7.5 mg tablet 7.5 mg PO BID PRN 06/18/21 03/05/23 omeprazole 40 mg capsule,delayed 40 mg PO DAILY PRN 06/18/21 03/05/23 release trazodone 150 mg tablet 75 mg PO QHS PRN 06/18/21 03/05/23 diphenhydramine HCl 25 mg tablet 25 mg PO Q6H PRN 08/14/21 03/05/23 (Allergy (diphenhydramine)) ondansetron 4 mg disintegrating 4 mg PO Q6H PRN nausea and 12/23/21 03/05/23 tablet vomiting #10 tabs gabapentin 100 mg capsule See Rx Instructions PO DAILY PRN 02/04/23 03/05/23 headaches #60 caps galcanezumab-gnlm 120 mg/mL 240 mg (2 mL) subcut ONCE #2 mL 02/04/23 03/05/23 subcutaneous pen injector (Emgality Pen) Previous Rx's Medication Instructions Recorded ondansetron 4 mg disintegrating 4 mg PO Q6H PRN nausea and 12/23/21 tablet vomiting #10 tabs gabapentin 100 mg capsule See Rx Instructions PO DAILY PRN 02/04/23 headaches #60 caps galcanezumab-gnlm 120 mg/mL 240 mg (2 mL) subcut ONCE #2 mL 02/04/23 subcutaneous pen injector (Emgality Pen) Allergies Allergy/AdvReac Type Severity Reaction Status Date / Time codeine Allergy Mild Itching Verified 03/05/23 11:41 hydromorphone Allergy Mild PRURITIS Verified 03/05/23 11:41 morphine Allergy Mild PRURITIS Verified 03/05/23 11:41 oxycodone Allergy Mild ITCH Verified 03/05/23 11:41 topiramate AdvReac Mild Nausea Verified 03/05/23 11:41 verapamil AdvReac HYPOTENSION Verified 03/05/23 11:41 General Stated Complaint: Dizzy/Sync SERENA: 3 Review of Systems Narrative: Review of Systems: Constitutional: No fevers, chills, sweats Eye: No recent visual problems ENT: No ear pain, nasal congestion, sore throat Respiratory: No shortness of breath, cough Cardiovascular: No Chest pain, palpitations, syncope Gastrointestinal: No nausea, vomiting, diarrhea Genitourinary: No hematuria Mynor/Lymph: Negative for bruising tendency, swollen lymph glands Endocrine: Negative for excessive thirst, excessive hunger Musculoskeletal: No back pain, neck pain, joint pain, muscle pain, decreased range of motion Integumentary: No rash, pruritus, abrasions Neurologic: Alert & oriented X 4 Psychiatric: No anxiety, depression PFSH All Active Problems (Updated 03/05/23 @ 14:52 by Rico Godoy MD) Postural dizziness with presyncope (Acute) Bradyarrhythmia (Acute) Neck pain, chronic (Acute) Post-concussion headache (Acute) Migraine headache without aura (Acute) Migraine headache with aura (Acute) Traumatic tear of right rotator cuff (Acute) Contusion of right knee (Acute) Closed fracture of right proximal humerus (Acute 12/14/21) Deviated nasal septum (Acute) Tonsillolith (Acute) Sensorineural hearing loss, bilateral (Acute) Pulsatile tinnitus, left ear (Acute) Shoulder pain, left (Acute) GERD (gastroesophageal reflux disease) (Chronic) Macular degeneration (Acute) Back pain, chronic (Acute) Knee pain, left (Acute) Shoulder pain, right (Acute) Osteoarthritis (Chronic) IBS (irritable bowel syndrome) (Chronic) Fibromyalgia (Acute) Depression (Chronic) Joint pain (Acute) Dry eyes (Acute) Insomnia (Acute) Complex cyst of uterine adnexa (Acute) Pulmonary nodule (Acute) Hearing loss (Acute) Status post sigmoid resection (Acute 07/26/13) Lap. Hand assisted sigmoid resection with colorectal anastomosis done by Dr. Jonathan Nguyen. Diverticulitis (Acute 07/26/13) Medical History Post concussive syndrome Hx of abnormal cervical Papanicolaou smear Migraine Asthma Hyperlipemia Tubular adenoma of colon Breast cyst Temporal arteritis Deep venous thrombosis of lower extremity (~1975) Surgical History History of Zabrina fundoplication H/O shoulder surgery H/O right wrist surgery History of bowel resection Hx of abdominal surgery History of bilateral tubal ligation History of knee replacement procedure of right knee Spinal Fusion (~06/2002) Fracture, Closed Treatment FEMUR; DR. ESQUEDA Family History Mother Essential hypertension Personal history of malignant neoplasm BREAST Hyperlipidemia Father Diabetes Heart disease Sister Diabetes Brother Diabetes Essential hypertension Personal history of malignant neoplasm COLON Hyperlipidemia Grandfather No problems noted. Grandfather No problems noted. Grandmother No problems noted. Grandmother No problems noted. Brother Alcohol abuse Personal history of malignant neoplasm LIVER Depression Obesity Brother No problems noted. Brother Diabetes Essential hypertension Heart disease Hyperlipidemia Brother Essential hypertension Heart disease Hyperlipidemia Myocardial infarction Brother Essential hypertension Depression Hyperlipidemia Sister Diabetes Essential hypertension Depression Hyperlipidemia Obesity Sister Benign neoplasm of brain Diabetes Essential hypertension Depression Hyperlipidemia Hypothyroidism Sister Diabetes Essential hypertension Depression Hyperlipidemia Sister Diabetes Essential hypertension Depression Hyperlipidemia Obesity Sister Diabetes Essential hypertension Hyperlipidemia Son Asthma Son No problems noted. Son Depression Asthma Social History Smoking/Tobacco Use Status: Former Tobacco Use Quit Date: 05/18/75 Smoking risk assessment performed?: Yes Alcohol Intake: current Alcohol Intake frequency: a few times a week Drug use: Never Substance use type: does not use Education Level: college Current gender identity: female What type of physical activity do you participate in: walking Duration: 15-30 minutes/day Frequency: 5-6 times per week Do you feel safe at home: Yes Do you feel safe in your relationship?: Yes Exam Narrative Exam Narrative: Exam; vitals signs as reported above normal Constitutional; In no acute distress, afebrile General: cooperative, healthy appearing, comfortable and no acute distress HEENT: Head: normal to inspection, no palpable skull fracture and normocephalic atraumatic Eyes: : appearance normal, both eyes and all related structures EOM intact bilaterally Pupils: PERRL : conjunctiva normal Direct ophthalmoscopy: normal light reflex, normal conjunctiva, normal visual acuity Ears: Normal TM, normal external canal Nose: normal no rhinorreha Neck no JVD, supple non tender Neck: normal visual inspection, full ROM and no lymphadenopathy Chest: normal inspection of the chest Respiratory : normal respiratory effort and able to speak in complete sentences no wheezing no rales Cardio Rate: regular rate, rhythm: regular rhythm normal heart sounds S1 and S2 no murmurs, gallops, or rubs GI : normal to inspection, normal bowel sounds, soft, non tender, non distended, no organomegaly Back/Spine/ no CVA tenderness Thoracic/Lumbar Spine: no tenderness or deformities Skin no rashes or lesions Neuro: patient alert oriented x 4 and no meningeal signs, Cranial Nerves: CN's II-XI intact bilaterally, Cognition: normal cognition, Speech: speech normal, Gait: normal gait, Depp tendon reflexes normal 2+ muscle strength 5/5 bilaterally Extremities, no edema, full range of motion, normal strength : normal Rectal: Course Vital Signs Vital signs: Vital Signs Temperature 36.7 C 03/05/23 11:12 Pulse 65 03/05/23 11:12 Respiratory Rate 12 03/05/23 11:12 Blood Pressure 149/78 H 03/05/23 11:12 Pulse Oximetry 97 03/05/23 11:12 Temperature 36.7 C 03/05/23 11:12 Temperature Source Oral 03/05/23 11:12 Pulse 65 03/05/23 11:12 Respiratory Rate 12 03/05/23 11:12 Blood Pressure 149/78 H 03/05/23 11:12 Pulse Oximetry 97 03/05/23 11:12 Oxygen Delivery Method Room Air 03/05/23 11:12 Oxygen Flow Rate 0 03/05/23 11:12 Pain Level 3 03/05/23 11:12 POCUS Exam (ED) Limited Cardiac Exam DATE OF EXAM: 03/05/23 TIME OF EXAM: 01:30 PROVIDER THAT PERFORMED THE STUDY: Rico Godoy REASON FOR EXAM: Hypotension VISUALIZED STRUCTURES: Four Chambers, Left atrium, Left ventricle, LVOT, Right atrium, Right ventricle, Aortic valve, Mitral valve, Interventricular septum and IVC VIEW OBTAINED: Apical 4-Chamber, Parasternal long-axis, Parasternal short-axis and Subxiphoid PERTINENT FINDINGS/IMPRESSION: No apparent abnormalities Exam complete
--- NOTE | 2023-03-05 11:30 | DI.CT_ITS ---
Exam(s) CT HEAD WO EXAM: CT HEAD WO CLINICAL HISTORY: dizziness, headacahe. TECHNIQUE: Imaging Protocol: Axial computed tomography images with coronal and sagittal reformatted images were created and reviewed COMPARISON: CT CT HEAD CERVICAL SPINE WO from 12/23/2021 FINDINGS: Ventricles and Extra axial spaces: Normal in size and morphology for the patient's age. Hemorrhage: None. Cerebral parenchyma: There are areas of decreased attenuation in the white matter likely reflecting s mall vessel ischemic disease. Stable parenchymal calcification is seen in the right basal ganglia. Midline shift: None. Brainstem/Cerebellum: Normal. Calvarium: Normal. Visualized Paranasal sinuses/Mastoids: Clear. Soft Tissues: Unremarkable. IMPRESSION: 1. No acute intracranial process. 2. Findings were discussed with the emergency department at 1:04 p.m. on 03/05/2023. RADIATION DOSE DELIVERED: Total DLP DATA REPOSITORY: All CT scans at this facility are submitted to the National Radiology Data Registry (NRDR) Dose Index Registry (DIR) with the [employer] (A[employer]). RADIATION OPTIMIZATION: All CT scans at this facility use at least one of these dose optimization te chniques: automated exposure control; mA and/or kV adjustment per patient size (includes targeted exa ms where dose is matched to clinical indication); or iterative reconstruction.
--- NOTE | 2023-03-05 11:40 | DI.RAD_ITS ---
Exam(s) XR CHEST 1V IN DI DEPT EXAM: XR CHEST 1V IN DI DEPT CLINICAL HISTORY: cough TECHNIQUE: 2D digital imaging was performed of the chest. One image was obtained. An AP view was ob tained. COMPARISON: CR,XR XR CHEST 1V IN DI DEPT from 05/04/2020 FINDINGS: MEDIASTINUM: Normal. HEART: Normal. PULMONARY VASCULATURE: Normal. LUNGS: Clear. PLEURAL SPACE: No pleural effusion or pneumothorax. BONE:Within normal limits for the patient's age. OTHER FINDINGS:Normal. IMPRESSION: No acute pulmonary findings. DATA REPOSITORY: RADIATION DOSE DELIVERED:
[2023-03-05] MEDS: Normal Saline 1,000 ML 1000 ML IV (11:57)
[2023-03-05 12:08] LABS: Abs Immature Grans 0.02 10^3/uL (0.0-0.06); Absolute Basophil Count 0.04 10^3/uL (0.0-0.2); Absolute Eosinophil Count 0.11 10^3/uL (0.0-0.7); Absolute Lymphocyte Count 1.11 10^3/uL (1.2-3.4); Absolute Monocyte Count 0.68 10^3/uL (0.1-0.8); Absolute Neutrophil Count 4.39 10^3/uL (1.2-6.7); Basophils % 0.6; Eosinophils % 1.7; HGB 13.9 g/dL (11.2-15.7); Immature Grans % 0.3; Lymphocytes % 17.5; MCH 30.5 pg (27.0-33.0); MCHC 33.1 % (32.0-36.0); MCV 92 fL (80-95); MPV 10.1 fL (8.0-11.0); Monocytes % 10.7; Neutrophils % 69.2; Platelet Count 171 10^3/uL (130-400); RBC 4.55 10^6/uL (3.93-5.22); WBC 6.35 10^3/uL (4.4-10.8)
[2023-03-05 12:35] LABS: ALT 27 U/L (14-59); AST 21 U/L (15-37); Albumin 3.7 g/dL (3.4-5.0); Alkaline Phosphatase 96 U/L (46-116); Anion Gap 7.7 mmol/L (3-11); BUN 14 mg/dL (7-18); Bilirubin, Total 0.4 mg/dL (0.2-1.0); CO2 27.3 mmol/L (21.0-32.0); CREATININE 0.8 mg/dL (0.55-1.02); Calcium 9.4 mg/dL (8.5-10.1); Chloride 104 mmol/L (98-107); Estimated GFR 75.84 (mL/min/1.73m2); Glucose 98 mg/dL (74-106); Magnesium 2.2 mg/dL (1.8-2.4); Potassium 3.9 mmol/L (3.5-5.1); Sodium 139 mmol/L (136-145); Troponin I < 50 ng/L (<or=60)
== END 2023-03-05 15:19 | disposition home or self-care (01) ==
PROVIDERS: Emergency Provider Emergency Medicine Emergency Medical Services; PCP Family Medicine
DX: R42 Dizziness and giddiness (principal); I49.8 Other specified cardiac arrhythmias; R51.9 Headache, unspecified; Z87.891 Personal history of nicotine dependence
CPT/HCPCS: 80053; 93005; 93308; 99285; 70450; 71045; 83735; 84484; 85025; 93010; 99284

== ENCOUNTER 2023-03-31 13:09 | Outpatient (CLI) | payer MEDICARE, SELFPAY ==
--- NOTE | 2023-03-31 11:30 | DI.RAD_ITS ---
Exam(s) XR SHOULDER RT COMPLETE 2+V EXAM: XR SHOULDER RT COMPLETE 2+V CLINICAL HISTORY: pain. TECHNIQUE: 2D digital imaging was performed. Five views. COMPARISON: CR XR SHOULDER RT COMPLETE 2+V from 03/05/2022 MR MR UPPER JOINT RT WO from 03/27/2022 FINDINGS: BONES: No acute fracture is present. Old mild humeral head fracture deformity. No bony destructive lesion is seen. JOINTS: No dislocation present. Glenohumeral joint space is maintained. Mild AC joint degenerative changes. Some spurring is noted at the undersurface of the acromion. SOFT TISSUE: Normal. IMPRESSION: Mild degenerative changes. DATA REPOSITORY: RADIATION DOSE DELIVERED:
== END 2023-03-31 13:10 | disposition home or self-care (01) ==
LOC: DIORS 13:09
PROVIDERS: PCP Family Medicine; Referring Provider Family Medicine; Visit Provider Student in an Organized Health Care Education/Training Program
DX: S42.201A Unspecified fracture of upper end of right humerus, initial encounter for closed fracture (principal); S46.011A Strain of muscle(s) and tendon(s) of the rotator cuff of right shoulder, initial encounter; S46.011D Strain of muscle(s) and tendon(s) of the rotator cuff of right shoulder, subsequent encounter; S42.201D Unspecified fracture of upper end of right humerus, subsequent encounter for fracture with routine healing; X58.XXXD Exposure to other specified factors, subsequent encounter
CPT/HCPCS: 20610; 73030; J1030

== ENCOUNTER 2023-04-02 08:49 | Outpatient (CLI) | payer MEDICARE, SELFPAY | END 2023-04-02 08:50 | disposition home or self-care (01) | PROVIDERS: PCP Family Medicine; Visit Provider Family Medicine | DX: R55 Syncope and collapse (principal) | CPT/HCPCS: 93246 ==

== ENCOUNTER → 2023-04-06 02:58 | Outpatient (CLI) | payer MEDICARE, SELFPAY ==
--- NOTE | 2023-04-06 | DI.DEXA_ITS ---
Exam(s) XR DEXA BONE DENSITY W/WO CHEL EXAM: XR DEXA BONE DENSITY W/WO CHEL CLINICAL HISTORY: Z79.899, M85.80, M81.8, M81.6, M81.0, OSTEOPOROSIS, [facility] TECHNIQUE: Hologic Horizon C densitometer analysis of left hip, lumbar spine and left forearm. Lat eral survey image of the thoracic and lumbar spine. COMPARISON: DX DEXA BONE DENSITY WITH CHEL from 10/13/2012 CR XR DEXA BONE DENSITY W/WO CHEL from 02/10/2019 CR XR DEXA BONE DENSITY W/WO CHEL from 04/05/2021 , 2018, 2012 FINDINGS: Lateral view of the thoracic and lumbar spine shows no evidence of compression fractures. Bone mineral density measurements of the lumbar spine correspond to a total T-score of -1.1, in the osteopenic range. Not significantly changed from 2020. 7.7 percent decrease from 2012. Bone mineral density measurements of the left hip correspond to a total T-score of -1.6. This repre sents a 2.4 percent decrease from 2020 and a 5.5 percent decrease from 2012.. The femoral neck T-sco re is -1.7, in the osteopenic range.. Theleft forearm bone mineral density measurements correspond to a T-score of the distal 3rd of -2.7, in the osteoporotic range. This represents a 5.1 percent decrease from 2020. The contralateral for earm was analyzed in 2012 and 2018. IMPRESSION: Osteopenia of the lumbar spine and left hip. Osteoporosis of the forearm.
== END ==
PROVIDERS: PCP Family Medicine; Visit Provider Internal Medicine Gastroenterology
DX: M81.0 Age-related osteoporosis without current pathological fracture (principal); Z13.820 Encounter for screening for osteoporosis; M85.89 Other specified disorders of bone density and structure, multiple sites; Z79.899 Other long term (current) drug therapy
CPT/HCPCS: 77080

== ENCOUNTER 2023-05-08 08:43 | Outpatient (CLI) | payer MEDICARE, SELFPAY ==
--- NOTE | 2023-05-08 09:19 | W.CARDEVENT ---
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 Numerous supraventricular ectopics with several episodes of supraventricular tachycardia, longest 20 beats, fastest 170 bpm. The patient's triggered events do not correspond to any arrhythmias. Impression: Paroxysmal supraventricular tachycardia
== END 2023-05-08 08:44 | disposition home or self-care (01) ==
LOC: CARDOPNVT 08:43
PROVIDERS: PCP Family Medicine; Visit Provider Internal Medicine Interventional Cardiology
DX: R55 Syncope and collapse (principal); I47.10 Supraventricular tachycardia, unspecified
CPT/HCPCS: 00123; 93248

== ENCOUNTER → 2023-07-07 10:59 | Outpatient (BNVA) | payer MEDICARE, SELFPAY | PROVIDERS: PCP Family Medicine; Referring Provider Family Medicine; Visit Provider Student in an Organized Health Care Education/Training Program | DX: S46.011D Strain of muscle(s) and tendon(s) of the rotator cuff of right shoulder, subsequent encounter (principal); S42.201D Unspecified fracture of upper end of right humerus, subsequent encounter for fracture with routine healing; X58.XXXD Exposure to other specified factors, subsequent encounter | CPT/HCPCS: 99213 ==

== ENCOUNTER 2023-09-26 11:08 | Outpatient (REF) | payer MEDICARE, SELFPAY ==
[2023-09-28 11:39] LABS: Lyme Ab w Rflx to Lyme Confirm Negative (Negative)
[2023-09-30 01:05] LABS: Anaplasma phagocytophilum Negative (Negative); B. miyamotoi PCR Negative (Negative); Babesia divergens/MO-1 Negative (Negative); Babesia duncani Negative (Negative); Babesia microti Negative (Negative); Ehrlichia chaffeensis Negative (Negative); Ehrlichia ewingii/canis Negative (Negative); Ehrlichia muris eauclairensis Negative (Negative)
== END 2023-09-26 11:09 | disposition home or self-care (01) ==
LOC: LBN 11:08
PROVIDERS: PCP Family Medicine; Visit Provider Nurse Practitioner Family
DX: W57.XXXA Bitten or stung by nonvenomous insect and other nonvenomous arthropods, initial encounter (principal); S40.862A Insect bite (nonvenomous) of left upper arm, initial encounter; X58.XXXA Exposure to other specified factors, initial encounter
CPT/HCPCS: 87798; 86618

== ENCOUNTER 2023-11-03 09:46 | Outpatient (CLI) | payer MEDICARE, SELFPAY ==
--- NOTE | 2023-11-03 08:30 | DI.RAD_ITS ---
Exam(s) XR SHOULDER LT COMPLETE 2+V EXAM: XR SHOULDER LT COMPLETE 2+V CLINICAL HISTORY: shoulder pain. TECHNIQUE: 2D digital imaging was performed. COMPARISON: CR XR SHOULDER RT COMPLETE 2+V from 03/31/2023 CR XR WRIST RT COMPLETE from 11/03/2023 FINDINGS: Two views. No evidence of acute fracture. There is a biceps tenodesis site in the proximal diaphysis of the hum erus. There are some degenerative changes noted in the glenohumeral joint. Degenerative subarticula r cysts are noted there is also small osteophyte on the inferior articular surface of the osseous gle noid. Some degenerative cysts are noted in the humeral head. There is slight upward subluxation of the hum eral head in the osseous glenoid. IMPRESSION: As above. DATA REPOSITORY: RADIATION DOSE DELIVERED:
--- NOTE | 2023-11-03 08:30 | DI.RAD_ITS ---
Exam(s) XR WRIST RT COMPLETE EXAM: XR WRIST RT COMPLETE CLINICAL HISTORY: wrist pain. TECHNIQUE: 2D digital imaging was performed. COMPARISON: CR XR WRIST RT COMPLETE from 06/14/2021 FINDINGS: 3 views No evidence of fracture or dislocation nor significant ulnar variance. There is some calcification n oted in the triangular fibrocartilage on the medial aspect of the wrist. Laterally there is moderate degenerative change in the triscaphe joint as well as in the 1st carpomet acarpal joint. IMPRESSION: Degenerative changes. No fractures. DATA REPOSITORY: RADIATION DOSE DELIVERED:
== END 2023-11-03 09:47 | disposition home or self-care (01) ==
LOC: DIORS 09:47
PROVIDERS: PCP Family Medicine; Referring Provider Family Medicine; Visit Provider Student in an Organized Health Care Education/Training Program
DX: S63.501A Unspecified sprain of right wrist, initial encounter; S46.812A Strain of other muscles, fascia and tendons at shoulder and upper arm level, left arm, initial encounter; W01.0XXA Fall on same level from slipping, tripping and stumbling without subsequent striking against object, initial encounter
CPT/HCPCS: 99213; 73030; 73110

== ENCOUNTER 2023-11-12 15:12 | Outpatient (REF) | payer MEDICARE, SELFPAY ==
[2023-11-12 14:35] LABS: HCT 42.9 % (36.0-46.0); HGB 14.3 g/dL (11.2-15.7); MCH 31.6 pg (27.0-33.0); MCHC 33.3 % (32.0-36.0); MCV 95 fL (80-95); MPV 10.9 fL (8.0-11.0); Platelet Count 183 10^3/uL (130-400); RBC 4.52 10^6/uL (3.93-5.22); RDW 13.2 % (11.7-14.6); RDW-SD 46.5 fL; WBC 5.41 10^3/uL (4.4-10.8)
[2023-11-12 14:54] LABS: ALT 30 U/L (14-59); AST 22 U/L (15-37); Albumin 3.7 g/dL (3.4-5.0); Alkaline Phosphatase 106 U/L (46-116); Anion Gap 9.2 mmol/L (3-11); BUN 14 mg/dL (7-18); CO2 28.8 mmol/L (21.0-32.0); CREATININE 0.9 mg/dL (0.55-1.02); Calcium 8.8 mg/dL (8.5-10.1); Chloride 106 mmol/L (98-107); Estimated GFR 65.44 (mL/min/1.73m2); FREE T4 0.99 ng/dL (0.76-1.46); Glucose 99 mg/dL (74-106); Potassium 4.1 mmol/L (3.5-5.1); Sodium 144 mmol/L (136-145); TSH 2.73 uIU/Ml (0.36-3.74); Total Protein 6.6 g/dL (6.4-8.2)
[2023-11-12 15:37] LABS: Calculated LDL 142 mg/dL (<100); Cholesterol 216 mg/dL (<200); HDL Cholesterol 62 mg/dL (40-60); Triglyceride 64 mg/dL (<150); Vitamin D 25 Total 40.1 ng/mL (30-100)
[2023-11-12 22:44] LABS: CRP, High Sensitivity 4.03 mg/L (See Note)
== END 2023-11-12 15:13 | disposition home or self-care (01) ==
LOC: NCHCN 15:12
PROVIDERS: PCP Family Medicine; Visit Provider Family Medicine
DX: E78.5 Hyperlipidemia, unspecified (principal); Z00.00 Encounter for general adult medical examination without abnormal findings; M19.90 Unspecified osteoarthritis, unspecified site
CPT/HCPCS: 80053; 80061; 82306; 85027; 86141; 84439; 84443

== ENCOUNTER 2024-11-23 19:11 | Outpatient (REF) | payer MEDICARE, SELFPAY ==
[2024-11-23 21:06] LABS: Abs Immature Grans 0.01 10^3/uL (0.0-0.06); HCT 44.7 % (36.0-46.0); HGB 14.9 g/dL (11.2-15.7); Immature Grans % 0.1 %; MCH 31.4 pg (27.0-33.0); MCHC 33.3 % (32.0-36.0); MCV 94 fL (80-95); MPV 11.1 fL (8.0-11.0); Platelet Count 188 10^3/uL (130-400); RBC 4.75 10^6/uL (3.93-5.22); RDW 13.0 % (11.7-14.6); RDW-SD 44.9 fL; WBC 6.90 10^3/uL (4.4-10.8)
[2024-11-23 21:18] LABS: ALT 31 U/L (14-59); AST 23 U/L (15-37); Albumin 3.9 g/dL (3.4-5.0); Alkaline Phosphatase 97 U/L (46-116); Anion Gap 8.6 mmol/L (3-11); BUN 18 mg/dL (7-18); Bilirubin, Total 0.4 mg/dL (0.2-1.0); CO2 27.4 mmol/L (21.0-32.0); Calcium 8.6 mg/dL (8.5-10.1); Calculated LDL 161 mg/dL (<100); Chloride 106 mmol/L (98-107); Cholesterol 253 mg/dL (<200); Estimated GFR 57.31 (mL/min/1.73m2); Glucose 99 mg/dL (74-106); HDL Cholesterol 60 mg/dL (>or=50); Potassium 4.2 mmol/L (3.5-5.1); Sodium 142 mmol/L (136-145); Total Protein 6.9 g/dL (6.4-8.2); Triglyceride 162 mg/dL (<150)
[2024-11-23 21:45] LABS: C-Reactive Protein < 0.50 mg/dL (<or=0.5)
== END 2024-11-23 19:12 | disposition home or self-care (01) ==
LOC: NCHCN 19:11
PROVIDERS: PCP Family Medicine; Visit Provider Family Medicine
DX: E78.5 Hyperlipidemia, unspecified (principal); M31.6 Other giant cell arteritis; K21.9 Gastro-esophageal reflux disease without esophagitis
CPT/HCPCS: 80053; 80061; 85025; 86140

== ENCOUNTER 2025-01-02 09:12 | Outpatient (CLI) | payer MEDICARE, SELFPAY ==
--- NOTE | 2025-01-02 | DI.MAMMO_ITS ---
Exam(s) US BREAST LT COMPLETE US BREAST RT COMPLETE MG MAMMO DIAGNOSTIC BI EXAM: MG MAMMO DIAGNOSTIC BI AND BILATERAL COMPLETE BREAST ULTRASOUND CLINICAL HISTORY: Mastodynia, N64.4-lt breast pain, due for annual screening. TECHNIQUE: BILATERAL CC AND MLO mammographic images were obtained with 3D tomosynthesis technique and utilizing computer aided detection (CAD). BILATERAL COMPLETE BREAST ULTRASOUND performed including all 4 quadrants of both breasts as well as both axillary regions. COMPARISON: Prior mammograms were reviewed, the most recent being August 2022. . This 79-year-old patient feels pain in the lateral aspect of her left breast and claims that she thinks that she ???sometimes feels??? a small nodule at this level smaller than a green pea. Denies skin rash. No recent shingles infection. FINDINGS: DIAGNOSTIC BILATERAL MAMMOGRAM: There are no new left breast findings. There are 3 small adjacent nodular densities in the central left breast which are unchanged from recent mammograms and correspond to adjacent microcysts on today's sound. There are no malignant-appearing microcalcification groups in the left breast. No new architectural distortion or skin thickening-retraction In the right breast there is a new oval nodular density located 6 cm in from the nipple on the CC view and measuring 5 x 4 mm. There are no malignant-appearing microcalcification groups in the right breast No new architectural distortion or skin thickening-retraction. We proceeded with bilateral breast ultrasound exam... BILATERAL COMPLETE BREAST ULTRASOUND: LEFT BREAST ULTRASOUND: There are no significant ultrasound findings in her area of clinical concern in the lateral aspect of the left breast. The finding seen at 1 o'clock position by the technologist is not reproducible. At the peripheral 2 o'clock position there is lateral thoracic lymph lobe noted. At the 4 o'clock position there are 3 small microcysts, the largest measuring 5 x 3 mm. These correspond to the small nodules which have been present on recent mammograms. No other significant focal findings in the left breast. Scanning of the left axilla is negative for adenopathy. RIGHT BREAST ULTRASOUND: At the 1 o'clock position there is a 5 x 4 mm benign microcyst which corresponds to the new nodule on today's mammogram. Peripherally at the 9 o'clock position there is a lateral thoracic 7 millimeter benign lymph node noted and peripherally to 10 o'clock position there is another similar benign-appearing lateral thoracic lymph node. Scanning of the right axilla reveals no significant adenopathy IMPRESSION: 1. No mammographic and no ultrasound findings in her area of pain in the lateral left breast. Other findings described above in the left breast are small benign microcysts which correspond to finding which has been present on recent mammograms. No radiographic evidence of malignancy in left breast. 2. There is a new 5 x 4 mm nodule on today's right breast mammogram which corresponds to a benign microcyst on the ultrasound. 3. There are no new findings on mammogram or ultrasound which require biopsy. Appropriate follow-up is repeat breast imaging in 6 months if she continues to have pain in the left breast, earlier if clinically indicated.. The patient was informed of the findings and follow-up by myself recommendations prior to leaving the department today. BI-RADS Category 2 - Benign Findings Breast Density - Category B - There are scattered areas of fibroglandular density. Breast density Category C or D implies that the patient has dense breast tissue. Dense breast tissue can make it harder to find cancer on a mammogram. Dense breast tissue is also associated with an increased risk of breast cancer. This information about the result of the mammogram report was provided to the patient to raise their awareness. Use this report when you speak with the patient about their risks for breast cancer, which includes their family history. At that time, you may recommend additional screening tests (Ultrasound or MRI) as these tests may add significant information. A negative radiographic report should not delay biopsy if a dominant or clinically suspicious mass is present. Up to ten percent of cancers are not identified on mammography. A negative report may reinforce clinical impression. Adenosis and dense breasts may obscure an underlying neoplasm. False positive reports average 6 to 10%. Patient will receive a letter notifying them of these results.
== END 2025-01-02 09:32 ==
LOC: DI 09:13
PROVIDERS: PCP Family Medicine; Visit Provider Family Medicine
DX: Z12.31 Encounter for screening mammogram for malignant neoplasm of breast (principal); N64.4 Mastodynia; N63.22 Unspecified lump in the left breast, upper inner quadrant
CPT/HCPCS: 76642; 77062; 77066; G0279